=== PATIENT | male | born 1955 | race Caucasian/White ===

== ENCOUNTER 2021-08-05 01:08 | Outpatient (CLI) | payer MEDICARE, SELFPAY ==
--- NOTE | 2021-08-05 | DI.RAD_ITS ---
Exam(s) XR CHEST 2V PA LATERAL EXAM: XR CHEST 2V PA LATERAL CLINICAL HISTORY: COUGH, R05,CHILLS TECHNIQUE: 2D digital imaging was performed of the chest. Two images were obtained. PA and lateral views were obtained. COMPARISON: CR CHEST 2 VIEWS PA,LAT from 05/26/2015 CR CHEST 2 VIEWS PA,LAT from 05/26/2015 FINDINGS: MEDIASTINUM: Normal. HEART: Normal. PULMONARY VASCULATURE: Normal. LUNGS: There is a infiltrate seen in the left lower lobe. The lungs are hyperinflated suggesting und erlying COPD. PLEURAL SPACE: No pleural effusion or pneumothorax. BONE:Within normal limits for the patient's age. OTHER FINDINGS:Normal. IMPRESSION: Left lower lobe infiltrate suspicious for pneumonia. A follow-up chest x-ray should be considered to document resolution of the infiltrate. DATA REPOSITORY: RADIATION DOSE DELIVERED:
== END 2021-08-05 01:28 ==
PROVIDERS: PCP Family Medicine; Visit Provider Internal Medicine
DX: R05.9 Cough, unspecified (principal); R91.8 Other nonspecific abnormal finding of lung field
CPT/HCPCS: 71046

== ENCOUNTER 2021-08-08 13:03 | Inpatient (IN) | payer MEDICARE, SELFPAY ==
[2021-08-08] VITALS (7 sets, daily range): BP systolic 109–134; BP diastolic 65–107; PULSE 62–79; RESP 3–21; TEMP 36.3–37; O2SAT 90–93
--- NOTE | 2021-08-08 13:30 | DI.RAD_ITS ---
Exam(s) XR PORTABLE CHEST AP EXAM: XR PORTABLE CHEST AP CLINICAL HISTORY: cough, pneumonia TECHNIQUE: 2D digital imaging was performed of the chest. Two images was obtained. An AP view was o btained. COMPARISON: CR XR CHEST 2V PA LATERAL from 08/05/2021 CR XR CHEST 2V PA LATERAL from 08/05/2021 FINDINGS: MEDIASTINUM: Normal. HEART: Normal. PULMONARY VASCULATURE: Normal. LUNGS: There is a been a progression of the ground-glass opacities in the left lung and now involves the right lung. PLEURAL SPACE: No pleural effusion or pneumothorax. BONE:Within normal limits for the patient's age. OTHER FINDINGS:Normal. IMPRESSION: Progression radiographically of the pneumonia since 08/05/2021. DATA REPOSITORY: RADIATION DOSE DELIVERED:
--- NOTE | 2021-08-08 13:39 | W.ED.GENAD ---
Discharge Plan Disposition Patient Disposition: [facility] INPATIENT Condition: Stable Discharge Details Chief Complaint: RespSymp Clinical Impression: Pneumonia Primary Care Provider: Heath Anderson ED Provider: Yair Platt Home Meds and New Rx's Prescriptions: No Action naproxen sodium 550 MG tablet 2 tab PO DAILY RF: 0 omeprazole 20 MG capsule,delayed release(DR/EC) 20 mg PO DAILY RF: 0 albuterol sulfate 8.5 GM HFA aerosol inhaler 2 puff Inhalation PRN PRNRF: 0 Rituxan 500 MG/50 ML concentrate DIRECTED RF: 0 budesonide-formoterol [Symbicort] 60 PUFF HFA aerosol inhaler 2 puff Inhalation BID RF: 0 lisinopril 5 MG tablet 5 mg PO DAILY RF: 0 amoxicillin-pot clavulanate 1 TAB tablet 1 ea PO BID Qty: 20 RF: 0 Medical Decision Making 66-year-old male with a history of COPD presents with 10 days of upper respiratory illness. He states he had a negative Covid test. He was seen as an outpatient and given azithromycin for 5 days with a burst of prednisone, now has been taking Augmentin for 4 days. He has persistent cough, congestion, production of sputum, mild wheeze, and noted to have room air oxygenation in the mid to low 80 percentile at home today. He states he has had intermittent fevers and chills. Patient arrives to the ER afebrile, slightly hypertensive, oxygenating 90 to 91% on room air. He has audible rhonchi at the bases, left greater than right. He is failing outpatient antibiotic and has been hypoxic. Concern for pneumonia the patient was referred for laboratory testing and repeat chest x-ray. He has slight hyponatremia of 135. White blood cell count is 5. X-ray reveals persistent left base infiltrate. Given the patient underlying lung disease, poor response to a second outpatient oral antibiotic, I do feel he merits treatment in the hospital. HPI General Mode of arrival: ambulatory. Date/Time Provider Initiated Documentation: 08/08/21 13:12. Limitations to Documentation: no limitations. Information obtained by: patient. History of Present Illness 66 year old M presents to the emergency department with the chief complaint of Persistent cough for 10+ days, described as moderate, Quality is described as dull, and is localized to the chest. Patient reports no radiation. Patient started experiencing this day(s) and it has been intermittent. No relieving factors improve symptom(s), No exacerbating factors reported . Patient notes cough, diaphoresis, fever/chills and shortness of breath; denies chest pain and syncope. Patient did receive the following treatments prior to arrival, other (Augmentin) Related Data Home Medications Medication Instructions Recorded Confirmed albuterol sulfate 2 puff INHALATION PRN PRN 05/26/15 08/08/21 budesonide-formoterol [Symbicort 2 puff INHALATION BID 05/26/15 08/08/21 160/4.5 Mcg Inhaler] naproxen sodium 2 tab PO DAILY 05/26/15 08/08/21 omeprazole 20 mg PO DAILY 05/26/15 08/08/21 rituximab [Rituxan] DIRECTED 05/26/15 08/06/15 lisinopril 5 mg PO DAILY 08/05/15 08/08/21 amoxicillin-pot clavulanate 1 ea PO BID #20 tab 08/06/15 08/08/21 Previous Rx's Medication Instructions Recorded amoxicillin-pot clavulanate 1 ea PO BID #20 tab 08/06/15 Allergies Allergy/AdvReac Type Severity Reaction Status Date / Time celecoxib [From Celebrex] AdvReac Nausea Unverified 08/08/21 13:23 General Stated Complaint: RespSymp MADELEINE: 3 Review of Systems Narrative: Immunized against COVID-19. Fever and chills at home. Completed a Z-Milind and brief burst of prednisone during the first week of the month, now on day 4 of Augmentin. Positive sputum production. 8 systems reviewed and otherwise negative PFSH All Active Problems (Updated 08/08/21 @ 14:57 by Yair Platt MD) Pneumonia (Acute) COPD (chronic obstructive pulmonary disease) (Chronic) Medical History (Updated 08/08/21 @ 14:57 by Yair Platt MD) Rheumatoid arthritis Social History Smoking/Tobacco Use Status: Former Tobacco Use Smoking risk assessment performed?: Yes Alcohol Intake: current Drug use: Never Substance use type: does not use Do you feel safe at home: Yes Do you feel safe in your relationship?: Yes Exam Narrative Exam Narrative: GEN: awake, alert, oriented 3. Pleasant, well groomed, interactive. HEAD: Normocephalic, atraumatic ENT: Mucous membranes moist, oropharynx unremarkable, External ear exam unremarkable EYES: PERRL, EOMI NECK: Full ROM, no ROSANGELA, no menigismus CHEST/RESP: Few end expiratory wheezes, predominantly left base rhonchi CARDIOVASCULAR: RRR, no murmur, rub tonja. 2+ Rad pulse bilateral ABDOMEN: Soft, nontender, no mass. +Bowel sounds EXT: Full ROM, no edema, no rash Neuro: Grossly normal neurologic exam, conversant, interactive. Psych: Speech fluent, thoughts congruent, affect normal Course Vital Signs Vital signs: Vital Signs Temperature 37 C 08/08/21 13:18 Pulse 70 08/08/21 13:18 Respiratory Rate 18 08/08/21 13:18 Blood Pressure 134/107 H 08/08/21 13:18 Pulse Oximetry 91 L 08/08/21 13:18 Temperature 37 C 08/08/21 13:18 Temperature Source Temporal Artery Scan 08/08/21 13:18 Pulse 70 08/08/21 13:18 Respiratory Rate 18 08/08/21 13:18 Respiratory Effort Short of Breath 08/08/21 13:26 Blood Pressure 134/107 H 08/08/21 13:18 Blood Pressure Position Sitting 08/08/21 13:18 Pulse Oximetry 91 L 08/08/21 13:18 Oxygen Delivery Method Room Air 08/08/21 13:18 Oxygen Flow Rate 0 08/08/21 13:18 Pain Level 0 08/08/21 13:18 PAWSS Have you Been Recently Intoxicated or Drunk Within the Last 30 days?: No Have you Ever Experienced Previous Episodes of Alcohol Withdrawal?: No Have you ever Experienced Withdrawal Seizures?: No Have you ever Experienced Delirium Tremens(DT)s?: No Have you ever undergone Alcohol Rehabilitation Treatment (i.e, inpt ot outpatient treatment programs)?: No Have you ever Experienced Blackouts?: No Have you ever Combined Alcohol with other Downers within the last 90 days?: No Have you ever Combined Alcohol with any other Substance of Abuse during the last 90 days?: No Result: 0
[2021-08-08 13:50] LABS: Source Nasal/Nares
[2021-08-08] MEDS: Normal Saline 1,000 ML 150 ML IV (14:05)
[2021-08-08 14:10] LABS: Abs Immature Grans 0.04 10^3/uL (0.0-0.06); Absolute Lymphocyte Count 0.32 10^3/uL (1.2-3.4); Absolute Monocyte Count 0.33 10^3/uL (0.1-0.8); Absolute Neutrophil Count 4.64 10^3/uL (1.2-6.7); HCT 47.5 % (40.0-50.0); HGB 15.7 g/dL (13.5-17.5); Immature Grans % 0.8; MCH 29.3 pg (27.0-33.0); MCHC 33.1 % (32.0-36.0); MCV 88.6 fL (80-95); MPV 10.2 fL (8.0-11.0); Monocytes % 6.2; Nucleated RBC 0 %; Platelet Count 248 10^3/uL (130-400); RBC 5.36 10^6/uL (4.36-5.78); RDW 11.9 % (11.8-14.1); RDW-SD 38.4 fL; WBC 5.33 10^3/uL (4.4-10.8)
[2021-08-08] MEDS: methylPREDNISolone SUCC 125 MG VIAL IVP (14:11)
[2021-08-08] MEDS: Normal Saline Flush 10 ML SYR IVP ×2 (14:11→19:57)
[2021-08-08 14:23] LABS: ALT 31 U/L (16-63); AST 43 U/L (15-37); Albumin 2.7 g/dL (3.4-5.0); Alkaline Phosphatase 126 U/L (46-116); Anion Gap 8.2 mmol/L (3-11); BUN 16 mg/dL (7-18); Bilirubin, Total 0.6 mg/dL (0.2-1.0); CO2 28.8 mmol/L (21.0-32.0); CREATININE 1.1 mg/dL (0.70-1.30); Calcium 8.7 mg/dL (8.5-10.1); Chloride 98 mmol/L (98-107); Glucose 99 mg/dL (74-106); Sodium 135 mmol/L (136-145); Total Protein 6.9 g/dL (6.4-8.2)
[2021-08-08] MEDS: cefTRIAXone 1 GM/50 ML BAG IVPB (15:12)
[2021-08-08] MEDS: DOXYCYCLINE 100 MG in Normal Saline 100 ML IVPB (15:51)
[2021-08-08 15:58] LABS: COVID-19 PCR Negative (Negative)
--- NOTE | 2021-08-08 16:00 | DI.VRAD_ITS ---
PROCEDURE INFORMATION: Exam: XR Chest Exam date and time: 08/08/2021 1:40 PM Age: 66 years old Clinical indication: Cough TECHNIQUE: Imaging protocol: XR of the chest. Views: 1 view. COMPARISON: CR XR CHEST 2V PA LATERAL 08/05/2021 10:31 AM FINDINGS: Lungs: Hyperinflation. No focal consolidation. Mild patchy right mid and lower lung zone ground-glass opacities, similar to prior. Possible new mild patchy right mid and lower ground-glass lung zone opacities. Pleural spaces: Unremarkable. No pleural effusion. No pneumothorax. Heart/Mediastinum: Unremarkable. No cardiomegaly. Bones/joints: Unremarkable. IMPRESSION: Mild patchy bilateral ground-glass opacities, similar on left and new on right. In the appropriate setting, findings may represent multifocal pneumonia including Covid pneumonia. Dictated and Authenticated by: Keira Spencer MD. Ordering:TIANA Mazariegos MD
[2021-08-08] MEDS: Albuterol/Ipratropium 3 ML UPD VIAL UPD (19:57)
[2021-08-08] MEDS: Doxycycline Hyclate 100 MG CAP PO (20:06)
[2021-08-08] MEDS: guaiFENesin 600 MG TABCR PO (20:06)
[2021-08-08] MEDS: Benzonatate 100 MG CAP PO (20:06)
[2021-08-08] MEDS: Naproxen 500 MG TAB PO (22:39)
[2021-08-09] VITALS (7 sets, daily range): BP systolic 110–135; BP diastolic 75–85; PULSE 53–74; RESP 1–19; TEMP 36.2–36.7; O2SAT 93–95
[2021-08-09] MEDS: Normal Saline 1,000 ML 150 ML IV ×2 (00:11→06:05)
[2021-08-09] MEDS: Heparin 5,000 UNITS/ML VIAL 5000 UNITS SC ×3 (03:18→18:27)
[2021-08-09] MEDS: Acetaminophen 325 MG TAB 650 MG PO ×3 (03:29→23:25)
[2021-08-09 06:54] LABS: Abs Immature Grans 0.01 10^3/uL (0.0-0.06); Absolute Lymphocyte Count 0.27 10^3/uL (1.2-3.4); Absolute Monocyte Count 0.19 10^3/uL (0.1-0.8); Absolute Neutrophil Count 1.17 10^3/uL (1.2-6.7); HCT 39.9 % (40.0-50.0); HGB 13.3 g/dL (13.5-17.5); Immature Grans % 0.6; Lymphocytes % 16.5; MCH 29.2 pg (27.0-33.0); MCHC 33.3 % (32.0-36.0); MCV 87.5 fL (80-95); MPV 10.6 fL (8.0-11.0); Monocytes % 11.6; Neutrophils % 71.3; Nucleated RBC 0 %; RBC 4.56 10^6/uL (4.36-5.78); RDW 11.9 % (11.8-14.1); RDW-SD 38.5 fL
[2021-08-09 06:59] LABS: WBC 1.64 10^3/uL (4.4-10.8)
[2021-08-09 07:08] LABS: ALT 29 U/L (16-63); AST 35 U/L (15-37); Albumin 2.2 g/dL (3.4-5.0); Alkaline Phosphatase 93 U/L (46-116); Anion Gap 6.8 mmol/L (3-11); BUN 18 mg/dL (7-18); Bilirubin, Total 0.4 mg/dL (0.2-1.0); CO2 28.2 mmol/L (21.0-32.0); Calcium 8.5 mg/dL (8.5-10.1); Chloride 106 mmol/L (98-107); Glucose 170 mg/dL (74-106); Magnesium 2.2 mg/dL (1.8-2.4); Potassium 4.3 mmol/L (3.5-5.1); Sodium 141 mmol/L (136-145); Total Protein 5.8 g/dL (6.4-8.2)
--- NOTE | 2021-08-09 07:08 | HPE_ITS ---
Date of service: 08/08/21 Time of Service: 16:41 Assessment and Plan Assessment and plan (1) Pneumonia: Status: Acute Assessment and plan: LLL infiltrate that has increased since previous xray of 08/05/21. WBC count normal. Viral etiology? Rocephin and Doxycycline initiated in ED; continue. Qualifiers: Pneumonia type: due to unspecified organism Laterality: left (2) COPD (chronic obstructive pulmonary disease): Status: Chronic Assessment and plan: Former smoker Secondary to pneumonia. Cont Symbicort / home med. Scheduled Duonebs. PRN albuterol nebs. IV solumedrol given in ED. Cont oral prednisone 40mg daily. For cough, Mucinex and tessalon perls. Add codeine if needed. (3) Rheumatoid arthritis: Status: Acute History of Present Illness History of Present Illness Chief Complaint: Shortness of breath and cough Narrative: This is a 66 yo male that has a PMH of COPD and RA. He presented to the ED with c/o cough, shortness of breath, feeling hot/cold, for 10+ days. The cough is occasionally productive but he feels there is phlegm that he can't expectorate. He notes hearing wheezes. No CP/palpitations. He was evaluated as an outpt and initially txd with azithromycin for 5 days and prednisone. He was then given augmentin that he has taken TID for 2 1/2 days. He was COVID negative as an outpt. CXR showed a possibly developing LLL infiltrate. In the ED he was afebrile. RA oxygen saturation of 90-91%. WBC count normals. Rhonchi were noted. He was given a nebulized albuterol treat ment with some noted improvement. Covid and influenza testing were negative. CXR showed increased LLL infiltrate. Admitted for further treatment given failure of outpt tx. Review of Systems All systems reviewed & are unremarkable except as noted in HPI and below PFSH All Active Problems (Updated 08/09/21 @ 07:22 by Dimas Cox MD) Rheumatoid arthritis (Acute) Pneumonia (Acute) COPD (chronic obstructive pulmonary disease) (Chronic) Medical History Rheumatoid arthritis Social History Smoking/Tobacco Use Status: Former Tobacco Use Smoking risk assessment performed?: Yes Alcohol Intake: current Drug use: Never Substance use type: does not use Do you feel safe at home: Yes Do you feel safe in your relationship?: Yes Meds Allergies and Home Medications Allergies Allergy/AdvReac Type Severity Reaction Status Date / Time celecoxib [From Celebrex] AdvReac Nausea Unverified 08/08/21 13:23 Home Medications Medication Instructions Recorded Confirmed Type albuterol sulfate 2 puff INHALATION PRN PRN 05/26/15 08/08/21 History budesonide-formoterol [Symbicort 2 puff INHALATION BID 05/26/15 08/08/21 History 160/4.5 Mcg Inhaler] naproxen sodium 2 tab PO DAILY 05/26/15 08/08/21 History omeprazole 20 mg PO DAILY 05/26/15 08/08/21 History rituximab [Rituxan] DIRECTED 05/26/15 08/06/15 History lisinopril 5 mg PO DAILY 08/05/15 08/08/21 History amoxicillin-pot clavulanate 1 ea PO BID #20 tab 08/06/15 08/08/21 Rx Exam Const General: cooperative, no acute distress and well developed Nutritional Appearance: overweight Orientation: alert and oriented x3 Eyes General: appearance normal, both eyes and all related structures Sclera: sclerae normal Chest Chest: no tenderness Resp Effort & Inspection: normal respiratory effort Auscultation: clear to auscultation bilaterally and diminished lung sounds Cardio Rate: regular rate Rhythm: regular rhythm Heart Sounds: S1 normal and S2 normal GI Palpation: soft and nontender Auscultation: normal bowel sounds Skin General skin exam: no rashes or lesions noted Extrem General: no pedal edema and no calf tenderness Psych Appearance: grossly normal Mental Status: mental status grossly normal Speech and Movement: speech and movement normal Affect: normal affect Results Labs Result diagrams: 08/08/21 14:05 08/08/21 14:05 Labs: Laboratory Results - last 24 hr 08/08/21 08/08/21 08/08/21 13:45 14:05 14:05 WBC 5.33 RBC 5.36 Hgb 15.7 Hct 47.5 MCV 88.6 MCH 29.3 MCHC 33.1 RDW 11.9 Plt Count 248 MPV 10.2 Immature Gran % 0.8 Neutrophils % 87.0 Lymphocytes % 6.0 Monocytes % 6.2 Eosinophils % 0.0 Basophils % 0.0 Nucleated RBC % 0 Absolute Neutrophils 4.64 Absolute Lymphocytes 0.32 L Absolute Monocytes 0.33 Absolute Eosinophils 0.00 Absolute Basophils 0.00 Sodium 135 L Potassium 5.0 Chloride 98 Carbon Dioxide 28.8 Anion Gap 8.2 BUN 16 Creatinine 1.1 Estimated GFR/1.73 m2 >= 60.00 Glucose 99 Calcium 8.7 Total Bilirubin 0.6 AST 43 H ALT 31 Alkaline Phosphatase 126 H Total Protein 6.9 Albumin 2.7 L COVID-19 Source Nasal/Nares SARS-CoV-2 (PCR) Negative Last Vital Signs Temp 36.2 C L 08/09/21 00:12 Pulse 59 L 08/09/21 00:12 Resp 16 08/09/21 00:12 BP 110/75 08/09/21 00:12 Pulse Ox 95 08/09/21 05:25 PAWSS Have you Been Recently Intoxicated or Drunk Within the Last 30 days?: No Have you Ever Experienced Previous Episodes of Alcohol Withdrawal?: No Have you ever Experienced Withdrawal Seizures?: No Have you ever Experienced Delirium Tremens(DT)s?: No Have you ever undergone Alcohol Rehabilitation Treatment (i.e, inpt ot outpatient treatment programs)?: No Have you ever Experienced Blackouts?: No Have you ever Combined Alcohol with other Downers within the last 90 days?: No Have you ever Combined Alcohol with any other Substance of Abuse during the last 90 days?: No Result: 0
[2021-08-09 07:15] LABS: Diff Comment Agrees w/ Instrument; Platelet Count 188 10^3/uL (130-400); RBC Morphology Normal
[2021-08-09] MEDS: Benzonatate 100 MG CAP PO ×3 (08:14→21:07)
[2021-08-09] MEDS: guaiFENesin 600 MG TABCR PO ×2 (08:14→21:07)
[2021-08-09] MEDS: predniSONE 20 MG TAB 40 MG PO (08:14)
[2021-08-09] MEDS: Budesonide/Formoterol 80/4.5 6.9 GM 60 PUFF INH IH ×2 (08:14→21:04)
[2021-08-09] MEDS: Lisinopril 5 MG TAB PO (08:14)
[2021-08-09] MEDS: Doxycycline Hyclate 100 MG CAP PO (08:14)
[2021-08-09] MEDS: Naproxen 500 MG TAB PO ×2 (08:14→21:07)
[2021-08-09] MEDS: Albuterol/Ipratropium 3 ML UPD VIAL UPD ×3 (08:14→21:05)
[2021-08-09] MEDS: Omeprazole 20 MG CAPCR PO (08:14)
[2021-08-09] MEDS: Normal Saline Flush 10 ML SYR IVP (14:22)
[2021-08-09] MEDS: cefTRIAXone 1 GM/50 ML BAG IVPB (14:22)
--- NOTE | 2021-08-09 15:04 | W.PM.PROGNOT ---
Date of Service Date of service: 08/09/21 Time of Service: 15:05 Assessment and Plan Assessment and plan (1) Pneumonia: Status: Acute Assessment and plan: LLL infiltrate that has increased since previous xray of 08/05/21. WBC count normal on admission; now 1.64 with an ANC of 1170. He is immunocompromised d/t 3x/year administration of Rituxan for RA. Afebrile. Viral etiology? COVID negative on admission and multiple times recently prior to admission. found she was COVID position with mild URI sxs just after getting her COVID booster. Rocephin and Doxycycline initiated in ED. Continued Ropcephin. Monitor CBC/ANC. If develops fever or becomes neutropenic, broaden antibiotic coverage. Qualifiers: Pneumonia type: due to unspecified organism Laterality: left (2) COPD (chronic obstructive pulmonary disease): Status: Chronic Assessment and plan: Former smoker Secondary to pneumonia. Cont Symbicort / home med. Scheduled Duonebs. PRN albuterol nebs. IV solumedrol given in ED. Cont oral prednisone 40mg daily. For cough, Mucinex and tessalon perls. Add codeine if needed. (3) Rheumatoid arthritis: Status: Acute Assessment and plan: On Rituxan 3x / year. Subjective Subjective Patient reports: no new complaints, tolerating a regular diet and afebrile; denies nausea, vomiting and shortness of breath Interval history since last seen: Cough with small amounts of sputum on occasion. Exam Const General: cooperative, no acute distress and well developed Nutritional Appearance: overweight Orientation: alert and oriented x3 Eyes General: appearance normal, both eyes and all related structures Sclera: sclerae normal Chest Chest: no tenderness Resp Effort & Inspection: normal respiratory effort Auscultation: clear to auscultation bilaterally and diminished lung sounds Cardio Rate: regular rate Rhythm: regular rhythm Heart Sounds: S1 normal and S2 normal GI Palpation: soft and nontender Auscultation: normal bowel sounds Skin General skin exam: no rashes or lesions noted Extrem General: no pedal edema and no calf tenderness Psych Appearance: grossly normal Mental Status: mental status grossly normal Speech and Movement: speech and movement normal Affect: normal affect Objective Last Vital Signs Temp 36.2 C L 08/09/21 08:27 Pulse 53 L 08/09/21 08:27 Resp 16 08/09/21 08:27 BP 135/85 08/09/21 08:27 Pulse Ox 95 08/09/21 08:27 Laboratory Results - last 24 hr 08/08/21 08/09/21 08/09/21 13:45 06:20 06:20 WBC 1.64 L* D RBC 4.56 Hgb 13.3 L D Hct 39.9 L MCV 87.5 MCH 29.2 MCHC 33.3 RDW 11.9 Plt Count 188 MPV 10.6 Immature Gran % 0.6 Neutrophils % 71.3 Lymphocytes % 16.5 Monocytes % 11.6 Eosinophils % 0.0 Basophils % 0.0 Nucleated RBC % 0 Absolute Neutrophils 1.17 L Absolute Lymphocytes 0.27 L Absolute Monocytes 0.19 Absolute Eosinophils 0.00 Absolute Basophils 0.00 RBC Morphology Normal Sodium 141 Potassium 4.3 Chloride 106 Carbon Dioxide 28.2 Anion Gap 6.8 BUN 18 Creatinine 1.0 Estimated GFR/1.73 m2 >= 60.00 Glucose 170 H Calcium 8.5 Magnesium 2.2 Total Bilirubin 0.4 AST 35 ALT 29 Alkaline Phosphatase 93 Total Protein 5.8 L Albumin 2.2 L SARS-CoV-2 (PCR) Negative PAWSS Have you Been Recently Intoxicated or Drunk Within the Last 30 days?: No Have you Ever Experienced Previous Episodes of Alcohol Withdrawal?: No Have you ever Experienced Withdrawal Seizures?: No Have you ever Experienced Delirium Tremens(DT)s?: No Have you ever undergone Alcohol Rehabilitation Treatment (i.e, inpt ot outpatient treatment programs)?: No Have you ever Experienced Blackouts?: No Have you ever Combined Alcohol with other Downers within the last 90 days?: No Have you ever Combined Alcohol with any other Substance of Abuse during the last 90 days?: No Result: 0
--- NOTE | 2021-08-09 16:56 | PDOC.CMIN ---
- If Service Date Differs Date of service: 08/09/21 Time of Service: 16:56 Care Management Initial Assess REASON FOR HOSPITALIZATION:: Pneumonia, COPD Exacerbation PAST MEDICAL HISTORY/PAST SURGICAL HISTORY:: Rheumatoid arthritis;Rituxan 3x / year. Pneumonia. COPD (chronic obstructive pulmonary disease) (Chronic) PREVIOUS FUNCTIONAL STATUS/SOCIAL/FAMILY SUPPORTS:: Resides in [place] with , Li. Independent at baseline in the community. CURRENT FUNCTIONAL STATUS:: Yair continues to be treated for pneumonia with COPD exacerbation, he remains on IV ABX, duonebs, steroids and cough suppresants. He is maintaining sats on RA. He is up independently in his room with no needs or concerns noted at this time. CM continues to follow. ADVANCE DIRECTIVES:: None on file at [facility]. Has patient been provided with info about the portal/API?: No Did the patient sign up for the portal?: No CODE STATUS:: Full Code INSURANCE COVERAGE / FINANCIAL ISSUES:: Multiple insurances listed;. [employer]. Medicare. [employer]. 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 PATIENT/FAMILY EDUCATION NEEDS:: Review discharge instructions, discuss Ask Me Three. ANTICIPATED BARRIERS TO DISCHARGE:: None identified. TRANSPORTATION:: Via private vehicle with family or a friend. PLAN:: Anticipate Yair will return home with no additional services, when ready per MD. He will follow up with his PCP and plan of care as prescribed. He will transport via private vehicle with family or a friend.
--- NOTE | 2021-08-10 | DI.CT_ITS ---
Exam(s) CT CHEST PE CTA EXAM: CT CHEST PE CTA CLINICAL HISTORY: Increased SOA. Pneumonia. TECHNIQUE: Imaging Protocol: Axial CT angiography was performed with multi-slice acquisition and mu lti-planar and/or 3D reconstructions. CONTRAST MATERIAL: Intravenous: Omnipaque 350 Contrast volume:90 mL COMPARISON: CR,XR XR PORTABLE CHEST AP from 08/08/2021 CR,XR XR PORTABLE CHEST AP from 08/08/2021 FINDINGS: Tracheobronchial tree: Patent where visualized. Pulmonary parenchyma: Multifocal bilateral ground-glass opacities are present. Small areas of atelec tasis or consolidation are seen in the lung bases bilaterally, right greater than left. No user experience architect ural distortion. Pulmonary Arteries: No evidence of filling defect to suggest pulmonary emboli. Mediastinum and Kimmy: There are enlarged mediastinal and hilar lymph nodes. These are likely reactiv e. The esophagus is unremarkable except for small hiatal hernia. Visualized thyroid gland: Unremarkable. Pleura: No pneumothorax. Small bilateral pleural effusions, left greater than right. Heart: The heart is not dilated. No coronary artery calcifications are seen. No pericardial effusion. Aorta: Thoracic aorta non-dilated. No evidence of dissection. Mild atherosclerosis. Upper abdomen: Status post cholecystectomy. Soft tissues: Unremarkable. Bones: Within normal limits for the patient's age. IMPRESSION: 1. No evidence of pulmonary embolism, thoracic aortic dissection or aneurysm. 2. Multifocal bilateral pneumonia. Possibility of a COVID-19 pneumonia cannot be excluded. 3. Small bilateral pleural effusions. 4. Mediastinal and hilar lymph node enlargement. This may be reactive. RADIATION DOSE DELIVERED: Total DLP DATA REPOSITORY: All CT scans at this facility are submitted to the National Radiology Data Registry (NRDR) Dose Index Registry (DIR) with the [employer] [place] [employer] (ACR). RADIATION OPTIMIZATION: All CT scans at this facility use at least one of these dose optimization te chniques: automated exposure control; mA and/or kV adjustment per patient size (includes targeted exa ms where dose is matched to clinical indication); or iterative reconstruction.
[2021-08-10] MEDS: Heparin 5,000 UNITS/ML VIAL 5000 UNITS SC ×3 (02:18→18:48)
[2021-08-10 07:32] LABS: Abs Immature Grans 0.06 10^3/uL (0.0-0.06); Absolute Lymphocyte Count 0.29 10^3/uL (1.2-3.4); Absolute Monocyte Count 0.22 10^3/uL (0.1-0.8); Absolute Neutrophil Count 6.42 10^3/uL (1.2-6.7); HCT 38.3 % (40.0-50.0); Immature Grans % 0.9; Lymphocytes % 4.1; MCH 29.5 pg (27.0-33.0); MCHC 33.9 % (32.0-36.0); MCV 86.8 fL (80-95); MPV 10.7 fL (8.0-11.0); Monocytes % 3.1; Neutrophils % 91.9; Nucleated RBC 0 %; Platelet Count 231 10^3/uL (130-400); RBC 4.41 10^6/uL (4.36-5.78); WBC 6.99 10^3/uL (4.4-10.8)
[2021-08-10 07:44] VITALS: BP 126/70; PULSE 76; RESP 16; TEMP 36.8; O2SAT 94
[2021-08-10] MEDS: predniSONE 20 MG TAB 40 MG PO (08:55)
[2021-08-10] MEDS: Albuterol/Ipratropium 3 ML UPD VIAL UPD ×3 (08:55→19:38)
[2021-08-10] MEDS: Naproxen 500 MG TAB PO ×2 (08:55→19:39)
[2021-08-10] MEDS: Lisinopril 5 MG TAB PO (08:55)
[2021-08-10] MEDS: guaiFENesin 600 MG TABCR PO ×2 (08:55→19:39)
[2021-08-10] MEDS: Budesonide/Formoterol 80/4.5 6.9 GM 60 PUFF INH IH ×2 (08:55→19:57)
[2021-08-10] MEDS: Omeprazole 20 MG CAPCR PO (08:55)
[2021-08-10] MEDS: Benzonatate 100 MG CAP PO ×3 (08:55→19:39)
[2021-08-10 09:25] VITALS: RESP 1
--- NOTE | 2021-08-10 10:34 | CMPROGNOTE_ITS ---
- If Service Date Differs Date of service: 08/10/21 Time of Service: 10:34 Care Management Progress Note S/O: Yair was pleasant and easily engaged in conversation when CM met with him. He is being treated with IV antibiotics and steroids. He has been up independently in his room and would like a shower. There is not a shower in his room, and CM reported request to nursing. CM will continue to support patient and his discharge planning needs. A: 66 year old male admitted to [facility] on 08/08/21 for Pneumonia, COPD exacerbation P: Anticipate Yair will return home with no additional services when ready per MD. He will follow up with his PCP and plan of care as prescribed. He will transport via private vehicle with family or a friend.
[2021-08-10] MEDS: cefTRIAXone 1 GM/50 ML BAG IVPB (14:02)
[2021-08-10] MEDS: Normal Saline Flush 10 ML SYR IVP (14:02)
--- NOTE | 2021-08-10 14:39 | TELEFU_ITS ---
Date of service: 08/10/21 Time of Service: 14:39 Nutrition Note NOTE: 66yo male with PNA, COPD. Meds: Benzonatate, Budesonide, Ceftriaxon, Guaifenesin, Lisinopril, Naproxen, Omeprazole, Prednisone with Acetaminophen, Albuterol, Karen and Polyethylene glycol prn. Current BMI of 28.2kh/m2 is c/w overweight but not of clinical concern and stable. He is tolerating regular/normal diet order with 100% intake from meal trays since admission. Estimated nutrition needs: 2028kcals (REEx1.3AF), 98g protein (1.2g/kg) and 2028mL fluid (1mL/kcal). Diagnosis: no notable nutrition diagnoses Intervention: no aggressive nutrition intervention planned at this time Monitoring/evaluation: Will follow for any deterioration of nutrition status during admission. Roberto Carlos Rizo NDTR ? Chain Forming Machine Operator Time Spent in Nutritional Counseling and Treatment: 0
[2021-08-10 15:30] VITALS: BP 122/75; PULSE 83; RESP 17; TEMP 37; O2SAT 94
--- NOTE | 2021-08-10 16:44 | W.PM.PROGNOT ---
Date of Service Date of service: 08/10/21 Time of Service: 16:44 Assessment and Plan Assessment and plan (1) Pneumonia: Status: Acute Assessment and plan: LLL infiltrate that has increased since previous xray of 08/05/21. WBC count normal on admission; then 1.64 with an ANC of 1170 on 08/09. WBC and ANC normal today. He is immunocompromised d/t 3x/year administration of Rituxan for RA. Afebrile. Viral etiology? COVID negative on admission and multiple times recently prior to admission. found she was COVID position with mild URI sxs just after getting her COVID booster. Rocephin and Doxycycline initiated in ED. Continued Ropcephin. Monitor CBC/ANC. Given increased ESCOBAR today and rales, will obtain CT chest to further evaluate pneumonia and r/o pulmonary emboli. Qualifiers: Pneumonia type: due to unspecified organism Laterality: left (2) COPD (chronic obstructive pulmonary disease): Status: Chronic Assessment and plan: Former smoker Secondary to pneumonia. Cont Symbicort / home med. Scheduled Duonebs. PRN albuterol nebs. IV solumedrol given in ED. Cont oral prednisone 40mg daily. For cough, Mucinex and tessalon perls. Add codeine if needed. (3) Rheumatoid arthritis: Status: Acute Assessment and plan: On Rituxan 3x / year. Subjective Subjective Patient reports: no new complaints, tolerating a regular diet, shortness of breath (With ambulation to bathroom and back. Had not occured during this hospitalization until today. ) and afebrile; denies nausea and vomiting Interval history since last seen: Cough with small amounts of sputum on occasion. Exam Const General: cooperative, no acute distress and well developed Nutritional Appearance: overweight Orientation: alert and oriented x3 Eyes General: appearance normal, both eyes and all related structures Sclera: sclerae normal Chest Chest: no tenderness Resp Effort & Inspection: normal respiratory effort Auscultation: clear to auscultation bilaterally, diminished lung sounds and rales Cardio Rate: regular rate Rhythm: regular rhythm Heart Sounds: S1 normal and S2 normal GI Palpation: soft and nontender Auscultation: normal bowel sounds Skin General skin exam: no rashes or lesions noted Extrem General: no pedal edema and no calf tenderness Psych Appearance: grossly normal Mental Status: mental status grossly normal Speech and Movement: speech and movement normal Affect: normal affect Objective Last Vital Signs Temp 37 C 08/10/21 15:30 Pulse 83 08/10/21 15:30 Resp 17 08/10/21 15:30 BP 122/75 08/10/21 15:30 Pulse Ox 94 08/10/21 15:30 Laboratory Results - last 24 hr 08/10/21 06:41 WBC 6.99 D RBC 4.41 Hgb 13.0 L Hct 38.3 L MCV 86.8 MCH 29.5 MCHC 33.9 RDW 12.0 Plt Count 231 MPV 10.7 Immature Gran % 0.9 Neutrophils % 91.9 Lymphocytes % 4.1 Monocytes % 3.1 Eosinophils % 0.0 Basophils % 0.0 Nucleated RBC % 0 Absolute Neutrophils 6.42 Absolute Lymphocytes 0.29 L Absolute Monocytes 0.22 Absolute Eosinophils 0.00 Absolute Basophils 0.00 PAWSS Have you Been Recently Intoxicated or Drunk Within the Last 30 days?: No Have you Ever Experienced Previous Episodes of Alcohol Withdrawal?: No Have you ever Experienced Withdrawal Seizures?: No Have you ever Experienced Delirium Tremens(DT)s?: No Have you ever undergone Alcohol Rehabilitation Treatment (i.e, inpt ot outpatient treatment programs)?: No Have you ever Experienced Blackouts?: No Have you ever Combined Alcohol with other Downers within the last 90 days?: No Have you ever Combined Alcohol with any other Substance of Abuse during the last 90 days?: No Result: 0
[2021-08-10] MEDS: Omnipaque 350 MG/ML 100 ML BTL IJ (17:33)
--- NOTE | 2021-08-10 17:51 | DI.VRAD_ITS ---
Addendum created by Jordon Amaro MD on 08/10/2021 6:18:59 PM EST: Mild cardiac enlargement. No pericardial effusion. No specific chamber pathology evident. Initial report created on 08/10/2021 5:51:06 PM EST: PROCEDURE INFORMATION: Exam: CTA Chest With Contrast Exam date and time: 08/10/2021 4:44 PM Age: 66 years old Clinical indication: Condition or disease; Lung condition and disease; Patient HX: Increased SOA, pneumonia TECHNIQUE: Imaging protocol: Computed tomographic angiography of the chest with contrast. 3D rendering (Not supervised by radiologist): MIP and/or 3D reconstructed images were created by the technologist. COMPARISON: CR XR PORTABLE CHEST AP 08/08/2021 2:11 PM FINDINGS: Pulmonary arteries: Pulmonary arteries well opacified. No embolism. Aorta: Thoracic aorta is unremarkable in course and caliber. Lungs: Multifocal pneumonitis is evident. There is multi segmental airspace consolidation in the left upper lobe and the left lower lobe. There is near holo lobar involvement of the right lower lobe. The medial segment of the right middle lobe has infiltrative features. The right upper lobe has some subsegmental areas of mild infiltrate. The pattern of pneumonia has somewhat of a ground-glass appearance. A denser area of subsegmental consolidation is noted in the right posterior costophrenic sulcus. This may represent atelectasis. Possibility of a COVID-19 pneumonia cannot be excluded. Recommend clinical correlation. Pleural spaces: Small left pleural effusion. Minimal right pleural effusion. Heart: See Lymph nodes finding. Lymph nodes: Left AP window lymph node is enlarged measuring 2.4 x 1.8 cm. Subcarinal lymph node is 2.4 x 1.9 cm. Diaphragm: Minor hiatal hernia. No acute edema. Gallbladder and bile ducts: Previous cholecystectomy. Bones/joints: Unremarkable. No acute fracture. Soft tissues: Unremarkable. IMPRESSION: 1. Bilateral pneumonitis. 2. No pulmonary arterial embolism evident. 3. Minor bilateral pleural effusions. 4. Mild lymph node enlargement of mediastinum. Dictated and Authenticated by: Jordon Amaro MD. Ordering:MELISSA Cochran MD
--- NOTE | 2021-08-10 18:11 | NUR.NOTE ---
Nursing Note: Spoke with patient and tonight, states they talked with MD Cox today, told him he would switch to a q24 blood thinner, was not changed. Patient states he has not been getting any sleep and feels he would really like to rest more tonight. Advised I would see if night nurse can cluster care and limit interruptions. Also suggested to patient that he can ring when he wakes up at night to void and cluster care then.
[2021-08-10 19:30] VITALS: BP 128/78; PULSE 88; RESP 18; TEMP 37.9; O2SAT 94
[2021-08-10 19:38] VITALS: TEMP 37.9; O2SAT 94
[2021-08-10] MEDS: Acetaminophen 325 MG TAB 650 MG PO (19:38)
--- NOTE | 2021-08-10 19:45 | NUR.NOTE ---
Nursing Note: Spoke with patient, still not feeling well, felt better yesterday, and worse again today like when he came to the ED. Patient states it hurts his chest when he takes a deep breath, reports it as a tightness. States he feels like he is getting winded easily and just can't catch his breath. Patient report previously being able to get up to 4000 on his IS, now only able to get to around 200, occasionally 3500, but very difficult to get there. Skin color looks slightly red-purplish, temp 37.9. Lung sounds clear. ADAIR Rdz notified, and assessed pt at well. Pt very frustrated when mentioning potential COVID test again. Patient states he feels this is related to lack of sleep. MD [place] notified, pt to get [employer] covid swab tonight and encourage rest tonight. Will continue to monitor.
[2021-08-10 21:42] LABS: COVID-19 PCR POSITIVE (Negative)
--- NOTE | 2021-08-10 21:56 | W.PM.PROGNOT ---
Date of Service Date of service: 08/10/21 Time of Service: 21:57 Subjective Subjective Interval history since last seen: Calledfor fever. case reviewed. briefly, 66 male with RA and known COVID exposure here with pneumonia, on Rocephin. Has been COVID negative x 2. fever this evening at approx 48 hour point [address] treatment[address] chest shows bilateral and substantial pneumonits c/w COVID and, though comparison is difficult, to my eye appears progressive from earlier CXR. repeat COVID tonight is positive. O2 sat 94%. A/P: COVID pneumonitis. Based on immunocompromised status and worsening imaging I would, despite present freedom from oxygen requirement, certified alcohol and drug counselor patient at moderate to high risk of progression and I think aggressive treatment would be sky. Will begin Remdesivir, steroids and Baricitinib. Objective Last Vital Signs Temp 37.9 C H 08/10/21 19:38 Pulse 83 08/10/21 15:30 Resp 17 08/10/21 15:30 BP 122/75 08/10/21 15:30 Pulse Ox 94 08/10/21 19:38 Laboratory Results - last 24 hr 08/10/21 08/10/21 06:41 20:05 WBC 6.99 D RBC 4.41 Hgb 13.0 L Hct 38.3 L MCV 86.8 MCH 29.5 MCHC 33.9 RDW 12.0 Plt Count 231 MPV 10.7 Immature Gran % 0.9 Neutrophils % 91.9 Lymphocytes % 4.1 Monocytes % 3.1 Eosinophils % 0.0 Basophils % 0.0 Nucleated RBC % 0 Absolute Neutrophils 6.42 Absolute Lymphocytes 0.29 L Absolute Monocytes 0.22 Absolute Eosinophils 0.00 Absolute Basophils 0.00 COVID-19 Source NASOPHARYX SARS-CoV-2 (PCR) POSITIVE A* PAWSS Have you Been Recently Intoxicated or Drunk Within the Last 30 days?: No Have you Ever Experienced Previous Episodes of Alcohol Withdrawal?: No Have you ever Experienced Withdrawal Seizures?: No Have you ever Experienced Delirium Tremens(DT)s?: No Have you ever undergone Alcohol Rehabilitation Treatment (i.e, inpt ot outpatient treatment programs)?: No Have you ever Experienced Blackouts?: No Have you ever Combined Alcohol with other Downers within the last 90 days?: No Have you ever Combined Alcohol with any other Substance of Abuse during the last 90 days?: No Result: 0
[2021-08-11] VITALS (11 sets, daily range): BP systolic 113–130; BP diastolic 69–82; PULSE 67–78; RESP 1–24; TEMP 36.6–37.5; O2SAT 89–97
[2021-08-11] MEDS: REMDESIVIR 200 MG in Normal Saline 250 ML 250 MG IVPB (00:03)
[2021-08-11] MEDS: Dexamethasone 4 MG/ML VIAL 6 MG IVP (00:03)
[2021-08-11] MEDS: Melatonin 3 MG TAB PO (00:04)
[2021-08-11] MEDS: Naproxen 500 MG TAB PO ×2 (07:46→20:40)
[2021-08-11] MEDS: guaiFENesin 600 MG TABCR PO ×2 (07:46→20:40)
[2021-08-11] MEDS: Dexamethasone 4 MG TAB PO (07:46)
[2021-08-11] MEDS: Benzonatate 100 MG CAP PO ×3 (07:46→20:40)
[2021-08-11] MEDS: Omeprazole 20 MG CAPCR PO (07:46)
[2021-08-11] MEDS: Lisinopril 5 MG TAB PO (07:47)
[2021-08-11] MEDS: predniSONE 20 MG TAB 40 MG PO (07:47)
[2021-08-11 07:57] LABS: Abs Immature Grans 0.07 10^3/uL (0.0-0.06); Absolute Lymphocyte Count 0.11 10^3/uL (1.2-3.4); Absolute Monocyte Count 0.11 10^3/uL (0.1-0.8); Absolute Neutrophil Count 5.43 10^3/uL (1.2-6.7); HCT 42.3 % (40.0-50.0); HGB 14.3 g/dL (13.5-17.5); Immature Grans % 1.2; Lymphocytes % 1.9; MCH 29.4 pg (27.0-33.0); MCHC 33.8 % (32.0-36.0); MPV 10.2 fL (8.0-11.0); Monocytes % 1.9; Nucleated RBC 0 %; Platelet Count 291 10^3/uL (130-400); RBC 4.86 10^6/uL (4.36-5.78); RDW 12.4 % (11.8-14.1); RDW-SD 39.8 fL; WBC 5.72 10^3/uL (4.4-10.8)
[2021-08-11 08:11] LABS: ALT 50 U/L (16-63); AST 57 U/L (15-37); Albumin 2.3 g/dL (3.4-5.0); Alkaline Phosphatase 124 U/L (46-116); Anion Gap 9.6 mmol/L (3-11); BUN 14 mg/dL (7-18); Bilirubin, Total 0.5 mg/dL (0.2-1.0); CO2 26.4 mmol/L (21.0-32.0); Chloride 105 mmol/L (98-107); Glucose 119 mg/dL (74-106); Potassium 4.3 mmol/L (3.5-5.1); Sodium 141 mmol/L (136-145); Total Protein 6.1 g/dL (6.4-8.2)
[2021-08-11] MEDS: Heparin 5,000 UNITS/ML VIAL 5000 UNITS SC ×2 (08:19→20:40)
--- NOTE | 2021-08-11 09:47 | PDOC.CMPRO ---
- If Service Date Differs Date of service: 08/11/21 Time of Service: 09:47 Care Management Progress Note S/O: Yair tested positive for covid today, despite being covid neg X 2 on admission. He is now on precautions and receiving covid treatment. He has been up independently in his room. He c/o sob on exertion, no supplemental O2 needed at this time. CM will continue to support patient and his discharge planning needs. A: 66 year old male admitted to [facility] on 08/08/21 for Pneumonia, COPD exacerbation P: Anticipate Yair will return home when medically ready per MD via private vehicle with family. He will follow up with his PCP and plan of care as prescribed. CM will continue to monitor his need for New home health services and/or new supplemental O2 for home.
[2021-08-11] MEDS: Albuterol/Ipratropium 3 ML UPD VIAL UPD ×3 (10:33→21:47)
[2021-08-11] MEDS: Budesonide/Formoterol 80/4.5 6.9 GM 60 PUFF INH IH ×2 (10:34→20:42)
[2021-08-11 12:11] LABS: C-Reactive Protein 18.09 mg/dL (0.0-0.3)
[2021-08-11 12:24] LABS: D-Dimer 1281 ng/mlFEU (<500)
--- NOTE | 2021-08-11 12:49 | W.PM.PROGNOT ---
Date of Service Date of service: 08/11/21 Time of Service: 12:50 Assessment and Plan Assessment and plan (1) Pneumonia: Status: Acute Assessment and plan: LLL infiltrate that has increased since previous xray of 08/05/21. WBC count normal on admission; then 1.64 with an ANC of 1170 on 08/09. WBC and ANC normal today. He is immunocompromised d/t 3x/year administration of Rituxan for RA. Afebrile. Viral etiology? COVID negative on admission and multiple times recently prior to admission. found she was COVID position with mild URI sxs just after getting her COVID booster. Rocephin and Doxycycline initiated in ED. Continued Ropcephin. Monitor CBC/ANC. Given increased ESCOBAR today and rales, will obtain CT chest to further evaluate pneumonia and r/o pulmonary emboli. See Covid Pneumonia Qualifiers: Laterality: left Pneumonia type: due to unspecified organism (2) COPD (chronic obstructive pulmonary disease): Status: Chronic Assessment and plan: Former smoker Secondary to pneumonia. Cont Symbicort / home med. Scheduled Duonebs. PRN albuterol nebs. IV solumedrol given in ED. Now on dexamethasone; see Covid Pneumonia. For cough, Mucinex and tessalon perls. Add codeine if needed. (3) Rheumatoid arthritis: Status: Acute Assessment and plan: On Rituxan. Last dose was in December of 2020 (4) Pneumonia due to COVID-19 virus: Status: Acute Assessment and plan: Pt had change in breath sounds yesterday; new rales on the right. Also c/o more ESCOBAR than he had experienced during this stay. CT chest showed bilateral ground glass opacities. F/U COVID test was positive. (he had 3 negative PCR tests and 6 negative home antigen tests prior to admission.). His had Covid dxd appx 2 weeks ago so his time to being positive did not coincide with onset of symptoms. Now on dexamethasone and Remdesivir. Not requiring supplemental O2. Subjective Subjective Patient reports: no new complaints, tolerating a regular diet, shortness of breath (with exertion.) and afebrile; denies nausea and vomiting Exam Const General: cooperative, no acute distress and well developed Nutritional Appearance: overweight Orientation: alert and oriented x3 Eyes General: appearance normal, both eyes and all related structures Sclera: sclerae normal Chest Chest: no tenderness Resp Effort & Inspection: normal respiratory effort Auscultation: clear to auscultation bilaterally (Right sided rales heard yesterday not heard now. ) and diminished lung sounds Cardio Rate: regular rate Rhythm: regular rhythm Heart Sounds: S1 normal and S2 normal GI Palpation: soft and nontender Auscultation: normal bowel sounds Skin General skin exam: no rashes or lesions noted Extrem General: no pedal edema and no calf tenderness Psych Appearance: grossly normal Mental Status: mental status grossly normal Speech and Movement: speech and movement normal Affect: normal affect Objective Last Vital Signs Temp 36.6 C 08/11/21 07:54 Pulse 67 08/11/21 10:33 Resp 18 08/11/21 10:33 BP 113/69 08/11/21 07:54 Pulse Ox 93 08/11/21 10:33 Laboratory Results - last 24 hr 08/10/21 08/11/21 08/11/21 20:05 07:45 07:45 WBC 5.72 RBC 4.86 Hgb 14.3 Hct 42.3 MCV 87.0 MCH 29.4 MCHC 33.8 RDW 12.4 Plt Count 291 MPV 10.2 Immature Gran % 1.2 Neutrophils % 95.0 Lymphocytes % 1.9 Monocytes % 1.9 Eosinophils % 0.0 Basophils % 0.0 Nucleated RBC % 0 Absolute Neutrophils 5.43 Absolute Lymphocytes 0.11 L Absolute Monocytes 0.11 Absolute Eosinophils 0.00 Absolute Basophils 0.00 D-Dimer Sodium 141 Potassium 4.3 Chloride 105 Carbon Dioxide 26.4 Anion Gap 9.6 BUN 14 Creatinine 1.0 Estimated GFR/1.73 m2 >= 60.00 Glucose 119 H Calcium 9.0 Total Bilirubin 0.5 AST 57 H ALT 50 Alkaline Phosphatase 124 H C-Reactive Protein Total Protein 6.1 L Albumin 2.3 L COVID-19 Source NASOPHARYX SARS-CoV-2 (PCR) POSITIVE A* 08/11/21 08/11/21 11:40 11:40 WBC RBC Hgb Hct MCV MCH MCHC RDW Plt Count MPV Immature Gran % Neutrophils % Lymphocytes % Monocytes % Eosinophils % Basophils % Nucleated RBC % Absolute Neutrophils Absolute Lymphocytes Absolute Monocytes Absolute Eosinophils Absolute Basophils D-Dimer 1281 H Sodium Potassium Chloride Carbon Dioxide Anion Gap BUN Creatinine Estimated GFR/1.73 m2 Glucose Calcium Total Bilirubin AST ALT Alkaline Phosphatase C-Reactive Protein 18.09 H Total Protein Albumin COVID-19 Source SARS-CoV-2 (PCR) PAWSS Have you Been Recently Intoxicated or Drunk Within the Last 30 days?: No Have you Ever Experienced Previous Episodes of Alcohol Withdrawal?: No Have you ever Experienced Withdrawal Seizures?: No Have you ever Experienced Delirium Tremens(DT)s?: No Have you ever undergone Alcohol Rehabilitation Treatment (i.e, inpt ot outpatient treatment programs)?: No Have you ever Experienced Blackouts?: No Have you ever Combined Alcohol with other Downers within the last 90 days?: No Have you ever Combined Alcohol with any other Substance of Abuse during the last 90 days?: No Result: 0
[2021-08-11] MEDS: Normal Saline Flush 10 ML SYR IVP ×3 (13:53→23:28)
[2021-08-11] MEDS: cefTRIAXone 1 GM/50 ML BAG IVPB (13:53)
[2021-08-11] MEDS: Melatonin 3 MG TAB 9 MG PO (21:49)
--- NOTE | 2021-08-11 21:56 | NUR.NOTE ---
CC informed this engineering writer that provider asked for O2 documentation via ear probe for each interaction with patient. Initially patient and this engineering writer request for discontinue of O2 monitor
[2021-08-12] VITALS (7 sets, daily range): BP systolic 107–135; BP diastolic 70–84; PULSE 61–72; RESP 2–19; TEMP 36.2–37; O2SAT 93–97
[2021-08-12 08:07] LABS: C-Reactive Protein 14.57 mg/dL (0.0-0.3)
[2021-08-12] MEDS: Dexamethasone 4 MG TAB PO (08:23)
[2021-08-12] MEDS: predniSONE 20 MG TAB 40 MG PO (08:23)
[2021-08-12] MEDS: guaiFENesin 600 MG TABCR PO ×2 (08:23→21:07)
[2021-08-12] MEDS: Lisinopril 5 MG TAB PO (08:23)
[2021-08-12] MEDS: Naproxen 500 MG TAB PO ×2 (08:23→21:07)
[2021-08-12] MEDS: Benzonatate 100 MG CAP PO ×3 (08:23→21:06)
[2021-08-12] MEDS: Omeprazole 20 MG CAPCR PO (08:23)
[2021-08-12] MEDS: Albuterol/Ipratropium 3 ML UPD VIAL UPD (08:24)
[2021-08-12] MEDS: Budesonide/Formoterol 80/4.5 6.9 GM 60 PUFF INH IH ×2 (08:26→21:08)
[2021-08-12 08:35] LABS: D-Dimer 1660 ng/mlFEU (<500)
[2021-08-12] MEDS: Heparin 5,000 UNITS/ML VIAL 5000 UNITS SC ×2 (08:37→21:07)
--- NOTE | 2021-08-12 10:45 | CMPROGNOTE_ITS ---
- If Service Date Differs Date of service: 08/12/21 Time of Service: 10:45 Care Management Progress Note S/O: Yair is being closely monitored and treated for covid. He is experiencing sob with exertion and during coughing spells. His O2 sats range 93- 97% on room air. He has no needs at this time. CM will continue to follow. A: 66 year old male admitted to [facility] on 08/08/21 for Pneumonia, COPD exacerbation P: Anticipate Yair will return home when medically ready per MD via private v icle with family. He will follow up with his PCP and plan of care as prescribed. CM will continue to monitor his need for New home health services and/or new supplemental O2 for home.
--- NOTE | 2021-08-12 13:49 | W.PM.PROGNOT ---
Date of Service Date of service: 08/12/21 Time of Service: 13:49 Assessment and Plan Assessment and plan (1) Pneumonia: Status: Acute Assessment and plan: LLL infiltrate that has increased since previous xray of 08/05/21. WBC count normal on admission; then 1.64 with an ANC of 1170 on 08/09. WBC and ANC normal today. He is immunocompromised d/t 3x/year administration of Rituxan for RA. Afebrile. Viral etiology? COVID negative on admission and multiple times recently prior to admission. found she was COVID position with mild URI sxs just after getting her COVID booster. Rocephin and Doxycycline initiated in ED. Continued Ropcephin. Monitor CBC/ANC. See Covid Pneumonia Qualifiers: Pneumonia type: due to unspecified organism Laterality: left (2) COPD (chronic obstructive pulmonary disease): Status: Chronic Assessment and plan: Former smoker Secondary to pneumonia. Cont Symbicort / home med. Scheduled Duonebs. PRN albuterol nebs. IV solumedrol given in ED. Now on dexamethasone; see Covid Pneumonia. For cough, Mucinex and tessalon perls. Add codeine if needed. (3) Rheumatoid arthritis: Status: Acute Assessment and plan: On Rituxan. Last dose was in December of 2020 (4) Pneumonia due to COVID-19 virus: Status: Acute Assessment and plan: Pt had change in breath sounds yesterday; new rales on the right. Also c/o more ESCOBAR than he had experienced during this stay. CT chest showed bilateral ground glass opacities. F/U COVID test was positive. (he had 3 negative PCR tests and 6 negative home antigen tests prior to admission.). His had Covid dxd appx 2 weeks ago so his time to being positive did not coincide with onset of symptoms. Now on dexamethasone and Remdesivir. Not requiring supplemental O2. Subjective Subjective Patient reports: tolerating a regular diet and shortness of breath (With ambulating to bathroom and back. Takes appx 30 secs to resolved. Also SOB with coughing paroxysms. ); denies diarrhea, nausea and vomiting Interval history since last seen: ROB last PM that resolved. No bodyaches. No loss of sense of taste. Exam Const General: cooperative, no acute distress and well developed Nutritional Appearance: overweight Orientation: alert and oriented x3 Eyes General: appearance normal, both eyes and all related structures Sclera: sclerae normal Chest Chest: no tenderness Resp Effort & Inspection: normal respiratory effort Auscultation: clear to auscultation bilaterally (Right sided faint single expiratory wheeze.) and diminished lung sounds Cardio Rate: regular rate Rhythm: regular rhythm Heart Sounds: S1 normal and S2 normal GI Palpation: soft and nontender Auscultation: normal bowel sounds Skin General skin exam: no rashes or lesions noted Extrem General: no pedal edema and no calf tenderness Psych Appearance: grossly normal Mental Status: mental status grossly normal Speech and Movement: speech and movement normal Affect: normal affect Objective Last Vital Signs Temp 36.2 C L 08/12/21 12:00 Pulse 72 08/12/21 12:00 Resp 16 08/12/21 12:00 BP 126/78 08/12/21 12:00 Pulse Ox 97 08/12/21 12:00 Laboratory Results - last 24 hr 08/12/21 08/12/21 07:15 07:15 D-Dimer 1660 H C-Reactive Protein 14.57 H PAWSS Have you Been Recently Intoxicated or Drunk Within the Last 30 days?: No Have you Ever Experienced Previous Episodes of Alcohol Withdrawal?: No Have you ever Experienced Withdrawal Seizures?: No Have you ever Experienced Delirium Tremens(DT)s?: No Have you ever undergone Alcohol Rehabilitation Treatment (i.e, inpt ot outpatient treatment programs)?: No Have you ever Experienced Blackouts?: No Have you ever Combined Alcohol with other Downers within the last 90 days?: No Have you ever Combined Alcohol with any other Substance of Abuse during the last 90 days?: No Result: 0
[2021-08-12] MEDS: Normal Saline Flush 10 ML SYR IVP ×2 (14:01→21:10)
[2021-08-12] MEDS: cefTRIAXone 1 GM/50 ML BAG IVPB (14:02)
[2021-08-12] MEDS: Acetaminophen 325 MG TAB 650 MG PO (21:07)
[2021-08-12] MEDS: Melatonin 3 MG TAB 9 MG PO (22:28)
[2021-08-13] VITALS (8 sets, daily range): BP systolic 111–132; BP diastolic 68–85; PULSE 60–65; RESP 16–20; TEMP 36.1–37; O2SAT 90–94
[2021-08-13 06:55] LABS: HCT 40.4 % (40.0-50.0); HGB 13.7 g/dL (13.5-17.5); MCH 29.6 pg (27.0-33.0); MCHC 33.9 % (32.0-36.0); MCV 87.3 fL (80-95); MPV 10.6 fL (8.0-11.0); Platelet Count 290 10^3/uL (130-400); RBC 4.63 10^6/uL (4.36-5.78); RDW 12.9 % (11.8-14.1); RDW-SD 41.1 fL; WBC 5.07 10^3/uL (4.4-10.8)
[2021-08-13 07:02] LABS: C-Reactive Protein 9.04 mg/dL (0.0-0.3)
[2021-08-13 07:34] LABS: D-Dimer 1068 ng/mlFEU (<500)
[2021-08-13] MEDS: Omeprazole 20 MG CAPCR PO (08:05)
[2021-08-13] MEDS: Dexamethasone 4 MG TAB PO (08:05)
[2021-08-13] MEDS: Lisinopril 5 MG TAB PO (08:05)
[2021-08-13] MEDS: Benzonatate 100 MG CAP PO ×3 (08:05→20:38)
[2021-08-13] MEDS: guaiFENesin 600 MG TABCR PO ×2 (08:05→20:37)
[2021-08-13] MEDS: Naproxen 500 MG TAB PO ×2 (08:05→20:37)
[2021-08-13] MEDS: predniSONE 20 MG TAB 40 MG PO (08:05)
--- NOTE | 2021-08-13 08:24 | PDOC.CMPRO ---
- If Service Date Differs Date of service: 08/13/21 Time of Service: 08:24 Care Management Progress Note S/O: Yair is being treated for covid. He is experiencing sob with exertion and during coughing spells. His O2 sats are 92-94% on room air. He is up independently in his room and able to ambulate with rest periods. Per provider he will likely discharge tomorrow after his infusion. A: 66 year old male admitted to [facility] on 08/08/21 for Pneumonia, COPD exacerbation P: Anticipate Yair will return home with no new services, when medically ready per MD. He will transport via private vehicle with family and follow up with his PCP and discharge plan of care as prescribed. CM will continue to support discharge planning needs.
[2021-08-13] MEDS: Heparin 5,000 UNITS/ML VIAL 5000 UNITS SC (08:49)
[2021-08-13] MEDS: Budesonide/Formoterol 80/4.5 6.9 GM 60 PUFF INH IH (09:59)
[2021-08-13] MEDS: Ipratropium/Albuterol 4 GM 120 PUFF INH IH ×2 (09:59→20:38)
[2021-08-13] MEDS: cefTRIAXone 1 GM/50 ML BAG IVPB (14:06)
[2021-08-13] MEDS: Normal Saline Flush 10 ML SYR IVP (14:07)
--- NOTE | 2021-08-13 16:15 | W.PM.PROGNOT ---
Date of Service Date of service: 08/13/21 Time of Service: 16:15 Assessment and Plan Assessment and plan (1) COPD (chronic obstructive pulmonary disease): Status: Chronic Assessment and plan: Former smoker Secondary to pneumonia. Cont Symbicort / home med. Scheduled Duonebs. PRN albuterol nebs. IV solumedrol given in ED. Now on dexamethasone; see Covid Pneumonia. For cough, Mucinex and tessalon perls. Add codeine if needed. (2) Rheumatoid arthritis: Status: Acute Assessment and plan: On Rituxan. Last dose was in December of 2020 (3) Pneumonia due to COVID-19 virus: Status: Acute Assessment and plan: Pt had change in breath sounds yesterday; new rales on the right. Also c/o more ESCOBAR than he had experienced during this stay. CT chest showed bilateral ground glass opacities. F/U COVID test was positive. (he had 3 negative PCR tests and 6 negative home antigen tests prior to admission.). His had Covid dxd appx 2 weeks ago so his time to being positive did not coincide with onset of symptoms. Now on dexamethasone and Remdesivir. Not requiring supplemental O2. Improving. Planning on D/C in AM on prednisone taper. Subjective Subjective Patient reports: tolerating a regular diet, shortness of breath (Improved. Able to be more active for longer periods of time today. ) and afebrile; denies nausea and vomiting Interval history since last seen: Has been having a ROB / neck and both temples nightly during and prior to hospitalization. Always around 9PM. Tylenol resolves it readily. Exam Const General: cooperative, no acute distress and well developed Nutritional Appearance: overweight Orientation: alert and oriented x3 Eyes General: appearance normal, both eyes and all related structures Sclera: sclerae normal Chest Chest: no tenderness Resp Effort & Inspection: normal respiratory effort Auscultation: rhonchi (Soft, right sided. ) and other (Improved overall air movement. ) Cardio Rate: regular rate Rhythm: regular rhythm Heart Sounds: S1 normal and S2 normal GI Palpation: soft and nontender Auscultation: normal bowel sounds Skin General skin exam: no rashes or lesions noted Extrem General: no pedal edema and no calf tenderness Psych Appearance: grossly normal Mental Status: mental status grossly normal Speech and Movement: speech and movement normal Affect: normal affect Objective Last Vital Signs Temp 36.2 C L 08/13/21 11:55 Pulse 64 08/13/21 11:55 Resp 16 08/13/21 11:55 BP 132/81 08/13/21 11:55 Pulse Ox 94 08/13/21 11:55 Laboratory Results - last 24 hr 08/13/21 08/13/21 08/13/21 06:27 06:27 06:27 WBC 5.07 RBC 4.63 Hgb 13.7 Hct 40.4 MCV 87.3 MCH 29.6 MCHC 33.9 RDW 12.9 Plt Count 290 MPV 10.6 D-Dimer 1068 H C-Reactive Protein 9.04 H PAWSS Have you Been Recently Intoxicated or Drunk Within the Last 30 days?: No Have you Ever Experienced Previous Episodes of Alcohol Withdrawal?: No Have you ever Experienced Withdrawal Seizures?: No Have you ever Experienced Delirium Tremens(DT)s?: No Have you ever undergone Alcohol Rehabilitation Treatment (i.e, inpt ot outpatient treatment programs)?: No Have you ever Experienced Blackouts?: No Have you ever Combined Alcohol with other Downers within the last 90 days?: No Have you ever Combined Alcohol with any other Substance of Abuse during the last 90 days?: No Result: 0
[2021-08-13] MEDS: Acetaminophen 325 MG TAB 650 MG PO (20:37)
[2021-08-13] MEDS: Melatonin 3 MG TAB 9 MG PO (22:41)
[2021-08-14 03:30] VITALS: BP 128/70; PULSE 60; RESP 20; TEMP 36.6; O2SAT 91
[2021-08-14 06:59] LABS: HCT 39.5 % (40.0-50.0); HGB 13.3 g/dL (13.5-17.5); MCH 29.1 pg (27.0-33.0); MCHC 33.7 % (32.0-36.0); MCV 86.4 fL (80-95); MPV 10.5 fL (8.0-11.0); Platelet Count 337 10^3/uL (130-400); RBC 4.57 10^6/uL (4.36-5.78); RDW 12.7 % (11.8-14.1); RDW-SD 40.2 fL; WBC 6.36 10^3/uL (4.4-10.8)
[2021-08-14 07:17] LABS: C-Reactive Protein 5.09 mg/dL (0.0-0.3)
[2021-08-14 07:32] LABS: D-Dimer 833 ng/mlFEU (<500)
[2021-08-14] MEDS: Omeprazole 20 MG CAPCR PO (08:56)
[2021-08-14] MEDS: guaiFENesin 600 MG TABCR PO (08:56)
[2021-08-14] MEDS: Naproxen 500 MG TAB PO (08:56)
[2021-08-14] MEDS: predniSONE 20 MG TAB 40 MG PO (08:56)
[2021-08-14] MEDS: Acetaminophen 325 MG TAB 650 MG PO (08:57)
[2021-08-14] MEDS: Dexamethasone 4 MG TAB PO (08:57)
[2021-08-14] MEDS: Benzonatate 100 MG CAP PO (08:57)
[2021-08-14] MEDS: Ipratropium/Albuterol 4 GM 120 PUFF INH IH (08:57)
[2021-08-14] MEDS: Lisinopril 5 MG TAB PO (08:57)
[2021-08-14] MEDS: Budesonide/Formoterol 80/4.5 6.9 GM 60 PUFF INH IH (08:58)
[2021-08-14 09:03] VITALS: BP 122/86; PULSE 60; RESP 20; O2SAT 90
--- NOTE | 2021-08-14 09:30 | W.PM.DS.N ---
Date of service: 08/14/21 Time of Service: 09:30 DS: Diagnosis Discharge Diagnosis (1) COPD (chronic obstructive pulmonary disease): Status: Chronic (2) Rheumatoid arthritis: Status: Acute (3) Pneumonia due to COVID-19 virus: Status: Acute Discharge Plan Disposition Patient Disposition: HOME Condition: Improving Discharge Details Reason For Visit: Pneumonia, COPD Exacerbation Admit Date/Time: 08/08/21 15:03 Admit Provider: Dimas Cox Attending Provider: Dimas Cox Primary Care Provider: Heath Anderson Hospital Course Hospital Course: his is a 66 yo male that has a PMH of COPD and RA. He presented to the ED with c/o cough, shortness of breath, feeling hot/cold, for 10+ days. The cough is occasionally productive but he feels there is phlegm that he can't expectorate. He notes hearing wheezes. No CP/palpitations. He was evaluated as an outpt and initially txd with azithromycin for 5 days and prednisone. He was then given augmentin that he has taken TID for 2 1/2 days. He was COVID negative as an outpt. CXR showed a possibly developing LLL infiltrate. In the ED he was afebrile. RA oxygen saturation of 90-91%. WBC count normals. Rhonchi were noted. He was given a nebulized albuterol treatment with some noted improvement. Covid and influenza testing were negative. CXR showed increased LLL infiltrate. Admitted for further treatment given failure of outpt tx. Rocephin initiated. He continued to have what he described as a significant, mostly nonproductive, cough. On the 3rd day of admission his left lung summers were noted to have rales that were not previously present. He also stated he felt more short of air with activity in his room. A CT chest was obtained that showed bilateral scattered ground glass opacities. A repeat COVID test was positive. He had 3 previous negative PCR tests and 6 negative home antigen tests prior to admission. His had Covid dxd appx 2 weeks ago so his time to being positive did not coincide with onset of symptoms. He was placed on dexamethasone and Remdesivir. At no time did he require supplemental O2. He had no fevers. No loss of taste sensation. There was some improvement in his cough and intermittent improvement in the amount of shortness of breath he experienced with activity. He will d/c on a prednisone taper and continue Mucinex. He does not have a Rituxan infusion scheduled and will speak with his nurse chemical dependency regarding when to proceed with any further infusions. Follow up with PCP next week. Patient to schedule follow up with Rheumatology at [facility] [place]. Home Meds and New Rx's Prescriptions: New guaifenesin [Mucinex] 600 mg Tablet Extended Release 12hr 600 mg PO BID Qty: 0 RF: 0 prednisone 10 mg tablet See Rx Instructions .ROUTE .COMPLEX Qty: 20 RF: 0 Continued naproxen sodium 550 MG tablet 2 tab PO DAILY RF: 0 omeprazole 20 MG capsule,delayed release(DR/EC) 20 mg PO DAILY RF: 0 albuterol sulfate 8.5 GM HFA aerosol inhaler 2 puff Inhalation PRN PRNRF: 0 budesonide-formoterol [Symbicort] 60 PUFF HFA aerosol inhaler 2 puff Inhalation BID RF: 0 lisinopril 5 MG tablet 5 mg PO DAILY RF: 0 Discontinued Rituxan 500 MG/50 ML concentrate DIRECTED RF: 0 amoxicillin-pot clavulanate 1 TAB tablet 1 ea PO BID Qty: 20 RF: 0 Discharge Instructions Instructions: COVID-19 (Coronavirus Disease 2019) (DC) Stand Alone Forms: Nursing Discharge Form Referrals: Heath Anderson [Primary Care Provider] - (Please call to make a follow up appointment) Activity:: Activity as Tolerated Equipment/Supplies:: No Equipment Needed Diet:: As Tolerated Discharge Orders Discharge Orders: Discharge Order (Routine); Ordered 08/14/21 Ordered By: Dimas Cox Discharge Data Discharge Date/Time-TO BE ENTERED AT DEPARTURE: 08/14/21 11:51 DS: Summary Time Spent with Patient providing and/or coordinating discharge services: Greater than 30 minutes Status at Discharge Functional status at discharge: independent ambulation Overall status at discharge: patient is progressing back to baseline Mental Status: mental status grossly normal Speech and Movement: speech and movement normal Mood: congruent mood Affect: normal affect Exam Const General: cooperative, no acute distress and well developed Nutritional Appearance: overweight Orientation: alert and oriented x3 Eyes General: appearance normal, both eyes and all related structures Sclera: sclerae normal Chest Chest: no tenderness Resp Effort & Inspection: normal respiratory effort Auscultation: rhonchi (Soft, right sided. ) and other (Improved overall air movement. ) Cardio Rate: regular rate Rhythm: regular rhythm Heart Sounds: S1 normal and S2 normal GI Palpation: soft and nontender Auscultation: normal bowel sounds Skin General skin exam: no rashes or lesions noted Extrem General: no pedal edema and no calf tenderness Psych Appearance: grossly normal Mental Status: mental status grossly normal Speech and Movement: speech and movement normal Mood: congruent mood Affect: normal affect DS: Data Vitals/I&O Vitals and I&O: Vital Signs Temperature 36.6 C 08/14/21 03:30 Temperature Source Tympanic 08/14/21 03:30 Pulse 60 08/14/21 09:03 Pulse Rhythm Regular 08/14/21 05:54 Respiratory Rate 20 08/14/21 09:03 Respiratory Effort Non-Labored 08/14/21 05:54 Respiratory Depth Normal 08/14/21 05:54 Respiratory Pattern Normal 08/14/21 05:54 Blood Pressure 122/86 08/14/21 09:03 Blood Pressure Position Sitting 08/08/21 13:18 Pulse Oximetry 90 L 08/14/21 09:03 Oxygen Delivery Method Room Air 08/14/21 09:03 Oxygen Flow Rate 0 08/14/21 09:03 Pain Level 0 08/14/21 09:03 Comment 08/14/21 03:30 Intake & Output 08/13/21 08/13/21 08/14/21 11:59 23:59 11:59 Intake Total 550 / 1050 500 / 1050 Balance 550 / 1050 500 / 1050 Intake: Oral 550 / 1050 500 / 1050 Other: Urine Color Yellow Urine Appearance Clear Clear Clear Urine Odor None Comment pt is voiding independently in toilet. pt is up voiding independently in room. Stool Characteristics Formed Voiding Methods Toilet Data Completed and Pending Labs on day of discharge: Labs from last 24 hours 08/14/21 08/14/21 08/14/21 06:15 06:15 06:15 WBC 6.36 RBC 4.57 Hgb 13.3 L Hct 39.5 L MCV 86.4 MCH 29.1 MCHC 33.7 RDW 12.7 Plt Count 337 MPV 10.5 D-Dimer 833 H C-Reactive Protein 5.09 H PFSH All Active Problems Pneumonia due to COVID-19 virus (Acute) Rheumatoid arthritis (Acute) Pneumonia (Acute) COPD (chronic obstructive pulmonary disease) (Chronic) Social History Smoking/Tobacco Use Status: Former Tobacco Use Smoking risk assessment performed?: Yes Alcohol Intake: current Drug use: Never Substance use type: does not use Do you feel safe at home: Yes Do you feel safe in your relationship?: Yes
--- NOTE | 2021-08-14 17:10 | PDOC.CMDIS ---
- If Service Date Differs Date of service: 08/14/21 Time of Service: 17:10 LACE Index Scoring Tool - Questions: Length of Stay (in days): 4 - 6 Acuity (Admit via E.D.?): Yes Comorbidities: Chronic Pulmonary Disease E.D. Visits: 1 - Answers: Total Score: 10 Risk of Readmission: High Risk Care Management Discharge Reason for Hospitalization: Pneumonia, COPD Exacerbation Discharge Plan: Yair will return home with no new services, when medically ready per MD. He will transport via private vehicle with family and follow up with his PCP and discharge plan of care as prescribed. Patient/Family Education Needs: Review discharge instructions, discuss Ask Me Three.
== END 2021-08-14 11:51 | disposition home or self-care (01) | DRG 177 ==
LOC: ER 14:57 → MS 16:17
PROVIDERS: General Practice; Admitting Provider Family Medicine; Emergency Provider Emergency Medicine; PCP Family Medicine; Visit Provider Family Medicine
DX: U07.1 COVID-19 (principal); J12.82 Pneumonia due to coronavirus disease 2019; J44.0 Chronic obstructive pulmonary disease with (acute) lower respiratory infection; D84.821 Immunodeficiency due to drugs; Z87.891 Personal history of nicotine dependence; M06.9 Rheumatoid arthritis, unspecified; Z20.822 Contact with and (suspected) exposure to COVID-19; Z79.899 Other long term (current) drug therapy
CPT/HCPCS: 36415; 71275; 80053; 85027; 87635; 94640; 96365; 96367; 99285; 71045; 83735; 85025; 85379; 86140; 99223; 99232; 99233; 99239; 99284; J0696; J1100; J1644; J2930; J3490; J7512; J7620; J8540

== ENCOUNTER 2021-08-18 13:39 | Inpatient (IN) | payer MEDICARE, SELFPAY ==
[2021-08-18] VITALS (41 sets, daily range): BP systolic 103–124; BP diastolic 62–95; PULSE 70–86; RESP 18–40; TEMP 36.7–37.3; O2SAT 6–94
--- NOTE | 2021-08-18 | DI.CT_ITS ---
Exam(s) CT CHEST PE CTA EXAM: CT CHEST PE CTA CLINICAL HISTORY: hypoxia, covid,. TECHNIQUE: Imaging Protocol: Axial CT angiography was performed with multi-slice acquisition and mu lti-planar and/or 3D reconstructions. CONTRAST MATERIAL: Intravenous: Omnipaque 350 Contrast volume:100 mL COMPARISON: CT CT CHEST PE CTA from 08/10/[address] CHEST PE CTA from 08/10/2021 FINDINGS: Tracheobronchial tree: Patent where visualized. Pulmonary parenchyma: There is a worsening in the ground-glass bilateral opacities since the prior ex amination from 08/10/2021. No architectural distortion. There is a 1.4 cm opacity in the right lung b ase. Pulmonary Arteries: No evidence of filling defect to suggest pulmonary emboli. Mediastinum and Kimmy: Enlarged mediastinal lymph nodes are present. There has been some decrease in size of the mediastinal lymph nodes. The enlarged AP window lymph node now measures 1.8 x 1.4 cm. T his compares to a 2.6 x 2.0 cm. The esophagus is unremarkable. Visualized thyroid gland: Unremarkable. Pleura: The left pleural effusion shows mild increase in size but remains small. The right pleural e ffusion likewise is small but has increased in size compared to the prior examination. No pneumothor ax. Heart: The heart is not dilated. No coronary artery calcifications are seen. No pericardial effusion. Aorta: Thoracic aorta non-dilated. No evidence of dissection. Mild atherosclerosis. Upper abdomen: Status post cholecystectomy. Soft tissues: Unremarkable. Bones: Within normal limits for the patient's age. IMPRESSION: 1. No evidence of pulmonary embolism, thoracic aortic dissection or aneurysm. 2. Interval worsening of the bilateral ground-glass opacities consistent with worsening pneumonia. 3. Slight increase in size of the small bilateral pleural effusions. 4. 1.4 cm nodular opacity in the right lower lobe. This may be focal area of pneumonia or atelectasi s. Neoplastic process cannot be excluded. A follow-up CT scan in 2-3 months is recommended for re-e valuation. RADIATION DOSE DELIVERED: 403.6mGy.cm Total DLP DATA REPOSITORY: All CT scans at this facility are submitted to the National Radiology Data Registry (NRDR) Dose Index Registry (DIR) with the [employer] ([employer]). RADIATION OPTIMIZATION: All CT scans at this facility use at least one of these dose optimization te chniques: automated exposure control; mA and/or kV adjustment per patient size (includes targeted exa ms where dose is matched to clinical indication); or iterative reconstruction.
--- NOTE | 2021-08-18 14:00 | DI.RAD_ITS ---
Exam(s) XR PORTABLE CHEST AP EXAM: XR PORTABLE CHEST AP CLINICAL HISTORY: hypoxia TECHNIQUE: 2D digital imaging was performed of the chest. One image was obtained. An AP view was ob tained. COMPARISON: CR,XR XR PORTABLE CHEST AP from 08/08/2021 FINDINGS: MEDIASTINUM: Normal. HEART: Normal. PULMONARY VASCULATURE: Normal. LUNGS: Progression of the multifocal infiltrates since 08/08/2021. PLEURAL SPACE: No pleural effusion or pneumothorax. BONE:Within normal limits for the patient's age. OTHER FINDINGS:Normal. IMPRESSION: Worsening pneumonia since 08/08/2021. DATA REPOSITORY: RADIATION DOSE DELIVERED:
--- NOTE | 2021-08-18 14:00 | RT.EKG_ITS ---
APPROVED REPORT Exam: Resting ECG Reason for Exam: shortness of breath Patient Location: E HR:73 bpm ECG Measurements Heart Rate 73 AXIS WY 137 P 13 QRSd 87 QRS 21 QT 366 T 72 QTc 405 Conclusion Sinus rhythm...normal P axis, V-rate 60- 99
--- NOTE | 2021-08-18 14:10 | ED.GENADUL_ITS ---
Discharge Plan Disposition Patient Disposition: [facility] INPATIENT Condition: Stable Discharge Details Clinical Impression: Pneumonia due to COVID-19 virus, Hypoxia Primary Care Provider: Heath Anderson ED Provider: Chandan Wilks Home Meds and New Rx's Prescriptions: No Action naproxen sodium 550 MG tablet 2 tab PO DAILY RF: 0 omeprazole 20 MG capsule,delayed release(DR/EC) 20 mg PO DAILY RF: 0 albuterol sulfate 8.5 GM HFA aerosol inhaler 2 puff Inhalation PRN PRNRF: 0 budesonide-formoterol [Symbicort] 60 PUFF HFA aerosol inhaler 2 puff Inhalation BID RF: 0 lisinopril 5 MG tablet 5 mg PO DAILY RF: 0 guaifenesin [Mucinex] 600 mg Tablet Extended Release 12hr 600 mg PO BID Qty: 0 RF: 0 prednisone 10 mg tablet See Rx Instructions .ROUTE .COMPLEX Qty: 20 RF: 0 Medical Decision Making 66 yo male with hx of rheumatoid arthritis, copd, who has had two vaccines and a booster for covid, comes in with hypoxia. HE was admitted last week and discharged on the after being admitted for covid and had remdesivir and steroids. He states he went home and has continued to check his oxygen levels and has been in the 70's so came here again. He denies any chest pain, chest pressure, fevers, chills. He has no leg swelling or calf tenderness. He is hypoxic in the 70's but on just 3L [place] increases to 93%. I suspect he has c ontinued hypoxia from covid, had a negative cta less than a week ago that was negative for PE. Will obtain labs, ecg and portable chest and reassess, will likely need admission xray shows worsening infiltrates, mild increase in wbc to 12 but is on prednisone so could be from this. Given he is still requiring o2 discussed with hospitalist who accepts for admission Differential Diagnosis Differential Diagnosis: covid, copd, pneumonia Medical Records Medical records reviewed: Yes I reviewed the patient's medical records. Imaging Data Radiologic Study: Attestation: I personally reviewed and interpreted this imaging study as follows: Imaging: X-Ray Radiologist's impression: IMPRESSION: Worsening pneumonia since 08/08/2021. Lab Data Lab results reviewed: Yes I reviewed the patient's lab results. ECG Data Attestation: I personally reviewed and interpreted this ECG (s) as follows: Prior ECG tracings: available for review Interpretation: sinus rhythm, rate of 70, no acute st t wave ischemic findings HPI General Mode of arrival: ambulatory . Date/Time Provider Initiated Documentation: 08/18/21 13:48 . Limitations to Documentation: no limitations . Information obtained by: patient . History of Present Illness 66 year old M presents to the emergency department with the chief complaint of low oxygen saturations, described as moderate, Patient reports no radiation. Patient started experiencing this day(s) (2) and it has been constant. No relieving factors improve symptom(s), No exacerbating factors reported . Patient notes denies chest pain and fever/chills. Patient did receive the following treatments prior to arrival, none Related Data Home Medications Medication Instructions Recorded Confirmed albuterol sulfate 2 puff INHALATION PRN PRN 05/26/15 08/18/21 budesonide-formoterol [Symbicort] 2 puff INHALATION BID 05/26/15 08/18/21 naproxen sodium 2 tab PO DAILY 05/26/15 08/18/21 omeprazole 20 mg PO DAILY 05/26/15 08/18/21 lisinopril 5 mg PO DAILY 08/05/15 08/18/21 guaifenesin [Mucinex] 600 mg PO BID #0 tab 08/14/21 08/18/21 prednisone See Rx Instructions .ROUTE 08/14/21 08/18/21 .COMPLEX #20 tab Previous Rx's Medication Instructions Recorded guaifenesin [Mucinex] 600 mg PO BID #0 tab 08/14/21 prednisone See Rx Instructions .ROUTE 08/14/21 .COMPLEX #20 tab Allergies Allergy/AdvReac Type Severity Reaction Status Date / Time celecoxib [From Celebrex] AdvReac Nausea Unverified 08/18/21 13:54 General Stated Complaint: SOB MADELEINE: 2 Review of Systems All systems reviewed & are unremarkable except as noted in HPI and below Constitutional Constitutional: Denies chills, Denies fever(s) and Denies weakness Cardiovascular Cardiovascular: Denies chest pain Respiratory Respiratory: Denies cough Gastrointestinal Gastrointestinal: Denies abdominal pain, Denies nausea and Denies vomiting Musculoskeletal Musculoskeletal: Denies joint swelling Neurologic Neurologic: Denies weakness PFSH All Active Problems (Updated 08/18/21 @ 15:14 by Chandan Wilks MD) Hypoxia (Acute) Pneumonia due to COVID-19 virus (Acute) Rheumatoid arthritis (Acute) Pneumonia (Acute) COPD (chronic obstructive pulmonary disease) (Chronic) Social History Smoking/Tobacco Use Status: Former Tobacco Use Smoking risk assessment performed?: Yes Alcohol Intake: current Alcohol Intake frequency: holidays/special occasions only Drug use: Never Substance use type: does not use Do you feel safe at home: Yes Do you feel safe in your relationship?: Yes Exam Const General: no acute distress Orientation: alert HENMT Head: normal to inspection Ears: external ears normal General nose exam: external nose normal Mouth: moist mucous membranes Eyes General: appearance normal, both eyes and all related structures Neck Neck: normal visual inspection Resp Effort & Inspection: normal respiratory effort and able to speak in complete sentences Cardio Rate: regular rate Skin General skin exam: no rashes or lesions noted Neuro General: patient alert and patient oriented x3 Extrem General: normal to inspection Psych Mental Status: mental status grossly normal Course Vital Signs Vital signs: Vital Signs Temperature 37.3 C 08/18/21 13:49 Pulse 73 08/18/21 13:49 Respiratory Rate 30 H 08/18/21 13:49 Blood Pressure 123/95 H 08/18/21 13:49 Pulse Oximetry 75 L 08/18/21 13:49 Temperature 37.3 C 08/18/21 13:49 Temperature Source Temporal Artery Scan 08/18/21 13:49 Pulse 73 08/18/21 13:49 Respiratory Rate 30 H 08/18/21 13:55 Respiratory Effort 08/18/21 13:55 Respiratory Pattern Tachypnea 08/18/21 13:55 Blood Pressure 123/95 H 08/18/21 13:49 Blood Pressure Position Sitting 08/18/21 13:49 Pulse Oximetry 75 L 08/18/21 13:49 Oxygen Delivery Method Room Air 08/18/21 13:49 Oxygen Flow Rate 0 08/18/21 13:49 Pain Level 0 08/18/21 13:49 Lab/Test Results Lab/Test Results: 08/18/21 14:04 Blood Blood Culture - Pending 08/18/21 14:00 Blood Blood Culture - Pending
[2021-08-18 14:11] LABS: BE (Venous) 3 mmol/L (-2-3); HCO3 (Venous) 27 mmol/L (23-28); O2 Sat (Venous) 58 %; TCO2 (Venous) 24 mmol/L (24-29); pCO2 (Venous) 41 mmHg (41-51); pH (Venous) 7.43 (7.31-7.41); pO2 (Venous) 31 mmHg
[2021-08-18 14:21] LABS: Abs Immature Grans 0.41 10^3/uL (0.0-0.06); Absolute Basophil Count 0.03 10^3/uL (0.0-0.2); Absolute Eosinophil Count 0.09 10^3/uL (0.0-0.7); Absolute Monocyte Count 0.47 10^3/uL (0.1-0.8); Basophils % 0.2; Eosinophils % 0.7; HCT 48.7 % (40.0-50.0); HGB 16.2 g/dL (13.5-17.5); Immature Grans % 3.2; MCH 29.6 pg (27.0-33.0); MCHC 33.3 % (32.0-36.0); MCV 88.9 fL (80-95); MPV 10.2 fL (8.0-11.0); Monocytes % 3.7; Neutrophils % 88.2; Nucleated RBC 0 %; Platelet Count 410 10^3/uL (130-400); RBC 5.48 10^6/uL (4.36-5.78); RDW 12.8 % (11.8-14.1); RDW-SD 41.7 fL; WBC 12.62 10^3/uL (4.4-10.8)
[2021-08-18 14:23] LABS: Absolute Neutrophil Count 11.13 10^3/uL (1.2-6.7)
[2021-08-18 14:45] LABS: ALT 88 U/L (16-63); AST 51 U/L (15-37); Albumin 2.6 g/dL (3.4-5.0); Alkaline Phosphatase 161 U/L (46-116); Anion Gap 7.9 mmol/L (3-11); BUN 20 mg/dL (7-18); Bilirubin, Total 1.2 mg/dL (0.2-1.0); CO2 26.1 mmol/L (21.0-32.0); CREATININE 0.9 mg/dL (0.70-1.30); Calcium 8.9 mg/dL (8.5-10.1); Chloride 99 mmol/L (98-107); Glucose 93 mg/dL (74-106); Magnesium 2.3 mg/dL (1.8-2.4); NT-proBNP 112 pg/mL (<300); Potassium 4.4 mmol/L (3.5-5.1); Sodium 133 mmol/L (136-145); Total Protein 6.6 g/dL (6.4-8.2); Troponin I < 50 ng/L (<or=60)
[2021-08-18] MEDS: Dexamethasone 10 MG/ML VIAL IVP (15:09)
[2021-08-18 15:27] LABS: BE 1 mmol/L (-2-3); HCO3 24 mmol/L (22-26); pCO2 31 mmHg (35-45); pH 7.51 (7.35-7.45); pO2 44 mmHg (80-105); sO2 83 % (95-98); tCO2 21 mmol/L (23-27)
[2021-08-18 15:31] LABS: FIO2L 5 L; Site Left Radial
--- NOTE | 2021-08-18 15:39 | W.PM.HP.N ---
Date of service: 08/18/21 Time of Service: 15:39 Assessment and Plan Assessment and plan (1) Pneumonia due to COVID-19 virus: Status: Acute Assessment and plan: admit to med/surg with oxygen as needed, proning and routine covid labs and monitoring decadron, remdesivir and baricitinib awaiting CTA chest to r/o PE (2) Rheumatoid arthritis: Status: Acute (3) COPD (chronic obstructive pulmonary disease): Status: Chronic Assessment and plan: will be on decadron continue home inhalers (4) DVT prophylaxis: Status: Acute Assessment and plan: lovenox (5) Discharge planning issues: Status: Acute Assessment and plan: home when medically stable. discussed with Dr Stephens History of Present Illness History of Present Illness Chief Complaint: shortness of breath Narrative: returns to the ED for evaluation on worsening shortness of breath and hypoxia following a hospitalization for covid pneumonia. work up in the ED demonstrates oxygen requirements with room air sats in the 70-80's. Review of Systems All systems reviewed & are unremarkable except as noted in HPI and below Constitutional Constitutional: Denies fever(s) Cardiovascular Cardiovascular: Denies chest pain Respiratory Respiratory: Denies cough Gastrointestinal Gastrointestinal: Denies abdominal pain, Denies nausea and Denies vomiting PFSH All Active Problems (Updated 08/18/21 @ 15:42 by Mervat Romero NP) Discharge planning issues (Acute) DVT prophylaxis (Acute) Hypoxia (Acute) Pneumonia due to COVID-19 virus (Acute) Rheumatoid arthritis (Acute) Pneumonia (Acute) COPD (chronic obstructive pulmonary disease) (Chronic) Social History Smoking/Tobacco Use Status: Former Tobacco Use Smoking risk assessment performed?: Yes Alcohol Intake: current Alcohol Intake frequency: holidays/special occasions only Drug use: Never Substance use type: does not use Do you feel safe at home: Yes Do you feel safe in your relationship?: Yes Meds Allergies and Home Medications Allergies Allergy/AdvReac Type Severity Reaction Status Date / Time celecoxib [From Celebrex] AdvReac Nausea Unverified 08/18/21 13:54 Home Medications Medication Instructions Recorded Confirmed Type albuterol sulfate 2 puff INHALATION PRN PRN 05/26/15 08/18/21 History budesonide-formoterol [Symbicort] 2 puff INHALATION BID 05/26/15 08/18/21 History naproxen sodium 2 tab PO DAILY 05/26/15 08/18/21 History omeprazole 20 mg PO DAILY 05/26/15 08/18/21 History lisinopril 5 mg PO DAILY 08/05/15 08/18/21 History guaifenesin [Mucinex] 600 mg PO BID #0 tab 08/14/21 08/18/21 Rx prednisone See Rx Instructions .ROUTE 08/14/21 08/18/21 Rx .COMPLEX #20 tab Exam Const Orientation: alert HENMT Head: normal to inspection Mouth: moist mucous membranes Eyes General: appearance normal, both eyes and all related structures Neck Neck: normal visual inspection Resp Effort & Inspection: able to speak in complete sentences Cardio Rate: regular rate Skin General skin exam: no rashes or lesions noted Neuro General: patient alert and patient oriented x3 Extrem General: normal to inspection Psych Mental Status: mental status grossly normal Results Labs Result diagrams: 08/19/21 06:15 08/19/21 06:15 Labs: Laboratory Results - last 24 hr 08/18/21 08/18/21 08/18/21 14:04 14:04 14:04 WBC 12.62 H RBC 5.48 Hgb 16.2 Hct 48.7 MCV 88.9 MCH 29.6 MCHC 33.3 RDW 12.8 Plt Count 410 H MPV 10.2 Immature Gran % 3.2 Neutrophils % 88.2 Lymphocytes % 4.0 Monocytes % 3.7 Eosinophils % 0.7 Basophils % 0.2 Nucleated RBC % 0 Absolute Neutrophils 11.13 H Absolute Lymphocytes 0.50 L Absolute Monocytes 0.47 Absolute Eosinophils 0.09 Absolute Basophils 0.03 ABG Sample Site ABG pH ABG pCO2 ABG pO2 ABG HCO3 ABG Total CO2 ABG O2 Saturation ABG Base Excess VBG pH 7.43 H VBG pCO2 41 VBG pO2 31 VBG HCO3 27 VBG Total CO2 24 VBG O2 Saturation 58 VBG Base Excess 3 Oxygen Liter Flow Sodium 133 L Potassium 4.4 Chloride 99 Carbon Dioxide 26.1 Anion Gap 7.9 BUN 20 H Creatinine 0.9 Estimated GFR/1.73 m2 >= 60.00 Glucose 93 Calcium 8.9 Magnesium 2.3 Total Bilirubin 1.2 H AST 51 H ALT 88 H Alkaline Phosphatase 161 H Troponin I < 50 NT-Pro-B Natriuret Pep 112 Total Protein 6.6 Albumin 2.6 L 08/18/21 15:20 WBC RBC Hgb Hct MCV MCH MCHC RDW Plt Count MPV Immature Gran % Neutrophils % Lymphocytes % Monocytes % Eosinophils % Basophils % Nucleated RBC % Absolute Neutrophils Absolute Lymphocytes Absolute Monocytes Absolute Eosinophils Absolute Basophils ABG Sample Site Left Radial ABG pH 7.51 H ABG pCO2 31 L ABG pO2 44 L ABG HCO3 24 ABG Total CO2 21 L ABG O2 Saturation 83 L ABG Base Excess 1 VBG pH VBG pCO2 VBG pO2 VBG HCO3 VBG Total CO2 VBG O2 Saturation VBG Base Excess Oxygen Liter Flow 5 Sodium Potassium Chloride Carbon Dioxide Anion Gap BUN Creatinine Estimated GFR/1.73 m2 Glucose Calcium Magnesium Total Bilirubin AST ALT Alkaline Phosphatase Troponin I NT-Pro-B Natriuret Pep Total Protein Albumin Last Vital Signs Temp 37.3 C 08/18/21 13:49 Pulse 72 08/18/21 14:46 Resp 33 H 08/18/21 14:50 BP 112/75 08/18/21 14:46 Pulse Ox 88 L 08/18/21 14:50
[2021-08-18 16:07] LABS: C-Reactive Protein 11.19 mg/dL (0.0-0.3)
[2021-08-18 16:28] LABS: Source Nasal/Nares
[2021-08-18 16:28] LABS: Procalcitonin 0.1 ng/mL
[2021-08-18] MEDS: Omnipaque 350 MG/ML 100 ML BTL IV (17:13)
[2021-08-18 17:35] LABS: COVID-19 PCR POSITIVE (Negative)
--- NOTE | 2021-08-18 18:27 | DI.VRAD_ITS ---
PROCEDURE INFORMATION: Exam: CTA Chest With Contrast Exam date and time: 08/18/2021 3:28 PM Age: 66 years old Clinical indication: Other: Hypoxia, covid, TECHNIQUE: Imaging protocol: Computed tomographic angiography of the chest with contrast. 3D rendering (Not supervised by radiologist): MIP and/or 3D reconstructed images were created by the technologist. Radiation optimization: All CT scans at this facility use at least one of these dose optimization techniques: automated exposure control; mA and/or kV adjustment per patient size (includes targeted exams where dose is matched to clinical indication); or iterative reconstruction. Contrast material: OMNIPAQUE 350; Contrast volume: 100 ml; Contrast route: INTRAVENOUS (IV); COMPARISON: CT CHEST PE CTA 08/10/2021 5:20 PM FINDINGS: Pulmonary arteries: Normal. No pulmonary emboli. Aorta: Unremarkable. No aortic aneurysm. No aortic dissection. Lungs: Interval worsening multi lobar areas of well demarcated ground-glass opacities, now involving the right upper lobe as well as the remaining lobes. Mildly spiculated 1.4 cm nodular opacity within the posterior right lower lobe (previously obscured by patchy consolidation), may be secondary to the infectious process by a neoplastic process cannot be excluded. Pleural spaces: Stable small left pleural effusion. Heart: Unremarkable. No cardiomegaly. No pericardial effusion. Lymph nodes: Unremarkable. No enlarged lymph nodes. Gallbladder and bile ducts: There has been a cholecystectomy. Bones/joints: Unremarkable. No acute fracture. Soft tissues: Unremarkable. IMPRESSION: 1. No evidence of pulmonary embolism. 2. Worsening moderate to severe multi lobar atypical pneumonia. Differential diagnosis includes viral (including COVID-19), fungal or bacterial pathogens. 3. Stable small left pleural effusion. 4. Mildly spiculated 1.4 cm nodular opacity within the posterior right lower lobe (previously obscured by patchy consolidation), may be secondary to the infectious process by a neoplastic process cannot be excluded. Recommend follow-up CT in 6-12 weeks she is to evaluate for resolution. Dictated and Authenticated by: Tian Hunter MD. Ordering:LEAH Crowell MD
[2021-08-18] MEDS: REMDESIVIR 200 MG in Normal Saline 250 ML 250 MG IVPB (18:54)
[2021-08-18] MEDS: Famotidine 20 MG TAB PO (20:01)
[2021-08-18] MEDS: guaiFENesin 600 MG TABCR PO (20:01)
[2021-08-18] MEDS: Ascorbic Acid 500 MG TAB 1000 MG PO (20:01)
[2021-08-18] MEDS: Budesonide/Formoterol 80/4.5 6.9 GM 60 PUFF INH IH (20:01)
[2021-08-19 07:13] LABS: Abs Immature Grans 0.22 10^3/uL (0.0-0.06); Absolute Basophil Count 0.03 10^3/uL (0.0-0.2); Absolute Eosinophil Count 0.01 10^3/uL (0.0-0.7); Absolute Monocyte Count 0.65 10^3/uL (0.1-0.8); Absolute Neutrophil Count 10.14 10^3/uL (1.2-6.7); Basophils % 0.3; Eosinophils % 0.1; HGB 15.4 g/dL (13.5-17.5); Immature Grans % 1.9; Lymphocytes % 4.3; MCHC 32.1 % (32.0-36.0); MCV 90.4 fL (80-95); MPV 10.8 fL (8.0-11.0); Monocytes % 5.6; Neutrophils % 87.8; Nucleated RBC 0 %; Platelet Count 428 10^3/uL (130-400); RBC 5.31 10^6/uL (4.36-5.78); RDW 13.1 % (11.8-14.1); RDW-SD 43.3 fL; WBC 11.55 10^3/uL (4.4-10.8)
[2021-08-19 07:39] LABS: Anion Gap 7.7 mmol/L (3-11); BUN 24 mg/dL (7-18); CO2 27.3 mmol/L (21.0-32.0); Chloride 100 mmol/L (98-107); Glucose 110 mg/dL (74-106); Potassium 4.7 mmol/L (3.5-5.1); Sodium 135 mmol/L (136-145)
[2021-08-19] MEDS: Budesonide/Formoterol 80/4.5 6.9 GM 60 PUFF INH IH ×2 (08:48→20:02)
[2021-08-19 09:00] VITALS: TEMP 31
[2021-08-19 09:23] VITALS: BP 128/69; PULSE 72; RESP 20; TEMP 35.3; O2SAT 88
[2021-08-19] MEDS: Ascorbic Acid 500 MG TAB 1000 MG PO ×2 (09:27→20:02)
[2021-08-19] MEDS: Cholecalciferol (Vitamin D3) 1,000 UNIT TAB 2000 UNITS PO (09:27)
[2021-08-19] MEDS: guaiFENesin 600 MG TABCR PO ×2 (09:27→20:03)
[2021-08-19] MEDS: Famotidine 20 MG TAB PO ×2 (09:27→20:02)
[2021-08-19] MEDS: Lisinopril 5 MG TAB PO (09:27)
[2021-08-19] MEDS: Zinc Sulfate 220 MG TAB PO (09:27)
[2021-08-19] MEDS: Normal Saline Flush 10 ML SYR IVP ×2 (09:32→17:34)
[2021-08-19] MEDS: Dexamethasone 4 MG/ML VIAL 6 MG IVP (09:33)
--- NOTE | 2021-08-19 10:35 | W.PM.PROGNOT ---
Date of Service Date of service: 08/19/21 Time of Service: 10:35 Assessment and Plan Assessment and plan (1) Pneumonia due to COVID-19 virus: Status: Acute Assessment and plan: requiring heated high flow oxygen wean oxygen as able, proning and routine covid labs and monitoring decadron, remdesivir and baricitinib PE ruled out lorazepam for anxiety. (2) Rheumatoid arthritis: Status: Acute (3) COPD (chronic obstructive pulmonary disease): Status: Chronic Assessment and plan: will be on decadron continue home inhalers (4) DVT prophylaxis: Status: Acute Assessment and plan: lovenox (5) Discharge planning issues: Status: Acute Assessment and plan: home when medically stable. discussed with Dr Stephens Subjective Subjective Patient reports: shortness of breath and afebrile Interval history since last seen: feeling anxious Exam Const Orientation: alert HENMT Head: normal to inspection Mouth: moist mucous membranes Eyes General: appearance normal, both eyes and all related structures Neck Neck: normal visual inspection Resp Effort & Inspection: able to speak in complete sentences Cardio Rate: regular rate Skin General skin exam: no rashes or lesions noted Neuro General: patient alert and patient oriented x3 Extrem General: normal to inspection Psych Mental Status: mental status grossly normal Objective Last Vital Signs Temp 35.3 C L 08/19/21 09:23 Pulse 72 08/19/21 09:23 Resp 20 08/19/21 09:23 BP 128/69 08/19/21 09:23 Pulse Ox 88 L 08/19/21 09:23 Laboratory Results - last 24 hr 08/18/21 08/18/21 08/18/21 14:04 14:04 14:04 WBC 12.62 H RBC 5.48 Hgb 16.2 Hct 48.7 MCV 88.9 MCH 29.6 MCHC 33.3 RDW 12.8 Plt Count 410 H MPV 10.2 Immature Gran % 3.2 Neutrophils % 88.2 Lymphocytes % 4.0 Monocytes % 3.7 Eosinophils % 0.7 Basophils % 0.2 Nucleated RBC % 0 Absolute Neutrophils 11.13 H Absolute Lymphocytes 0.50 L Absolute Monocytes 0.47 Absolute Eosinophils 0.09 Absolute Basophils 0.03 ABG Sample Site ABG pH ABG pCO2 ABG pO2 ABG HCO3 ABG Total CO2 ABG O2 Saturation ABG Base Excess VBG pH 7.43 H VBG pCO2 41 VBG pO2 31 VBG HCO3 27 VBG Total CO2 24 VBG O2 Saturation 58 VBG Base Excess 3 Oxygen Liter Flow Sodium 133 L Potassium 4.4 Chloride 99 Carbon Dioxide 26.1 Anion Gap 7.9 BUN 20 H Creatinine 0.9 Estimated GFR/1.73 m2 >= 60.00 Glucose 93 Calcium 8.9 Magnesium 2.3 Total Bilirubin 1.2 H AST 51 H ALT 88 H Alkaline Phosphatase 161 H Troponin I < 50 C-Reactive Protein NT-Pro-B Natriuret Pep 112 Total Protein 6.6 Albumin 2.6 L Procalcitonin COVID-19 Source SARS-CoV-2 (PCR) 08/18/21 08/18/21 08/18/21 14:04 14:04 15:20 WBC RBC Hgb Hct MCV MCH MCHC RDW Plt Count MPV Immature Gran % Neutrophils % Lymphocytes % Monocytes % Eosinophils % Basophils % Nucleated RBC % Absolute Neutrophils Absolute Lymphocytes Absolute Monocytes Absolute Eosinophils Absolute Basophils ABG Sample Site Left Radial ABG pH 7.51 H ABG pCO2 31 L ABG pO2 44 L ABG HCO3 24 ABG Total CO2 21 L ABG O2 Saturation 83 L ABG Base Excess 1 VBG pH VBG pCO2 VBG pO2 VBG HCO3 VBG Total CO2 VBG O2 Saturation VBG Base Excess Oxygen Liter Flow 5 Sodium Potassium Chloride Carbon Dioxide Anion Gap BUN Creatinine Estimated GFR/1.73 m2 Glucose Calcium Magnesium Total Bilirubin AST ALT Alkaline Phosphatase Troponin I C-Reactive Protein 11.19 H NT-Pro-B Natriuret Pep Total Protein Albumin Procalcitonin 0.1 COVID-19 Source SARS-CoV-2 (PCR) 08/18/21 08/19/21 08/19/21 16:26 06:15 06:15 WBC 11.55 H RBC 5.31 Hgb 15.4 Hct 48.0 MCV 90.4 MCH 29.0 MCHC 32.1 RDW 13.1 Plt Count 428 H MPV 10.8 Immature Gran % 1.9 Neutrophils % 87.8 Lymphocytes % 4.3 Monocytes % 5.6 Eosinophils % 0.1 Basophils % 0.3 Nucleated RBC % 0 Absolute Neutrophils 10.14 H Absolute Lymphocytes 0.50 L Absolute Monocytes 0.65 Absolute Eosinophils 0.01 Absolute Basophils 0.03 ABG Sample Site ABG pH ABG pCO2 ABG pO2 ABG HCO3 ABG Total CO2 ABG O2 Saturation ABG Base Excess VBG pH VBG pCO2 VBG pO2 VBG HCO3 VBG Total CO2 VBG O2 Saturation VBG Base Excess Oxygen Liter Flow Sodium 135 L Potassium 4.7 Chloride 100 Carbon Dioxide 27.3 Anion Gap 7.7 BUN 24 H Creatinine 1.0 Estimated GFR/1.73 m2 >= 60.00 Glucose 110 H Calcium 9.0 Magnesium Total Bilirubin AST ALT Alkaline Phosphatase Troponin I C-Reactive Protein NT-Pro-B Natriuret Pep Total Protein Albumin Procalcitonin COVID-19 Source Nasal/Nares SARS-CoV-2 (PCR) POSITIVE A*
[2021-08-19] MEDS: LORazepam 0.5 MG TAB PO ×2 (12:31→20:02)
[2021-08-19 17:41] VITALS: BP 107/72; PULSE 65; RESP 20; TEMP 35.8; O2SAT 94
--- NOTE | 2021-08-19 18:13 | INITIAL_ITS ---
- If Service Date Differs Date of service: 08/19/21 Time of Service: 18:22 Care Management Initial Assess REASON FOR HOSPITALIZATION:: Hypoxia secondary to COVID PAST MEDICAL HISTORY/PAST SURGICAL HISTORY:: Rheumatoid arthritis;Rituxan 3x / year. Pneumonia. COPD (chronic obstructive pulmonary disease) (Chronic) COVID- 19. PREVIOUS FUNCTIONAL STATUS/SOCIAL/FAMILY SUPPORTS:: Resides in [place] with , Li. Independent at baseline in the community, recently discharged from [facility] after COVID admission, experienced worsening respiratory status post discharge and returns with new oxygen requirement at this time. CURRENT FUNCTIONAL STATUS:: Yair is on COVID Precautions, currently on 6L O2. He is struggling with anxiety when he feels SOB, CM will attempt to talk to Yair when he is more stable. 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 PATIENT/FAMILY EDUCATION NEEDS:: Review discharge instructions, discuss Ask Me Three. ANTICIPATED BARRIERS TO DISCHARGE:: COVID: trajectory of illness uncertain at this time. TRANSPORTATION:: Via private vehicle with family. PLAN:: Yair will continue to be closely monitored and treated for COVID, and remain on precautions. He is currently on 6L of O2, undetermined if he will require O2 on discharge; CM will follow. Readmission - Assessment for Readmission Summary of readmission circumstances, based upon interviews: Experienced worsening respiratory status post discharge and returns with new oxygen requirement at this time.
[2021-08-19 20:08] VITALS: BP 103/64; PULSE 63; RESP 20; TEMP 36.5
[2021-08-20] MEDS: Budesonide/Formoterol 80/4.5 6.9 GM 60 PUFF INH IH ×2 (08:18→21:21)
[2021-08-20 08:28] VITALS: TEMP 37
[2021-08-20] MEDS: guaiFENesin 600 MG TABCR PO ×2 (09:01→21:21)
[2021-08-20] MEDS: Famotidine 20 MG TAB PO ×2 (09:01→21:21)
[2021-08-20] MEDS: Cholecalciferol (Vitamin D3) 1,000 UNIT TAB 2000 UNITS PO (09:01)
[2021-08-20] MEDS: Lisinopril 5 MG TAB PO (09:02)
[2021-08-20] MEDS: Ascorbic Acid 500 MG TAB 1000 MG PO ×2 (09:02→21:21)
[2021-08-20] MEDS: Dexamethasone 4 MG/ML VIAL 6 MG IVP (09:02)
[2021-08-20] MEDS: Zinc Sulfate 220 MG TAB PO (09:02)
[2021-08-20 09:07] VITALS: BP 119/77; PULSE 66; RESP 20; TEMP 36.1; O2SAT 93
--- NOTE | 2021-08-20 10:21 | W.PM.PROGNOT ---
Date of Service Date of service: 08/20/21 Time of Service: : Assessment and Plan Assessment and plan (1) Pneumonia due to COVID-19 virus: Status: Acute Assessment and plan: requiring heated high flow oxygen, add cpap for ongoing/worsening hypoxia proning and routine covid labs and monitoring decadron, remdesivir and baricitinib PE ruled out lorazepam for anxiety. blood cultures have been negative (2) Rheumatoid arthritis: Status: Acute (3) COPD (chronic obstructive pulmonary disease): Status: Chronic Assessment and plan: will be on decadron continue home inhalers (4) DVT prophylaxis: Status: Acute Assessment and plan: lovenox (5) Discharge planning issues: Status: Acute Assessment and plan: home when medically stable. discussed with Dr Stephens Subjective Subjective Patient reports: tolerating liquids well, tolerating a regular diet, voiding w/o difficulty, shortness of breath and afebrile Interval history since last seen: increasing oxygen requirements Exam Const Orientation: alert HENMT Head: normal to inspection Mouth: moist mucous membranes Eyes General: appearance normal, both eyes and all related structures Neck Neck: normal visual inspection Resp Effort & Inspection: able to speak in complete sentences Cardio Rate: regular rate Skin General skin exam: no rashes or lesions noted Neuro General: patient alert and patient oriented x3 Extrem General: normal to inspection Psych Mental Status: mental status grossly normal Objective Last Vital Signs Temp 36.1 C L 08/20/21 09:07 Pulse 66 08/20/21 09:07 Resp 20 08/20/21 09:07 BP 119/77 08/20/21 09:07 Pulse Ox 93 08/20/21 09:07
--- NOTE | 2021-08-20 15:58 | CMPROGNOTE_ITS ---
Care Management Progress Note S/O: Yair remains in COVID isolation, now requiring heated high flow oxygen and CPAP for worsening hypoxia. CM continues to follow. A: 66 year old male admitted to [facility] 08/18/21 for Hypoxia secondary to COVID P: Yair will continue to be closely monitored and treated for COVID, and remain on precautions. CM will continue to follow.
[2021-08-20] MEDS: Melatonin 3 MG TAB PO (21:21)
[2021-08-20 21:26] VITALS: BP 107/68; PULSE 63; RESP 21; TEMP 35.9; O2SAT 92
[2021-08-21 07:11] LABS: Abs Immature Grans 0.22 10^3/uL (0.0-0.06); Absolute Lymphocyte Count 0.52 10^3/uL (1.2-3.4); Absolute Monocyte Count 0.68 10^3/uL (0.1-0.8); Basophils % 0.1; Eosinophils % 0.6; HCT 46.5 % (40.0-50.0); HGB 15.2 g/dL (13.5-17.5); Immature Grans % 1.6; Lymphocytes % 3.7; MCH 29.3 pg (27.0-33.0); MCHC 32.7 % (32.0-36.0); MCV 89.8 fL (80-95); MPV 10.4 fL (8.0-11.0); Monocytes % 4.9; Neutrophils % 89.1; Nucleated RBC 0 %; Platelet Count 360 10^3/uL (130-400); RBC 5.18 10^6/uL (4.36-5.78); RDW 12.7 % (11.8-14.1); WBC 13.96 10^3/uL (4.4-10.8)
[2021-08-21 07:12] LABS: Absolute Basophil Count 0.01 10^3/uL (0.0-0.2); Absolute Eosinophil Count 0.08 10^3/uL (0.0-0.7); Absolute Neutrophil Count 12.44 10^3/uL (1.2-6.7)
[2021-08-21 07:28] LABS: Anion Gap 9.5 mmol/L (3-11); BUN 26 mg/dL (7-18); C-Reactive Protein 5.21 mg/dL (0.0-0.3); CO2 23.5 mmol/L (21.0-32.0); CREATININE 0.9 mg/dL (0.70-1.30); Chloride 98 mmol/L (98-107); Glucose 101 mg/dL (74-106); Potassium 4.6 mmol/L (3.5-5.1); Sodium 131 mmol/L (136-145)
[2021-08-21 07:44] LABS: D-Dimer 1278 ng/mlFEU (<500)
[2021-08-21] MEDS: Budesonide/Formoterol 80/4.5 6.9 GM 60 PUFF INH IH ×2 (08:05→21:10)
[2021-08-21 08:10] VITALS: TEMP 31
[2021-08-21 08:32] VITALS: BP 99/67; PULSE 66; RESP 18; TEMP 36; O2SAT 90
[2021-08-21] MEDS: Normal Saline Flush 10 ML SYR IVP ×3 (08:35→21:04)
[2021-08-21] MEDS: Ascorbic Acid 500 MG TAB 1000 MG PO ×2 (08:35→21:04)
[2021-08-21] MEDS: Dexamethasone 4 MG/ML VIAL 6 MG IVP (08:35)
[2021-08-21] MEDS: guaiFENesin 600 MG TABCR PO ×2 (08:36→21:03)
[2021-08-21] MEDS: Zinc Sulfate 220 MG TAB PO (08:36)
[2021-08-21] MEDS: Cholecalciferol (Vitamin D3) 1,000 UNIT TAB 2000 UNITS PO (08:36)
[2021-08-21] MEDS: Lisinopril 5 MG TAB PO (08:36)
[2021-08-21] MEDS: Famotidine 20 MG TAB PO ×2 (08:36→21:03)
[2021-08-21] MEDS: Enoxaparin 40 MG/0.4 ML SYR SC (10:47)
--- NOTE | 2021-08-21 14:00 | W.PM.PROGNOT ---
Date of Service Date of service: 08/21/21 Time of Service: 14:00 Assessment and Plan Assessment and plan (1) Pneumonia due to COVID-19 virus: Status: Acute Assessment and plan: requiring heated high flow oxygen, which as been weaned from 65% FIO2 to 50%. continue proning and ambulation as tolerated in room routine covid labs scheduled for Tuesday, improvement in CRP from 11 to 5 decadron, remdesivir and baricitinib PE ruled out lorazepam for anxiety. blood cultures have been negative (2) Rheumatoid arthritis: Status: Chronic (3) COPD (chronic obstructive pulmonary disease): Status: Chronic Assessment and plan: will be on decadron continue home inhalers (4) DVT prophylaxis: Status: Acute Assessment and plan: lovenox (5) Discharge planning issues: Status: Acute Assessment and plan: home when medically stable. discussed with Dr Cespedes Subjective Subjective Patient reports: no new complaints, tolerating liquids well, tolerating a regular diet, shortness of breath (improving) and afebrile Interval history since last seen: weaning down on oxygen Exam Const General: cooperative, comfortable and no acute distress Nutritional Appearance: average body habitus Orientation: alert, awake and oriented x3 HENMT Head: normal to inspection, normocephalic and atraumatic Resp Effort & Inspection: normal respiratory effort and able to speak in complete sentences Cardio Rate: regular rate Rhythm: regular rhythm Neuro General: patient alert, patient awake and patient oriented x3 Objective Last Vital Signs Temp 36.0 C L 08/21/21 08:32 Pulse 66 08/21/21 08:32 Resp 18 08/21/21 08:32 BP 99/67 L 08/21/21 08:32 Pulse Ox 90 L 08/21/21 08:32 Laboratory Results - last 24 hr 08/21/21 08/21/21 08/21/21 06:35 06:35 06:35 WBC 13.96 H RBC 5.18 Hgb 15.2 Hct 46.5 MCV 89.8 MCH 29.3 MCHC 32.7 RDW 12.7 Plt Count 360 MPV 10.4 Immature Gran % 1.6 Neutrophils % 89.1 Lymphocytes % 3.7 Monocytes % 4.9 Eosinophils % 0.6 Basophils % 0.1 Nucleated RBC % 0 Absolute Neutrophils 12.44 H Absolute Lymphocytes 0.52 L Absolute Monocytes 0.68 Absolute Eosinophils 0.08 Absolute Basophils 0.01 D-Dimer 1278 H Sodium 131 L Potassium 4.6 Chloride 98 Carbon Dioxide 23.5 Anion Gap 9.5 BUN 26 H Creatinine 0.9 Estimated GFR/1.73 m2 >= 60.00 Glucose 101 Calcium 9.0 C-Reactive Protein 5.21 H
[2021-08-21 15:33] VITALS: BP 98/62; PULSE 55; RESP 18; TEMP 35.6; O2SAT 97
[2021-08-21 20:59] VITALS: BP 97/64; PULSE 59; RESP 20; TEMP 35.9; O2SAT 90
[2021-08-21] MEDS: Melatonin 3 MG TAB PO (21:04)
[2021-08-22] VITALS (7 sets, daily range): BP systolic 95–136; BP diastolic 64–76; PULSE 55–61; RESP 16–21; TEMP 35.8–37; O2SAT 90–95
[2021-08-22] MEDS: Dexamethasone 4 MG/ML VIAL 6 MG IVP (07:43)
[2021-08-22] MEDS: Enoxaparin 40 MG/0.4 ML SYR SC (07:43)
[2021-08-22] MEDS: Normal Saline Flush 10 ML SYR IVP ×3 (07:44→19:59)
[2021-08-22] MEDS: Cholecalciferol (Vitamin D3) 1,000 UNIT TAB 2000 UNITS PO (07:44)
[2021-08-22] MEDS: Zinc Sulfate 220 MG TAB PO (07:45)
[2021-08-22] MEDS: Ascorbic Acid 500 MG TAB 1000 MG PO ×2 (07:45→19:59)
[2021-08-22] MEDS: guaiFENesin 600 MG TABCR PO ×2 (07:45→19:59)
[2021-08-22] MEDS: Famotidine 20 MG TAB PO ×2 (07:45→19:59)
[2021-08-22] MEDS: Budesonide/Formoterol 80/4.5 6.9 GM 60 PUFF INH IH ×2 (07:46→20:00)
[2021-08-22 07:51] LABS: HCT 45.3 % (40.0-50.0); HGB 14.9 g/dL (13.5-17.5); MCH 29.2 pg (27.0-33.0); MCHC 32.9 % (32.0-36.0); MCV 88.8 fL (80-95); MPV 10.1 fL (8.0-11.0); Platelet Count 357 10^3/uL (130-400); RDW 12.6 % (11.8-14.1); RDW-SD 41.2 fL
--- NOTE | 2021-08-22 17:39 | W.PM.PROGNOT ---
Date of Service Date of service: 08/22/21 Time of Service: 16:20 Assessment and Plan Assessment and plan (1) Acute respiratory failure with hypoxia: Status: Acute Assessment and plan: Due to COVID-19. Slowly improving. Continue to Wean O2 as tolerated. As below (2) Pneumonia due to COVID-19 virus: Status: Acute Assessment and plan: Continue dexamethasone, remdesivir, baricitinib, vitamin supplementation. Patient is doing excellent with proning/IS/acapella. No role for abx at this time. (3) Rheumatoid arthritis: Status: Chronic Assessment and plan: On ritaxan as outpatient, which likely predisposed him to getting more severe COVID-19. Hold immunosuppression while in hospital. (4) COPD (chronic obstructive pulmonary disease): Status: Chronic Assessment and plan: Continue home inhalers. (5) DVT prophylaxis: Status: Acute Assessment and plan: SC lovenox (6) Discharge planning issues: Status: Acute Assessment and plan: home when medically stable. Continues to require hospitalization at this time. Subjective Subjective Interval history since last seen: Mr Casanova states that he is finally feeling better today. He had a moment of dizziness while working with an incentive spirometer. He called the nurse and his vitals were stable. We discussed how it probably happened from hyperventilation. Denies dizziness, chest pain. Feels less short of breath. Denies nausea. Feels better than yesterday. On humidified heated high flow O2 with FiO2 of 40% (per latest documentation in his room). Exam Narrative Exam Narrative: General: Pleasant middle-aged male who is proning on his abdomen when I arrive in his room, A&Ox3, no dyspnea/tachypnea/cyanosis while on humidified heated high flow NC HEENT: EOMI, MMM Heart: RRR, no m/r/g Lungs: Wheezing R lung resolves after several deep breaths Abdomen: soft, nontender, nondistended Extremities: no edema BLE's Objective Last Vital Signs Temp 36.0 C L 08/22/21 14:42 Pulse 58 L 08/22/21 14:42 Resp 20 08/22/21 14:42 BP 104/68 08/22/21 14:42 Pulse Ox 95 08/22/21 14:42 Laboratory Results - last 24 hr 08/22/21 06:55 WBC 11.60 H RBC 5.10 Hgb 14.9 Hct 45.3 MCV 88.8 MCH 29.2 MCHC 32.9 RDW 12.6 Plt Count 357 MPV 10.1
[2021-08-22] MEDS: Normal Saline 500 ML 30 ML IV (17:51)
[2021-08-22] MEDS: Melatonin 3 MG TAB PO (22:07)
[2021-08-23 04:00] VITALS: BP 100/65; PULSE 56; RESP 16; TEMP 36.4; O2SAT 95
[2021-08-23 07:53] LABS: Abs Immature Grans 0.15 10^3/uL (0.0-0.06); Absolute Basophil Count 0.01 10^3/uL (0.0-0.2); Absolute Eosinophil Count 0.14 10^3/uL (0.0-0.7); Absolute Lymphocyte Count 0.43 10^3/uL (1.2-3.4); Absolute Monocyte Count 0.52 10^3/uL (0.1-0.8); Absolute Neutrophil Count 9.38 10^3/uL (1.2-6.7); Basophils % 0.1; Eosinophils % 1.3; HCT 43.5 % (40.0-50.0); HGB 14.3 g/dL (13.5-17.5); Immature Grans % 1.4; MCHC 32.9 % (32.0-36.0); MCV 88.2 fL (80-95); MPV 10.1 fL (8.0-11.0); Monocytes % 4.9; Neutrophils % 88.3; Nucleated RBC 0 %; Platelet Count 277 10^3/uL (130-400); RBC 4.93 10^6/uL (4.36-5.78); RDW 12.5 % (11.8-14.1); RDW-SD 40.3 fL; WBC 10.63 10^3/uL (4.4-10.8)
[2021-08-23 08:11] LABS: Anion Gap 6.2 mmol/L (3-11); BUN 23 mg/dL (7-18); C-Reactive Protein 2.72 mg/dL (0.0-0.3); CO2 26.8 mmol/L (21.0-32.0); CREATININE 0.8 mg/dL (0.70-1.30); Calcium 8.6 mg/dL (8.5-10.1); Chloride 97 mmol/L (98-107); Glucose 76 mg/dL (74-106); Potassium 4.6 mmol/L (3.5-5.1); Sodium 130 mmol/L (136-145)
[2021-08-23 08:33] LABS: D-Dimer 780 ng/mlFEU (<500)
[2021-08-23] MEDS: Ascorbic Acid 500 MG TAB 1000 MG PO ×2 (08:36→20:11)
[2021-08-23] MEDS: Lisinopril 5 MG TAB PO (08:37)
[2021-08-23] MEDS: Cholecalciferol (Vitamin D3) 1,000 UNIT TAB 2000 UNITS PO (08:37)
[2021-08-23] MEDS: guaiFENesin 600 MG TABCR PO ×2 (08:38→20:10)
[2021-08-23] MEDS: Famotidine 20 MG TAB PO ×2 (08:38→20:11)
[2021-08-23] MEDS: Zinc Sulfate 220 MG TAB PO (08:38)
[2021-08-23] MEDS: Budesonide/Formoterol 80/4.5 6.9 GM 60 PUFF INH IH ×2 (08:39→20:11)
[2021-08-23] MEDS: Enoxaparin 40 MG/0.4 ML SYR SC (08:39)
[2021-08-23] MEDS: Dexamethasone 4 MG/ML VIAL 6 MG IVP (08:39)
[2021-08-23] MEDS: Normal Saline Flush 10 ML SYR IVP ×2 (08:41→20:13)
[2021-08-23 08:42] VITALS: BP 120/64; PULSE 56; RESP 16; TEMP 36.4; O2SAT 92; O2SAT 95
--- NOTE | 2021-08-23 15:37 | W.PM.PROGNOT ---
Date of Service Date of service: 08/23/21 Time of Service: 15:37 Assessment and Plan Assessment and plan (1) Pneumonia due to COVID-19 virus: Status: Acute Assessment and plan: requiring heated high flow oxygen, weaning, continue to wean as tolerated. continue proning and ambulation as tolerated in room routine covid labs improving continue decadron, remdesivir and baricitinib PE ruled out lorazepam for anxiety. blood cultures have been negative (2) Rheumatoid arthritis: Status: Chronic (3) COPD (chronic obstructive pulmonary disease): Status: Chronic Assessment and plan: will be on decadron continue home inhalers (4) DVT prophylaxis: Status: Acute Assessment and plan: lovenox (5) Discharge planning issues: Status: Acute Assessment and plan: home when medically stable. discussed with Dr Cespedes Subjective Subjective Patient reports: no new complaints, feels better, tolerating liquids well, tolerating a regular diet and afebrile Exam Const General: cooperative, comfortable and no acute distress Nutritional Appearance: average body habitus Orientation: alert, awake and oriented x3 HENMT Head: normal to inspection, normocephalic and atraumatic Mouth: moist mucous membranes Eyes General: appearance normal, both eyes and all related structures Neck Neck: normal visual inspection Resp Effort & Inspection: normal respiratory effort and able to speak in complete sentences Cardio Rate: regular rate Rhythm: regular rhythm Skin General skin exam: no rashes or lesions noted Neuro General: patient alert, patient awake and patient oriented x3 Extrem General: normal to inspection Psych Mental Status: mental status grossly normal Objective Last Vital Signs Temp 36.4 C L 08/23/21 08:42 Pulse 56 L 08/23/21 08:42 Resp 16 08/23/21 08:42 BP 120/64 08/23/21 08:42 Pulse Ox 92 08/23/21 08:42 Laboratory Results - last 24 hr 08/23/21 08/23/21 08/23/21 06:50 06:50 06:50 WBC 10.63 RBC 4.93 Hgb 14.3 Hct 43.5 MCV 88.2 MCH 29.0 MCHC 32.9 RDW 12.5 Plt Count 277 MPV 10.1 Immature Gran % 1.4 Neutrophils % 88.3 Lymphocytes % 4.0 Monocytes % 4.9 Eosinophils % 1.3 Basophils % 0.1 Nucleated RBC % 0 Absolute Neutrophils 9.38 H Absolute Lymphocytes 0.43 L Absolute Monocytes 0.52 Absolute Eosinophils 0.14 Absolute Basophils 0.01 D-Dimer 780 H Sodium 130 L Potassium 4.6 Chloride 97 L Carbon Dioxide 26.8 Anion Gap 6.2 BUN 23 H Creatinine 0.8 Estimated GFR/1.73 m2 >= 60.00 Glucose 76 Calcium 8.6 C-Reactive Protein 2.72 H
[2021-08-23 16:28] VITALS: BP 110/74; RESP 18; TEMP 37.1; O2SAT 94
[2021-08-23 20:09] VITALS: BP 100/66; PULSE 60; RESP 19; TEMP 36.5; O2SAT 90
[2021-08-23] MEDS: Albuterol HFA 8 GM 60 PUFF INH IH (20:12)
[2021-08-23] MEDS: Melatonin 3 MG TAB PO (20:13)
[2021-08-23] MEDS: Calcium Carbonate *TUMS* 500 MG CHEW 1000 MG PO (21:25)
[2021-08-23] MEDS: Pantoprazole 40 MG TABCR PO (21:25)
[2021-08-24] VITALS (10 sets, daily range): BP systolic 97–122; BP diastolic 64–88; PULSE 53–66; RESP 18–20; TEMP 35–37; O2SAT 91–98
[2021-08-24] MEDS: Calcium Carbonate *TUMS* 500 MG CHEW 1000 MG PO (08:29)
[2021-08-24] MEDS: Budesonide/Formoterol 80/4.5 6.9 GM 60 PUFF INH IH ×2 (08:29→20:22)
[2021-08-24] MEDS: Enoxaparin 40 MG/0.4 ML SYR SC (08:29)
[2021-08-24] MEDS: Dexamethasone 4 MG/ML VIAL 6 MG IVP (08:29)
[2021-08-24] MEDS: Ascorbic Acid 500 MG TAB 1000 MG PO ×2 (08:29→20:21)
[2021-08-24] MEDS: Cholecalciferol (Vitamin D3) 1,000 UNIT TAB 2000 UNITS PO (08:29)
[2021-08-24] MEDS: guaiFENesin 600 MG TABCR PO ×2 (08:30→20:22)
[2021-08-24] MEDS: Pantoprazole 40 MG TABCR PO (08:30)
[2021-08-24] MEDS: Zinc Sulfate 220 MG TAB PO (08:30)
[2021-08-24] MEDS: Lisinopril 5 MG TAB PO (08:30)
[2021-08-24] MEDS: Normal Saline Flush 10 ML SYR IVP ×2 (08:30→18:10)
--- NOTE | 2021-08-24 08:49 | CMPROGNOTE_ITS ---
- If Service Date Differs Date of service: 08/24/21 Time of Service: 08:49 Care Management Progress Note S/O: Yair continues to require close monitoring and treatment for covid and remains in isolation. He is proning as directed and up independently in his room. Per provider, overall he is improving. He continues to require Hi Flow oxygen. Respiratory is setting him up with a CPAP machine today, which will be used at HS and for sleep. CM continues to follow. A: 66 year old male admitted to [facility] 08/18/21 for Hypoxia secondary to COVID P: Yair will continue to be closely monitored and treated for COVID, and remain on precautions. CM will continue to follow.
[2021-08-24 10:10] LABS: Magnesium 2.2 mg/dL (1.8-2.4)
--- NOTE | 2021-08-24 11:29 | PHA.REVIEW ---
Pharmacy Admission Review - Admission Clinical Review (Last Reviewed 08/14/21 @ 09:30 by Dimas Cox MD) Acute respiratory failure with hypoxia (Acute) Discharge planning issues (Acute) DVT prophylaxis (Acute) Hypoxia (Acute) Pneumonia due to COVID-19 virus (Acute) celecoxib [From Celebrex] Adverse Reaction (Unverified 08/18/21 13:54) Nausea Resuscitation Status Full Code Height 5 ft 7 in Weight 76.204 kg - Renal Dosing Renal Dosing: BUN 23 mg/dL (7-18) H 08/23/21 06:50 Creatinine 0.8 mg/dL (0.70-1.30) 08/23/21 06:50 Medications needing adjustments: Reviewed (Crcl ~86 mL/min, current meds okay) - Anticoagulation Anticoagulation: Hgb 14.3 g/dL (13.5-17.5) 08/23/21 06:50 Hct 43.5 % (40.0-50.0) 08/23/21 06:50 Plt Count 277 10^3/uL (130-400) 08/23/21 06:50 Creatinine 0.8 mg/dL (0.70-1.30) 08/23/21 06:50 DVT Prophylaxis: Reviewed Medications: Enoxaparin Therapeutic Anticoagulation: N/A - Opiate Usage Evaluate Pain Scale/Pains Meds: N/A - Relevant Labs Sodium 130 mmol/L (136-145) L 08/23/21 06:50 Potassium 4.6 mmol/L (3.5-5.1) 08/23/21 06:50 Chloride 97 mmol/L (98-107) L 08/23/21 06:50 Magnesium 2.2 mg/dL (1.8-2.4) 08/24/21 09:50 C-Reactive Protein 2.72 mg/dL (0.0-0.3) H 08/23/21 06:50 Electrolytes, C-Reactive P, ESR: Reviewed - DM Control DM Control: Glucose 76 mg/dL (74-106) 08/23/21 06:50 Insulin Dosing: N/A - Heart Failure/VA Heart Failure/VA: Troponin I < 50 ng/L (<or=60) 08/18/21 14:04 NT-Pro-B Natriuret Pep 112 pg/mL (<300) 08/18/21 14:04 EF%, TWIN's, B-Blockers, Diuretics: Reviewed - BP Control BP Control: Blood Pressure 122/88 Blood Pressure 97/64 If elevated: Reviewed (BP a little low this morning, has been within normal limits most of admission so far.) - Qtc Review If Elevated: N/A (QTc 405 on admission) - IV to PO Switch IV Medications: Reviewed - Home Meds Home Med List reviewed: Reviewed Relevent Home Meds Not ordered & why?: naproxen, prednisone (has dexamethasone ordered) - Current meds Current Medication Order Review: Intervened (Discontinued DI meds (had already been given).) - Comments Comments/Follow Ups: Watch VS, labs, and for med changes.
--- NOTE | 2021-08-24 13:15 | W.PM.PROGNOT ---
Date of Service Date of service: 08/24/21 Time of Service: 12:20 Assessment and Plan Assessment and plan (1) Acute respiratory failure with hypoxia: Status: Acute Assessment and plan: Due to COVID-19. Slowly improving. Continue to Wean O2 as tolerated - on 4L of O2 today by OK. Encourse IS/acapella. CPAP at night if patient tolerates. Consult pulmonology. As below (2) Pneumonia due to COVID-19 virus: Status: Acute Assessment and plan: Consult pulmonology. CPAP ordered for night use. Recheck COVID-19 PCR per patient's family request as they are interested in visitation and discontinuation of precautions. Continue dexamethasone, remdesivir, baricitinib, vitamin supplementation. Patient is doing excellent with proning/IS/acapella. No role for abx at this time. (3) Rheumatoid arthritis: Status: Chronic Assessment and plan: On ritaxan as outpatient, which likely predisposed him to getting more severe COVID-19. Hold immunosuppression while in hospital. (4) COPD (chronic obstructive pulmonary disease): Status: Chronic Assessment and plan: Continue home inhalers. (5) DVT prophylaxis: Status: Acute Assessment and plan: SC lovenox (6) Discharge planning issues: Status: Acute Assessment and plan: home when medically stable. Continues to require hospitalization at this time. Subjective Subjective Interval history since last seen: Mr Casanova states that he is feeling a bit better. He is on 4L of O2 by OK today and no longer on humidified heated high flow. He endorsed having a sensation of heaviness earlier today only when taking deep breaths, not chest pain. He does not have this sensation now, and he was clear that it would only happen in association with inspiration. Denies hemoptysis, states his secretions have been clear but thick. Denies n/v/chest pain. He asked me to speak with his , who was on speaker phone. She expressed concerns re Yair not having had his hair washed or having a sponge bath since hospitalization, that she has not heard from the medical team for the last four days, that she would be interested in visiting him and when would it be possible (we discussed strategies for discontinuation of precautions and that, since he is feeling better but is immunocompramised, we would retest him today). She was interested in having a supervisor gas meter repair be included in the team. She was wondering if there can be a doctor's note written for Yair since he is not going to be able to attend several sports events so that his tickets can be reimbursed. Yair states he would like a shower. I addressed all of these concerns to Mr Jocelyne's and his 's satisfaction. Exam Narrative Exam Narrative: General: Pleasant middle-aged male who is anxious, sitting up in a chair, A&Ox3, overall looks better HEENT: EOMI, MMM Heart: RRR, no m/r/g Lungs: faint crackles right base, otherwise CTAB Abdomen: soft, nontender, nondistended Extremities: no edema BLE's Objective Last Vital Signs Temp 36.2 C L 08/24/21 08:27 Pulse 66 08/24/21 08:27 Resp 18 08/24/21 08:27 BP 122/88 08/24/21 08:27 Pulse Ox 93 08/24/21 11:53 Laboratory Results - last 24 hr 08/24/21 09:50 Magnesium 2.2
[2021-08-24] MEDS: Albuterol HFA 8 GM 60 PUFF INH IH (13:31)
[2021-08-24 13:49] LABS: Source Nasal/Nares
--- NOTE | 2021-08-24 14:13 | W.PULMCON ---
General Date Of Service Date of service: 08/24/21 Time of Service: 14:13 Reason for Consult: COVID-19 Assessment and Plan Assessment and plan (1) Acute respiratory failure with hypoxia: Status: Acute (2) Pneumonia due to COVID-19 virus: Status: Acute (3) Rheumatoid arthritis: Status: Chronic (4) COPD (chronic obstructive pulmonary disease): Status: Chronic Assessment and plan: This is a 66 yo man with RA on Rituxan and COPD who is here for his second hospitalization for COVID. His first test was positive on 08/10/21 and remains positive on this current admission. He is currently receiving Decadron, remdesivir and barcitinib. He required HFNC through the weekend but has improved now to 4L NC. Given his Rituxan use his COVID is likely to be active for a much longer time than with patients not on Rituxan. He is improving from a respiratory perspective, but nocturnal CPAP to aid in lung recruitement will likely prove to be beneficial. I do worry about the interval worsening on his chest imaging and it is possible that a higher dose of Decadron may be helpful. COVID-19 - would increase Decadron from 6mg to 10mg - will plan to switch to high dose prednisone, prolonged taper when closer to discharge - would add Bactrim for PJP ppx - agree with barcitinib and remdesivir Hypoxic respiratory failure - continue to titrate O2 as able to O2 sat 88-92% - agree with CPAP trial this evening - recommend ambulation and up to chair as much as able - continue IS and Acapella - proning as much as able COPD - continue Symbicort - recommend starting Spiriva - agree with albuterol prn - can consider adding Combivent QID Rheumatoid arthritis - would recommend against further Rituxan - recommend discussing with oil and gas principal once discharged History of Present Illness Narrative: This is a 66 yo man with a history of COPD and RA on Rituxan who is admitted to the hospital for worsening COVID-19 PNA. He was initially diagnosed on 08/10/21 and stayed in the hospital until 08/14/21 for treatment of COVID and a COPD exacerbation. He had an infiltrate on CXR and so was treated with ceftriaxone and so was also started on Decadron and remdesivir. 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 He worsened after discharge with persistent hypoxia prompting his return to the hospital. He was readmitted with worsening infiltrates consistent with COVID pneumonia on 08/18/21 with again a positive COVID test. His chest imaging from this admission showed interval worsening of his infiltrative process. He required HFNC throughout the weekend and has requested a pulmonary consultation given his rehospitalization. He now has been able to be weaned to 4L NC. Today, he feels as though he is improving since when he first came in. He is using the IS and Acapella and tries laying on his tummyas much as he can. He is open to trying the CPAP tonight to see if he can tolerate it. His last Rituxan dose was October 2020, and he only receives this once a year. Review of Systems All systems reviewed & are unremarkable except as noted in HPI and below PFSH All Active Problems (Updated 08/22/21 @ 17:44 by Aylin Cespedes MD) Acute respiratory failure with hypoxia (Acute) Discharge planning issues (Acute) DVT prophylaxis (Acute) Hypoxia (Acute) Pneumonia due to COVID-19 virus (Acute) Rheumatoid arthritis (Chronic) Pneumonia (Acute) COPD (chronic obstructive pulmonary disease) (Chronic) Social History Smoking/Tobacco Use Status: Former Tobacco Use Smoking risk assessment performed?: Yes Alcohol Intake: current Alcohol Intake frequency: holidays/special occasions only Drug use: Never Substance use type: does not use Do you feel safe at home: Yes Do you feel safe in your relationship?: Yes Visit Medication and Allergies Active Medications Generic Name Dose Route Start Last Admin Trade Name Freq PRN Reason Stop Dose Admin Albuterol Sulfate 2 puff 08/18/21 15:30 08/24/21 13:31 Albuterol Hfa 8 Gm 60 Puff Inh IH 2 puffs Q4H PRN PRN Administration Ascorbic Acid 1,000 mg 08/18/21 20:00 08/24/21 08:29 Ascorbic Acid 500 Mg Tab PO 1,000 mg BID MARGARET Administration Baricitinib 4 mg 08/19/21 08:30 08/24/21 08:29 Baricitinib 1 Mg Tab PO 09/01/21 08:31 4 mg DAILY MARGARET Administration Budesonide/Formoterol Fumarate 2 puff 12/21/21 20:00 08/24/21 08:29 Budesonide/Formoterol 80/4.5 6.9 Gm 60 Puff Inh IH 2 puffs BID MARGARET Administration Calcium Carbonate 1,000 mg 08/23/21 20:28 08/24/21 08:29 Calcium Carbonate *Tums* 500 Mg Chew PO 1,000 mg QID PRN PRN Administration Cholecalciferol 2,000 units 08/19/21 08:30 08/24/21 08:29 Cholecalciferol (Vitamin D3) 1,000 Unit Tab PO 2,000 units DAILY MARGARET Administration Device 1 each 08/18/21 16:00 Inhaler, Assist Device MC DIRECTED MARGARET Dexamethasone 6 mg 08/19/21 08:30 08/24/21 08:29 Dexamethasone 4 Mg/Ml Vial IVP 6 mg DAILY MARGARET Administration Dimethicone/Zinc Oxide 0 gm 08/18/21 15:12 Karen Protect Cream 142 Gm Tube TP PRN PRN Enoxaparin Sodium 40 mg 08/21/21 10:25 08/24/21 08:29 Enoxaparin 40 Mg/0.4 Ml Syr SC 40 mg DAILY MARGARET Administration Guaifenesin 600 mg 08/18/21 20:00 08/24/21 08:30 Guaifenesin 600 Mg Tabcr PO 600 mg BID MARGARET Administration Sodium Chloride 500 mls @ 0 mls/hr 08/18/21 14:57 08/23/21 16:27 Saline 500ml Bag IV Infused PRN PRN Infusion As Directed Remdesivir 100 mg/ Sodium 100 mls @ 100 mls/hr 08/19/21 18:00 08/23/21 18:32 Chloride IVPB 08/27/21 18:59 Infused Q24H MARGARET Infusion IV Miscellaneous Supplies 1 each 08/18/21 15:00 Iv Access IV DIRECTED MARGARET Lisinopril 5 mg 08/19/21 08:30 08/24/21 08:30 Lisinopril 5 Mg Tab PO 5 mg DAILY MAGRARET Administration Lorazepam 0.5 mg 08/19/21 12:04 08/19/21 20:02 Lorazepam 0.5 Mg Tab PO 0.5 mg TID PRN PRN Administration Melatonin 3 mg 08/20/21 22:00 08/23/21 20:13 Melatonin 3 Mg Tab PO 3 mg HS MARGARET Administration Pantoprazole Sodium 40 mg 08/24/21 07:30 08/24/21 08:30 Pantoprazole 40 Mg Tabcr PO 40 mg DAILY@0730 MARGARET Administration Sodium Chloride 0 ml 08/18/21 14:00 08/24/21 08:30 Normal Saline Flush 10 Ml Syr IVP 10 ml PRN PRN Administration Zinc Sulfate 220 mg 08/19/21 08:30 08/24/21 08:30 Zinc Sulfate 220 Mg Tab PO 220 mg DAILY MARGARET Administration Allergies celecoxib [From Celebrex] Adverse Reaction (Unverified 08/18/21 13:54) Nausea Exam Const General: no acute distress Nutritional Appearance: well nourished [facility] Head: normocephalic Ears: external ears normal and no periauricular adenopathy General nose exam: nasal mucous membranes and turbinates normal Face and sinus: sinuses nontender Mouth: oropharynx normal and moist mucous membranes Teeth and gingiva: dentition normal Eyes General: appearance normal, both eyes and all related structures Pupils: PERRL Neck Neck: normal visual inspection and no lymphadenopathy Chest Chest: normal inspection of the chest Resp Effort & Inspection: normal respiratory effort Auscultation: no rales, no rhonchi and wheezes scattered wheezes (Squeaks) Cardio Rate: regular rate Rhythm: regular rhythm Heart Sounds: S1 normal, S2 normal and no murmurs Pulses: radial pulses present bilaterally GI Inspection: normal to inspection Palpation: soft Skin General skin exam: no rashes or lesions noted Neuro General: patient alert, patient awake and patient oriented x3 Extrem General: no clubbing, cyanosis or edema Psych Mental Status: mental status grossly normal Affect: normal affect Attitude: cooperative Results Last Vital Signs Temp 36.2 C L 08/24/21 08:27 Pulse 66 08/24/21 08:27 Resp 18 08/24/21 08:27 BP 122/88 08/24/21 08:27 Pulse Ox 93 08/24/21 11:53 Labs Result diagrams: 08/23/21 06:50 08/23/21 06:50 Labs: Laboratory Results - last 24 hr 08/24/21 08/24/21 09:50 13:35 Magnesium 2.2 COVID-19 Source Nasal/Nares
[2021-08-24 14:32] LABS: COVID-19 PCR POSITIVE (Negative)
--- NOTE | 2021-08-24 14:53 | TELEFU_ITS ---
Date of service: 08/24/21 Time of Service: 14:53 Nutrition Note NOTE: PO intake is excellent on a regular diet. Weight is down 9% this past month which is clinically significant. He may not be able to eat quite as much as usual given his respiratory status. Will offer him some liquid nutritional supplements to help keep his calories and protein adequate. His BMI is 26.3 kg/m2 which is WNL for his age. Will continue monitor nutritional status. Will evaluate nutrition care plan ashleigh oing and adjust as needed. Time Spent in Nutritional Counseling and Treatment: 0
[2021-08-24] MEDS: Dexamethasone 4 MG/ML VIAL IVP (16:05)
[2021-08-24] MEDS: Melatonin 3 MG TAB PO (20:21)
[2021-08-25] VITALS (7 sets, daily range): BP systolic 107–125; BP diastolic 63–81; PULSE 54–80; RESP 18–20; TEMP 35.6–35.7; O2SAT 93–98
[2021-08-25] MEDS: Normal Saline Flush 10 ML SYR IVP ×2 (04:14→19:26)
[2021-08-25 07:01] LABS: Abs Immature Grans 0.13 10^3/uL (0.0-0.06); Absolute Basophil Count 0.01 10^3/uL (0.0-0.2); Absolute Eosinophil Count 0.04 10^3/uL (0.0-0.7); Absolute Lymphocyte Count 0.36 10^3/uL (1.2-3.4); Absolute Monocyte Count 0.61 10^3/uL (0.1-0.8); Basophils % 0.1; Eosinophils % 0.5; HCT 42.4 % (40.0-50.0); HGB 14.3 g/dL (13.5-17.5); Immature Grans % 1.6; Lymphocytes % 4.3; MCH 29.1 pg (27.0-33.0); MCHC 33.7 % (32.0-36.0); MCV 86.4 fL (80-95); MPV 9.9 fL (8.0-11.0); Monocytes % 7.3; Neutrophils % 86.2; Nucleated RBC 0 %; Platelet Count 313 10^3/uL (130-400); RBC 4.91 10^6/uL (4.36-5.78); RDW 12.3 % (11.8-14.1); RDW-SD 38.8 fL; WBC 8.35 10^3/uL (4.4-10.8)
[2021-08-25 07:13] LABS: INR 1.3 (0.9-1.1); Prothrombin Time 12.7 sec (9.3-11.0)
[2021-08-25 07:37] LABS: Procalcitonin < 0.1 ng/mL
[2021-08-25 07:50] LABS: ALT 37 U/L (16-63); AST 18 U/L (15-37); Albumin 2.3 g/dL (3.4-5.0); Alkaline Phosphatase 107 U/L (46-116); Anion Gap 5.3 mmol/L (3-11); BUN 22 mg/dL (7-18); Bilirubin, Total 0.5 mg/dL (0.2-1.0); CO2 29.7 mmol/L (21.0-32.0); CREATININE 0.8 mg/dL (0.70-1.30); Calcium 8.7 mg/dL (8.5-10.1); Chloride 96 mmol/L (98-107); Ferritin 1844 ng/mL (26-388); Glucose 113 mg/dL (74-106); Potassium 4.9 mmol/L (3.5-5.1); Sodium 131 mmol/L (136-145); Total Protein 5.7 g/dL (6.4-8.2)
[2021-08-25 07:55] LABS: D-Dimer 417 ng/mlFEU (<500)
[2021-08-25 07:59] LABS: Bilirubin, Direct 0.2 mg/dL (0.0-0.2); C-Reactive Protein 2.96 mg/dL (0.0-0.3)
[2021-08-25] MEDS: Budesonide/Formoterol 80/4.5 6.9 GM 60 PUFF INH IH ×2 (08:29→19:30)
--- NOTE | 2021-08-25 09:00 | W.PULMPROG ---
Assessment and Plan Assessment and plan (1) Acute respiratory failure with hypoxia: Status: Acute (2) Pneumonia due to COVID-19 virus: Status: Acute (3) Rheumatoid arthritis: Status: Chronic (4) COPD (chronic obstructive pulmonary disease): Status: Chronic Assessment and plan: This is a 66 yo man with RA on Rituxan and COPD who is here for his second hospitalization for COVID. His first test was positive on 08/10/21 and remains positive on this current admission. He is currently receiving Decadron, remdesivir and barcitinib. He required HFNC through the weekend but has improved now to 4L NC. I decreased his O2 this morning to 3L, as he had COPD an oxygen goal between 88-92% is adequate. Given his Rituxan use his COVID is likely to be active for a much longer time than with patients not on Rituxan. He is improving from a respiratory perspective, but nocturnal CPAP to aid in lung recruitement will likely prove to be beneficial. I do worry about the interval worsening on his chest imaging and so increased his Decadron to 10mg for now. COVID-19 - would increase Decadron from 6mg to 10mg - can switch to the following steroid taper for discharge: - prednisone 60mg for 1 week, 50mg for 1 week, 40mg for 1 week, 30mg for 1 week, 20mg for 1 week, 10mg for 1 week, 5mg for 1 week - will need to be on Bactrim for PJP ppx until on less than 20mg prednisone - agree with barcitinib and remdesivir - will need follow up with his asset management analyst approximately 1 month from now Hypoxic respiratory failure - continue to titrate O2 as able to O2 sat 88-92% - agree with CPAP trial this evening - RT to go by in afternoon to fit it and make sure things are working well - recommend ambulation and up to chair as much as able - continue IS and Acapella - proning as much as able COPD - continue Symbicort - starting Spiriva - agree with albuterol prn - can consider adding Combivent QID Rheumatoid arthritis - would recommend against further Rituxan - recommend discussing with earth science professor once discharged General Date Of Service Date of service: 08/25/21 Time of Service: 08:30 Reason for Consult: COVID-19 Subjective 24 Hour Events: Yair is feeling well today. He says his oxygen must have come off during the night and he woke up and saw it on the floor. He said that he felt more tired this morning and thinks it was due to probably not having the oxygen on for the entire night. He tried to put on the CPAP overnight with nursing however it was not fitting and the machine kept alarming and they were not able to figure it out. He asked if RT could come by after lunch to fit it and set it up for him to try it out during the day so at night things are more organized. Exam Const General: no acute distress Nutritional Appearance: well nourished [facility] Head: normocephalic Ears: external ears normal and no periauricular adenopathy General nose exam: nasal mucous membranes and turbinates normal Face and sinus: sinuses nontender Mouth: oropharynx normal and moist mucous membranes Teeth and gingiva: dentition normal Eyes General: appearance normal, both eyes and all related structures Pupils: PERRL Neck Neck: normal visual inspection and no lymphadenopathy Chest Chest: normal inspection of the chest Resp Effort & Inspection: normal respiratory effort Auscultation: clear to auscultation bilaterally, no rales, no rhonchi and wheezes expiratory wheezes Cardio Rate: regular rate Rhythm: regular rhythm Heart Sounds: S1 normal, S2 normal and no murmurs Pulses: radial pulses present bilaterally GI Inspection: normal to inspection Palpation: soft Skin General skin exam: no rashes or lesions noted Neuro General: patient alert, patient awake and patient oriented x3 Extrem General: no clubbing, cyanosis or edema Psych Mental Status: mental status grossly normal Affect: normal affect Attitude: cooperative Objective Last Vital Signs Temp 35.6 C L 08/25/21 04:10 Pulse 54 L 08/25/21 04:10 Resp 19 08/25/21 04:10 BP 110/68 08/25/21 04:10 Pulse Ox 96 08/25/21 04:10 Laboratory Results - last 24 hr 08/24/21 08/24/21 08/25/21 09:50 13:35 06:43 WBC 8.35 RBC 4.91 Hgb 14.3 Hct 42.4 MCV 86.4 MCH 29.1 MCHC 33.7 RDW 12.3 Plt Count 313 MPV 9.9 Immature Gran % 1.6 Neutrophils % 86.2 Lymphocytes % 4.3 Monocytes % 7.3 Eosinophils % 0.5 Basophils % 0.1 Nucleated RBC % 0 Absolute Neutrophils 7.20 H Absolute Lymphocytes 0.36 L Absolute Monocytes 0.61 Absolute Eosinophils 0.04 Absolute Basophils 0.01 PT INR D-Dimer Sodium Potassium Chloride Carbon Dioxide Anion Gap BUN Creatinine Estimated GFR/1.73 m2 Glucose Calcium Magnesium 2.2 Ferritin Total Bilirubin Conjugated Bilirubin AST ALT Alkaline Phosphatase C-Reactive Protein Total Protein Albumin Procalcitonin COVID-19 Source Nasal/Nares SARS-CoV-2 (PCR) POSITIVE A* 08/25/21 08/25/21 08/25/21 06:43 06:43 06:43 WBC RBC Hgb Hct MCV MCH MCHC RDW Plt Count MPV Immature Gran % Neutrophils % Lymphocytes % Monocytes % Eosinophils % Basophils % Nucleated RBC % Absolute Neutrophils Absolute Lymphocytes Absolute Monocytes Absolute Eosinophils Absolute Basophils PT 12.7 H INR 1.3 H D-Dimer 417 Sodium 131 L Potassium 4.9 Chloride 96 L Carbon Dioxide 29.7 Anion Gap 5.3 BUN 22 H Creatinine 0.8 Estimated GFR/1.73 m2 >= 60.00 Glucose 113 H Calcium 8.7 Magnesium Ferritin 1844 H Total Bilirubin 0.5 Conjugated Bilirubin 0.2 AST 18 ALT 37 Alkaline Phosphatase 107 C-Reactive Protein 2.96 H Total Protein 5.7 L Albumin 2.3 L Procalcitonin < 0.1 COVID-19 Source SARS-CoV-2 (PCR) Results Medications Medications: Active Medications Generic Name Dose Route Start Last Admin Trade Name Freq PRN Reason Stop Dose Admin Albuterol Sulfate 2 puff 08/18/21 15:30 08/24/21 13:31 Albuterol Hfa 8 Gm 60 Puff Inh IH 2 puffs Q4H PRN PRN Administration Ascorbic Acid 1,000 mg 08/18/21 20:00 08/24/21 20:21 Ascorbic Acid 500 Mg Tab PO 1,000 mg BID MARGARET Administration Baricitinib 4 mg 08/19/21 08:30 08/24/21 08:29 Baricitinib 1 Mg Tab PO 09/01/21 08:31 4 mg DAILY MARGARET Administration Budesonide/Formoterol Fumarate 2 puff 08/18/21 20:00 08/25/21 08:29 Budesonide/Formoterol 80/4.5 6.9 Gm 60 Puff Inh IH 2 puffs BID MARGARET Administration Calcium Carbonate 1,000 mg 08/23/21 20:28 08/24/21 08:29 Calcium Carbonate *Tums* 500 Mg Chew PO 1,000 mg QID PRN PRN Administration Cholecalciferol 2,000 units 08/19/21 08:30 08/24/21 08:29 Cholecalciferol (Vitamin D3) 1,000 Unit Tab PO 2,000 units DAILY MARGARET Administration Device 1 each 08/18/21 16:00 Inhaler, Assist Device DIRECTED MARGARET Dexamethasone 10 mg 08/25/21 08:30 Dexamethasone 10 Mg/Ml Vial IVP DAILY MARGARET Dimethicone/Zinc Oxide 0 gm 08/18/21 15:12 Karen Protect Cream 142 Gm Tube TP PRN PRN Enoxaparin Sodium 40 mg 08/21/21 10:25 08/24/21 08:29 Enoxaparin 40 Mg/0.4 Ml Syr SC 40 mg DAILY MARGARET Administration Guaifenesin 600 mg 08/18/21 20:00 08/24/21 20:22 Guaifenesin 600 Mg Tabcr PO 600 mg BID MARGARET Administration Sodium Chloride 500 mls @ 0 mls/hr 08/18/21 14:57 08/23/21 16:27 Saline 500ml Bag IV Infused PRN PRN Infusion As Directed Remdesivir 100 mg/ Sodium 100 mls @ 100 mls/hr 08/19/21 18:00 08/24/21 20:20 Chloride IVPB 08/27/21 18:59 Infused Q24H MARGARET Infusion IV Miscellaneous Supplies 1 each 08/18/21 15:00 Iv Access IV DIRECTED MARGARET Lisinopril 5 mg 08/19/21 08:30 08/24/21 08:30 Lisinopril 5 Mg Tab PO 5 mg DAILY MARGARET Administration Lorazepam 0.5 mg 08/19/21 12:04 08/19/21 20:02 Lorazepam 0.5 Mg Tab PO 0.5 mg TID PRN PRN Administration Melatonin 3 mg 08/20/21 22:00 08/24/21 20:21 Melatonin 3 Mg Tab PO 3 mg HS MARGARET Administration Pantoprazole Sodium 40 mg 08/24/21 07:30 08/24/21 08:30 Pantoprazole 40 Mg Tabcr PO 40 mg DAILY@0730 MARGARET Administration Sodium Chloride 0 ml 08/18/21 14:00 08/25/21 04:14 Normal Saline Flush 10 Ml Syr IVP 10 ml PRN PRN Administration Tiotropium [place] 2 puff 08/25/21 08:30 Tiotropium [place]-Respimat 10 Puff Inh IH DAILY MARGARET Trimethoprim/Sulfamethoxazole 1 tab 08/25/21 08:30 Sulfameth/Trimeth Ds Tab PO DAILY MARGARET Zinc Sulfate 220 mg 08/19/21 08:30 08/24/21 08:30 Zinc Sulfate 220 Mg Tab PO 220 mg DAILY MARGARET Administration Allergies celecoxib [From Celebrex] Adverse Reaction (Unverified 08/18/21 13:54) Nausea Labs Result Diagrams: 08/25/21 06:43 08/25/21 06:43 Labs: 08/18/21 14:19 Blood Blood Culture - Final NO GROWTH 120 HOURS 08/18/21 14:04 Blood Blood Culture - Final NO GROWTH 120 HOURS Laboratory Tests Range/Units 08/18/21 08/18/21 08/18/21 14:04 14:04 14:04 WBC (4.4-10.8) 10^3/uL 12.62 H RBC (4.36-5.78) 10^6/uL 5.48 Hgb (13.5-17.5) g/dL 16.2 Hct (40.0-50.0) % 48.7 MCV (80-95) fL 88.9 MCH (27.0-33.0) pg 29.6 MCHC (32.0-36.0) % 33.3 RDW (11.8-14.1) % 12.8 Plt Count (130-400) 10^3/uL 410 H MPV (8.0-11.0) fL 10.2 Immature Gran % 3.2 Neutrophils % 88.2 Lymphocytes % 4.0 Monocytes % 3.7 Eosinophils % 0.7 Basophils % 0.2 Nucleated RBC % % 0 Absolute Neutrophils (1.2-6.7) 10^3/uL 11.13 H Absolute Lymphocytes (1.2-3.4) 10^3/uL 0.50 L Absolute Monocytes (0.1-0.8) 10^3/uL 0.47 Absolute Eosinophils (0.0-0.7) 10^3/uL 0.09 Absolute Basophils (0.0-0.2) 10^3/uL 0.03 PT (9.3-11.0) sec INR (0.9-1.1) D-Dimer (<500) ng/mlFEU ABG Sample Site ABG pH (7.35-7.45) ABG pCO2 (35-45) mmHg ABG pO2 (80-105) mmHg ABG HCO3 (22-26) mmol/L ABG Total CO2 (23-27) mmol/L ABG O2 Saturation (95-98) % ABG Base Excess (-2-3) mmol/L VBG pH (7.31-7.41) 7.43 H VBG pCO2 (41-51) mmHg 41 VBG pO2 mmHg 31 VBG HCO3 (23-28) mmol/L 27 VBG Total CO2 (24-29) mmol/L 24 VBG O2 Saturation % 58 VBG Base Excess (-2-3) mmol/L 3 Oxygen Liter Flow L Sodium (136-145) mmol/L 133 L Potassium (3.5-5.1) mmol/L 4.4 Chloride (98-107) mmol/L 99 Carbon Dioxide (21.0-32.0) mmol/L 26.1 Anion Gap (3-11) mmol/L 7.9 BUN (7-18) mg/dL 20 H Creatinine (0.70-1.30) mg/dL 0.9 Estimated GFR/1.73 m2 (mL/min/1.73m2) >= 60.00 Glucose (74-106) mg/dL 93 Calcium (8.5-10.1) mg/dL 8.9 Magnesium (1.8-2.4) mg/dL 2.3 Ferritin (26-388) ng/mL Total Bilirubin (0.2-1.0) mg/dL 1.2 H Conjugated Bilirubin (0.0-0.2) mg/dL AST (15-37) U/L 51 H ALT (16-63) U/L 88 H Alkaline Phosphatase (46-116) U/L 161 H Troponin I (<or=60) ng/L < 50 C-Reactive Protein (0.0-0.3) mg/dL NT-Pro-B Natriuret Pep (<300) pg/mL 112 Total Protein (6.4-8.2) g/dL 6.6 Albumin (3.4-5.0) g/dL 2.6 L Procalcitonin ng/mL COVID-19 Source SARS-CoV-2 (PCR) (Negative) Range/Units 08/18/21 08/18/21 08/18/21 14:04 14:04 15:20 WBC (4.4-10.8) 10^3/uL RBC (4.36-5.78) 10^6/uL Hgb (13.5-17.5) g/dL Hct (40.0-50.0) % MCV (80-95) fL MCH (27.0-33.0) pg MCHC (32.0-36.0) % RDW (11.8-14.1) % Plt Count (130-400) 10^3/uL MPV (8.0-11.0) fL Immature Gran % Neutrophils % Lymphocytes % Monocytes % Eosinophils % Basophils % Nucleated RBC % % Absolute Neutrophils (1.2-6.7) 10^3/uL Absolute Lymphocytes (1.2-3.4) 10^3/uL Absolute Monocytes (0.1-0.8) 10^3/uL Absolute Eosinophils (0.0-0.7) 10^3/uL Absolute Basophils (0.0-0.2) 10^3/uL PT (9.3-11.0) sec INR (0.9-1.1) D-Dimer (<500) ng/mlFEU ABG Sample Site Left Radial ABG pH (7.35-7.45) 7.51 H ABG pCO2 (35-45) mmHg 31 L ABG pO2 (80-105) mmHg 44 L ABG HCO3 (22-26) mmol/L 24 ABG Total CO2 (23-27) mmol/L 21 L ABG O2 Saturation (95-98) % 83 L ABG Base Excess (-2-3) mmol/L 1 VBG pH (7.31-7.41) VBG pCO2 (41-51) mmHg VBG pO2 mmHg VBG HCO3 (23-28) mmol/L VBG Total CO2 (24-29) mmol/L VBG O2 Saturation % VBG Base Excess (-2-3) mmol/L Oxygen Liter Flow L 5 Sodium (136-145) mmol/L Potassium (3.5-5.1) mmol/L Chloride (98-107) mmol/L Carbon Dioxide (21.0-32.0) mmol/L Anion Gap (3-11) mmol/L BUN (7-18) mg/dL Creatinine (0.70-1.30) mg/dL Estimated GFR/1.73 m2 (mL/min/1.73m2) Glucose (74-106) mg/dL Calcium (8.5-10.1) mg/dL Magnesium (1.8-2.4) mg/dL Ferritin (26-388) ng/mL Total Bilirubin (0.2-1.0) mg/dL Conjugated Bilirubin (0.0-0.2) mg/dL AST (15-37) U/L ALT (16-63) U/L Alkaline Phosphatase (46-116) U/L Troponin I (<or=60) ng/L C-Reactive Protein (0.0-0.3) mg/dL 11.19 H NT-Pro-B Natriuret Pep (<300) pg/mL Total Protein (6.4-8.2) g/dL Albumin (3.4-5.0) g/dL Procalcitonin ng/mL 0.1 COVID-19 Source SARS-CoV-2 (PCR) (Negative) Range/Units 08/18/21 08/19/21 08/19/21 16:26 06:15 06:15 WBC (4.4-10.8) 10^3/uL 11.55 H RBC (4.36-5.78) 10^6/uL 5.31 Hgb (13.5-17.5) g/dL 15.4 Hct (40.0-50.0) % 48.0 MCV (80-95) fL 90.4 MCH (27.0-33.0) pg 29.0 MCHC (32.0-36.0) % 32.1 RDW (11.8-14.1) % 13.1 Plt Count (130-400) 10^3/uL 428 H MPV (8.0-11.0) fL 10.8 Immature Gran % 1.9 Neutrophils % 87.8 Lymphocytes % 4.3 Monocytes % 5.6 Eosinophils % 0.1 Basophils % 0.3 Nucleated RBC % % 0 Absolute Neutrophils (1.2-6.7) 10^3/uL 10.14 H Absolute Lymphocytes (1.2-3.4) 10^3/uL 0.50 L Absolute Monocytes (0.1-0.8) 10^3/uL 0.65 Absolute Eosinophils (0.0-0.7) 10^3/uL 0.01 Absolute Basophils (0.0-0.2) 10^3/uL 0.03 PT (9.3-11.0) sec INR (0.9-1.1) D-Dimer (<500) ng/mlFEU ABG Sample Site ABG pH (7.35-7.45) ABG pCO2 (35-45) mmHg ABG pO2 (80-105) mmHg ABG HCO3 (22-26) mmol/L ABG Total CO2 (23-27) mmol/L ABG O2 Saturation (95-98) % ABG Base Excess (-2-3) mmol/L VBG pH (7.31-7.41) VBG pCO2 (41-51) mmHg VBG pO2 mmHg VBG HCO3 (23-28) mmol/L VBG Total CO2 (24-29) mmol/L VBG O2 Saturation % VBG Base Excess (-2-3) mmol/L Oxygen Liter Flow L Sodium (136-145) mmol/L 135 L Potassium (3.5-5.1) mmol/L 4.7 Chloride (98-107) mmol/L 100 Carbon Dioxide (21.0-32.0) mmol/L 27.3 Anion Gap (3-11) mmol/L 7.7 BUN (7-18) mg/dL 24 H Creatinine (0.70-1.30) mg/dL 1.0 Estimated GFR/1.73 m2 (mL/min/1.73m2) >= 60.00 Glucose (74-106) mg/dL 110 H Calcium (8.5-10.1) mg/dL 9.0 Magnesium (1.8-2.4) mg/dL Ferritin (26-388) ng/mL Total Bilirubin (0.2-1.0) mg/dL Conjugated Bilirubin (0.0-0.2) mg/dL AST (15-37) U/L ALT (16-63) U/L Alkaline Phosphatase (46-116) U/L Troponin I (<or=60) ng/L C-Reactive Protein (0.0-0.3) mg/dL NT-Pro-B Natriuret Pep (<300) pg/mL Total Protein (6.4-8.2) g/dL Albumin (3.4-5.0) g/dL Procalcitonin ng/mL COVID-19 Source Nasal/Nares SARS-CoV-2 (PCR) (Negative) POSITIVE A* Range/Units 08/21/21 08/21/21 08/21/21 06:35 06:35 06:35 WBC (4.4-10.8) 10^3/uL 13.96 H RBC (4.36-5.78) 10^6/uL 5.18 Hgb (13.5-17.5) g/dL 15.2 Hct (40.0-50.0) % 46.5 MCV (80-95) fL 89.8 MCH (27.0-33.0) pg 29.3 MCHC (32.0-36.0) % 32.7 RDW (11.8-14.1) % 12.7 Plt Count (130-400) 10^3/uL 360 MPV (8.0-11.0) fL 10.4 Immature Gran % 1.6 Neutrophils % 89.1 Lymphocytes % 3.7 Monocytes % 4.9 Eosinophils % 0.6 Basophils % 0.1 Nucleated RBC % % 0 Absolute Neutrophils (1.2-6.7) 10^3/uL 12.44 H Absolute Lymphocytes (1.2-3.4) 10^3/uL 0.52 L Absolute Monocytes (0.1-0.8) 10^3/uL 0.68 Absolute Eosinophils (0.0-0.7) 10^3/uL 0.08 Absolute Basophils (0.0-0.2) 10^3/uL 0.01 PT (9.3-11.0) sec INR (0.9-1.1) D-Dimer (<500) ng/mlFEU 1278 H ABG Sample Site ABG pH (7.35-7.45) ABG pCO2 (35-45) mmHg ABG pO2 (80-105) mmHg ABG HCO3 (22-26) mmol/L ABG Total CO2 (23-27) mmol/L ABG O2 Saturation (95-98) % ABG Base Excess (-2-3) mmol/L VBG pH (7.31-7.41) VBG pCO2 (41-51) mmHg VBG pO2 mmHg VBG HCO3 (23-28) mmol/L VBG Total CO2 (24-29) mmol/L VBG O2 Saturation % VBG Base Excess (-2-3) mmol/L Oxygen Liter Flow L Sodium (136-145) mmol/L 131 L Potassium (3.5-5.1) mmol/L 4.6 Chloride (98-107) mmol/L 98 Carbon Dioxide (21.0-32.0) mmol/L 23.5 Anion Gap (3-11) mmol/L 9.5 BUN (7-18) mg/dL 26 H Creatinine (0.70-1.30) mg/dL 0.9 Estimated GFR/1.73 m2 (mL/min/1.73m2) >= 60.00 Glucose (74-106) mg/dL 101 Calcium (8.5-10.1) mg/dL 9.0 Magnesium (1.8-2.4) mg/dL Ferritin (26-388) ng/mL Total Bilirubin (0.2-1.0) mg/dL Conjugated Bilirubin (0.0-0.2) mg/dL AST (15-37) U/L ALT (16-63) U/L Alkaline Phosphatase (46-116) U/L Troponin I (<or=60) ng/L C-Reactive Protein (0.0-0.3) mg/dL 5.21 H NT-Pro-B Natriuret Pep (<300) pg/mL Total Protein (6.4-8.2) g/dL Albumin (3.4-5.0) g/dL Procalcitonin ng/mL COVID-19 Source SARS-CoV-2 (PCR) (Negative) Range/Units 08/22/21 08/23/21 08/23/21 06:55 06:50 06:50 WBC (4.4-10.8) 10^3/uL 11.60 H 10.63 RBC (4.36-5.78) 10^6/uL 5.10 4.93 Hgb (13.5-17.5) g/dL 14.9 14.3 Hct (40.0-50.0) % 45.3 43.5 MCV (80-95) fL 88.8 88.2 MCH (27.0-33.0) pg 29.2 29.0 MCHC (32.0-36.0) % 32.9 32.9 RDW (11.8-14.1) % 12.6 12.5 Plt Count (130-400) 10^3/uL 357 277 MPV (8.0-11.0) fL 10.1 10.1 Immature Gran % 1.4 Neutrophils % 88.3 Lymphocytes % 4.0 Monocytes % 4.9 Eosinophils % 1.3 Basophils % 0.1 Nucleated RBC % % 0 Absolute Neutrophils (1.2-6.7) 10^3/uL 9.38 H Absolute Lymphocytes (1.2-3.4) 10^3/uL 0.43 L Absolute Monocytes (0.1-0.8) 10^3/uL 0.52 Absolute Eosinophils (0.0-0.7) 10^3/uL 0.14 Absolute Basophils (0.0-0.2) 10^3/uL 0.01 PT (9.3-11.0) sec INR (0.9-1.1) D-Dimer (<500) ng/mlFEU ABG Sample Site ABG pH (7.35-7.45) ABG pCO2 (35-45) mmHg ABG pO2 (80-105) mmHg ABG HCO3 (22-26) mmol/L ABG Total CO2 (23-27) mmol/L ABG O2 Saturation (95-98) % ABG Base Excess (-2-3) mmol/L VBG pH (7.31-7.41) VBG pCO2 (41-51) mmHg VBG pO2 mmHg VBG HCO3 (23-28) mmol/L VBG Total CO2 (24-29) mmol/L VBG O2 Saturation % VBG Base Excess (-2-3) mmol/L Oxygen Liter Flow L Sodium (136-145) mmol/L 130 L Potassium (3.5-5.1) mmol/L 4.6 Chloride (98-107) mmol/L 97 L Carbon Dioxide (21.0-32.0) mmol/L 26.8 Anion Gap (3-11) mmol/L 6.2 BUN (7-18) mg/dL 23 H Creatinine (0.70-1.30) mg/dL 0.8 Estimated GFR/1.73 m2 (mL/min/1.73m2) >= 60.00 Glucose (74-106) mg/dL 76 Calcium (8.5-10.1) mg/dL 8.6 Magnesium (1.8-2.4) mg/dL Ferritin (26-388) ng/mL Total Bilirubin (0.2-1.0) mg/dL Conjugated Bilirubin (0.0-0.2) mg/dL AST (15-37) U/L ALT (16-63) U/L Alkaline Phosphatase (46-116) U/L Troponin I (<or=60) ng/L C-Reactive Protein (0.0-0.3) mg/dL 2.72 H NT-Pro-B Natriuret Pep (<300) pg/mL Total Protein (6.4-8.2) g/dL Albumin (3.4-5.0) g/dL Procalcitonin ng/mL COVID-19 Source SARS-CoV-2 (PCR) (Negative) Range/Units 08/23/21 08/24/21 08/24/21 06:50 09:50 13:35 WBC (4.4-10.8) 10^3/uL RBC (4.36-5.78) 10^6/uL Hgb (13.5-17.5) g/dL Hct (40.0-50.0) % MCV (80-95) fL MCH (27.0-33.0) pg MCHC (32.0-36.0) % RDW (11.8-14.1) % Plt Count (130-400) 10^3/uL MPV (8.0-11.0) fL Immature Gran % Neutrophils % Lymphocytes % Monocytes % Eosinophils % Basophils % Nucleated RBC % % Absolute Neutrophils (1.2-6.7) 10^3/uL Absolute Lymphocytes (1.2-3.4) 10^3/uL Absolute Monocytes (0.1-0.8) 10^3/uL Absolute Eosinophils (0.0-0.7) 10^3/uL Absolute Basophils (0.0-0.2) 10^3/uL PT (9.3-11.0) sec INR (0.9-1.1) D-Dimer (<500) ng/mlFEU 780 H ABG Sample Site ABG pH (7.35-7.45) ABG pCO2 (35-45) mmHg ABG pO2 (80-105) mmHg ABG HCO3 (22-26) mmol/L ABG Total CO2 (23-27) mmol/L ABG O2 Saturation (95-98) % ABG Base Excess (-2-3) mmol/L VBG pH (7.31-7.41) VBG pCO2 (41-51) mmHg VBG pO2 mmHg VBG HCO3 (23-28) mmol/L VBG Total CO2 (24-29) mmol/L VBG O2 Saturation % VBG Base Excess (-2-3) mmol/L Oxygen Liter Flow L Sodium (136-145) mmol/L Potassium (3.5-5.1) mmol/L Chloride (98-107) mmol/L Carbon Dioxide (21.0-32.0) mmol/L Anion Gap (3-11) mmol/L BUN (7-18) mg/dL Creatinine (0.70-1.30) mg/dL Estimated GFR/1.73 m2 (mL/min/1.73m2) Glucose (74-106) mg/dL Calcium (8.5-10.1) mg/dL Magnesium (1.8-2.4) mg/dL 2.2 Ferritin (26-388) ng/mL Total Bilirubin (0.2-1.0) mg/dL Conjugated Bilirubin (0.0-0.2) mg/dL AST (15-37) U/L ALT (16-63) U/L Alkaline Phosphatase (46-116) U/L Troponin I (<or=60) ng/L C-Reactive Protein (0.0-0.3) mg/dL NT-Pro-B Natriuret Pep (<300) pg/mL Total Protein (6.4-8.2) g/dL Albumin (3.4-5.0) g/dL Procalcitonin ng/mL COVID-19 Source Nasal/Nares SARS-CoV-2 (PCR) (Negative) POSITIVE A* Range/Units 08/25/21 08/25/21 08/25/21 06:43 06:43 06:43 WBC (4.4-10.8) 10^3/uL 8.35 RBC (4.36-5.78) 10^6/uL 4.91 Hgb (13.5-17.5) g/dL 14.3 Hct (40.0-50.0) % 42.4 MCV (80-95) fL 86.4 MCH (27.0-33.0) pg 29.1 MCHC (32.0-36.0) % 33.7 RDW (11.8-14.1) % 12.3 Plt Count (130-400) 10^3/uL 313 MPV (8.0-11.0) fL 9.9 Immature Gran % 1.6 Neutrophils % 86.2 Lymphocytes % 4.3 Monocytes % 7.3 Eosinophils % 0.5 Basophils % 0.1 Nucleated RBC % % 0 Absolute Neutrophils (1.2-6.7) 10^3/uL 7.20 H Absolute Lymphocytes (1.2-3.4) 10^3/uL 0.36 L Absolute Monocytes (0.1-0.8) 10^3/uL 0.61 Absolute Eosinophils (0.0-0.7) 10^3/uL 0.04 Absolute Basophils (0.0-0.2) 10^3/uL 0.01 PT (9.3-11.0) sec INR (0.9-1.1) D-Dimer (<500) ng/mlFEU ABG Sample Site ABG pH (7.35-7.45) ABG pCO2 (35-45) mmHg ABG pO2 (80-105) mmHg ABG HCO3 (22-26) mmol/L ABG Total CO2 (23-27) mmol/L ABG O2 Saturation (95-98) % ABG Base Excess (-2-3) mmol/L VBG pH (7.31-7.41) VBG pCO2 (41-51) mmHg VBG pO2 mmHg VBG HCO3 (23-28) mmol/L VBG Total CO2 (24-29) mmol/L VBG O2 Saturation % VBG Base Excess (-2-3) mmol/L Oxygen Liter Flow L Sodium (136-145) mmol/L 131 L Potassium (3.5-5.1) mmol/L 4.9 Chloride (98-107) mmol/L 96 L Carbon Dioxide (21.0-32.0) mmol/L 29.7 Anion Gap (3-11) mmol/L 5.3 BUN (7-18) mg/dL 22 H Creatinine (0.70-1.30) mg/dL 0.8 Estimated GFR/1.73 m2 (mL/min/1.73m2) >= 60.00 Glucose (74-106) mg/dL 113 H Calcium (8.5-10.1) mg/dL 8.7 Magnesium (1.8-2.4) mg/dL Ferritin (26-388) ng/mL 1844 H Total Bilirubin (0.2-1.0) mg/dL 0.5 Conjugated Bilirubin (0.0-0.2) mg/dL 0.2 AST (15-37) U/L 18 ALT (16-63) U/L 37 Alkaline Phosphatase (46-116) U/L 107 Troponin I (<or=60) ng/L C-Reactive Protein (0.0-0.3) mg/dL 2.96 H NT-Pro-B Natriuret Pep (<300) pg/mL Total Protein (6.4-8.2) g/dL 5.7 L Albumin (3.4-5.0) g/dL 2.3 L Procalcitonin ng/mL < 0.1 COVID-19 Source SARS-CoV-2 (PCR) (Negative) Range/Units 08/25/21 06:43 WBC (4.4-10.8) 10^3/uL RBC (4.36-5.78) 10^6/uL Hgb (13.5-17.5) g/dL Hct (40.0-50.0) % MCV (80-95) fL MCH (27.0-33.0) pg MCHC (32.0-36.0) % RDW (11.8-14.1) % Plt Count (130-400) 10^3/uL MPV (8.0-11.0) fL Immature Gran % Neutrophils % Lymphocytes % Monocytes % Eosinophils % Basophils % Nucleated RBC % % Absolute Neutrophils (1.2-6.7) 10^3/uL Absolute Lymphocytes (1.2-3.4) 10^3/uL Absolute Monocytes (0.1-0.8) 10^3/uL Absolute Eosinophils (0.0-0.7) 10^3/uL Absolute Basophils (0.0-0.2) 10^3/uL PT (9.3-11.0) sec 12.7 H INR (0.9-1.1) 1.3 H D-Dimer (<500) ng/mlFEU 417 ABG Sample Site ABG pH (7.35-7.45) ABG pCO2 (35-45) mmHg ABG pO2 (80-105) mmHg ABG HCO3 (22-26) mmol/L ABG Total CO2 (23-27) mmol/L ABG O2 Saturation (95-98) % ABG Base Excess (-2-3) mmol/L VBG pH (7.31-7.41) VBG pCO2 (41-51) mmHg VBG pO2 mmHg VBG HCO3 (23-28) mmol/L VBG Total CO2 (24-29) mmol/L VBG O2 Saturation % VBG Base Excess (-2-3) mmol/L Oxygen Liter Flow L Sodium (136-145) mmol/L Potassium (3.5-5.1) mmol/L Chloride (98-107) mmol/L Carbon Dioxide (21.0-32.0) mmol/L Anion Gap (3-11) mmol/L BUN (7-18) mg/dL Creatinine (0.70-1.30) mg/dL Estimated GFR/1.73 m2 (mL/min/1.73m2) Glucose (74-106) mg/dL Calcium (8.5-10.1) mg/dL Magnesium (1.8-2.4) mg/dL Ferritin (26-388) ng/mL Total Bilirubin (0.2-1.0) mg/dL Conjugated Bilirubin (0.0-0.2) mg/dL AST (15-37) U/L ALT (16-63) U/L Alkaline Phosphatase (46-116) U/L Troponin I (<or=60) ng/L C-Reactive Protein (0.0-0.3) mg/dL NT-Pro-B Natriuret Pep (<300) pg/mL Total Protein (6.4-8.2) g/dL Albumin (3.4-5.0) g/dL Procalcitonin ng/mL COVID-19 Source SARS-CoV-2 (PCR) (Negative)
--- NOTE | 2021-08-25 09:54 | PDOC.CMPRO ---
- If Service Date Differs Date of service: 08/25/21 Time of Service: 09:54 Care Management Progress Note S/O: Yair continues to require close monitoring and treatment for covid and remains in isolation. He is proning as directed and up independently in his room. Per provider, overall he is improving. He continues to require Hi Flow oxygen. Yair had difficulty wearing his CPAP machine last night. RT will offer additional support and a trial today. CM continues to follow. A: 66 year old male admitted to [facility] 08/18/21 for Hypoxia secondary to COVID P: Yair will continue to be closely monitored and treated for COVID, and remain on precautions. CM will continue to follow.
[2021-08-25] MEDS: Dexamethasone 10 MG/ML VIAL IVP (10:11)
[2021-08-25] MEDS: Enoxaparin 40 MG/0.4 ML SYR SC (10:11)
[2021-08-25] MEDS: Pantoprazole 40 MG TABCR PO (10:12)
[2021-08-25] MEDS: LORazepam 0.5 MG TAB PO ×2 (10:12→21:41)
[2021-08-25] MEDS: Sulfameth/Trimeth DS TAB 1 TAB PO (10:13)
[2021-08-25] MEDS: Lisinopril 5 MG TAB PO (10:13)
[2021-08-25] MEDS: guaiFENesin 600 MG TABCR PO ×2 (10:14→19:26)
[2021-08-25] MEDS: Cholecalciferol (Vitamin D3) 1,000 UNIT TAB 2000 UNITS PO (10:14)
[2021-08-25] MEDS: Zinc Sulfate 220 MG TAB PO (10:14)
[2021-08-25] MEDS: Ascorbic Acid 500 MG TAB 1000 MG PO ×2 (10:15→19:26)
[2021-08-25] MEDS: Tiotropium Bromide-Respimat 10 PUFF INH 2 PUFF IH (13:53)
--- NOTE | 2021-08-25 15:08 | PGE_ITS ---
Date of Service Date of service: 08/25/21 Time of Service: 15:08 Assessment and Plan Assessment and plan (1) Pneumonia due to COVID-19 virus: Status: Acute Assessment and plan: continues to wean oxygen titrate O2 as able to O2 sat 88-92%. continue proning and ambulation as tolerated in room routine covid labs improving continue increased decadron, baricitinib, and remdesivir will need prednisone taper as directed at discharge. - prednisone 60mg for 1 week, 50mg for 1 week, 40mg for 1 week, 30mg for 1 week, 20mg for 1 week, 10mg for 1 week, 5mg for 1 week - will need to be on Bactrim for PJP ppx until on less than 20mg prednisone blood cultures have been negative continue CPAP as tolerated at night. (2) Rheumatoid arthritis: Status: Chronic Assessment and plan: Per pulmonology: - would recommend against further Rituxan - recommend discussing with warhead maintenance specialist once discharged (3) COPD (chronic obstructive pulmonary disease): Status: Chronic Assessment and plan: will be on decadron continue home inhalers (4) DVT prophylaxis: Status: Acute Assessment and plan: lovenox (5) Discharge planning issues: Status: Acute Assessment and plan: home when medically stable. discussed with Dr Cespedes Subjective Subjective Patient reports: no new complaints, feels better, tolerating liquids well, tolerating a regular diet and afebrile Exam Const General: cooperative, comfortable and no acute distress Nutritional Appearance: average body habitus Orientation: alert, awake and oriented x3 HENMT Head: normal to inspection, normocephalic and atraumatic Mouth: moist mucous membranes Neck Neck: normal visual inspection Resp Effort & Inspection: normal respiratory effort and able to speak in complete sentences Cardio Rate: regular rate Rhythm: regular rhythm Skin General skin exam: no rashes or lesions noted Neuro General: patient alert, patient awake and patient oriented x3 Extrem General: normal to inspection Psych Mental Status: mental status grossly normal Objective Last Vital Signs Temp 35.6 C L 08/25/21 10:21 Pulse 66 08/25/21 10:21 Resp 20 08/25/21 10:21 BP 107/74 08/25/21 10:21 Pulse Ox 98 08/25/21 10:21 Laboratory Results - last 24 hr 08/25/21 08/25/21 08/25/21 06:43 06:43 06:43 WBC 8.35 RBC 4.91 Hgb 14.3 Hct 42.4 MCV 86.4 MCH 29.1 MCHC 33.7 RDW 12.3 Plt Count 313 MPV 9.9 Immature Gran % 1.6 Neutrophils % 86.2 Lymphocytes % 4.3 Monocytes % 7.3 Eosinophils % 0.5 Basophils % 0.1 Nucleated RBC % 0 Absolute Neutrophils 7.20 H Absolute Lymphocytes 0.36 L Absolute Monocytes 0.61 Absolute Eosinophils 0.04 Absolute Basophils 0.01 PT INR D-Dimer Sodium 131 L Potassium 4.9 Chloride 96 L Carbon Dioxide 29.7 Anion Gap 5.3 BUN 22 H Creatinine 0.8 Estimated GFR/1.73 m2 >= 60.00 Glucose 113 H Calcium 8.7 Ferritin 1844 H Total Bilirubin 0.5 Conjugated Bilirubin 0.2 AST 18 ALT 37 Alkaline Phosphatase 107 C-Reactive Protein 2.96 H Total Protein 5.7 L Albumin 2.3 L Procalcitonin < 0.1 08/25/21 06:43 WBC RBC Hgb Hct MCV MCH MCHC RDW Plt Count MPV Immature Gran % Neutrophils % Lymphocytes % Monocytes % Eosinophils % Basophils % Nucleated RBC % Absolute Neutrophils Absolute Lymphocytes Absolute Monocytes Absolute Eosinophils Absolute Basophils PT 12.7 H INR 1.3 H D-Dimer 417 Sodium Potassium Chloride Carbon Dioxide Anion Gap BUN Creatinine Estimated GFR/1.73 m2 Glucose Calcium Ferritin Total Bilirubin Conjugated Bilirubin AST ALT Alkaline Phosphatase C-Reactive Protein Total Protein Albumin Procalcitonin
[2021-08-25] MEDS: Normal Saline 500 ML 30 ML IV (17:13)
[2021-08-25] MEDS: Melatonin 3 MG TAB PO (21:41)
[2021-08-25] MEDS: Albuterol HFA 8 GM 60 PUFF INH IH (21:42)
[2021-08-26] VITALS (9 sets, daily range): BP systolic 98–118; BP diastolic 60–67; PULSE 54–69; RESP 18–23; TEMP 35.7–36.3; O2SAT 91–98
[2021-08-26] MEDS: Normal Saline Flush 10 ML SYR IVP ×2 (09:33→21:30)
[2021-08-26] MEDS: Enoxaparin 40 MG/0.4 ML SYR SC (09:33)
[2021-08-26] MEDS: Budesonide/Formoterol 80/4.5 6.9 GM 60 PUFF INH IH ×2 (09:34→21:30)
[2021-08-26] MEDS: Tiotropium Bromide-Respimat 10 PUFF INH 2 PUFF IH (09:34)
[2021-08-26] MEDS: Dexamethasone 10 MG/ML VIAL IVP (09:36)
[2021-08-26] MEDS: Pantoprazole 40 MG TABCR PO (09:36)
[2021-08-26] MEDS: Ascorbic Acid 500 MG TAB 1000 MG PO ×2 (09:36→21:28)
[2021-08-26] MEDS: Cholecalciferol (Vitamin D3) 1,000 UNIT TAB 2000 UNITS PO (09:36)
[2021-08-26] MEDS: Zinc Sulfate 220 MG TAB PO (09:36)
[2021-08-26] MEDS: Sulfameth/Trimeth DS TAB 1 TAB PO (09:37)
[2021-08-26] MEDS: Lisinopril 5 MG TAB PO (09:37)
[2021-08-26] MEDS: guaiFENesin 600 MG TABCR PO ×2 (09:37→21:28)
--- NOTE | 2021-08-26 10:30 | PT.INIE ---
Date of service: 08/26/21 Time of Service: 10:30 PT Notes Visit Reasons: Hypoxia secondary to Covid Physical Therapy Inpatient Initial Evaluation Date: 08/26/2021 Referring Doctor: Mervat Romero NP PT Orders: PT CONSULT: Provide exercises he can perform Precautions: Fall. Standard. Activity as tolerated. COVID-19 PPE required. Patient Profile/Admitting Diagnosis: Yair is a 66-year-old male on rheumatoid arthritis medication who presented to the ED on 08/18/2021 due to worsening shortness of breath. Patient is diagnosed with acute respiratory failure with hypoxia pneumonia due to COVID-19 infection, COPD exacerbation PMHX: All Active Problems (Updated 08/18/21 @ 15:42 by Mervat Romero NP) Discharge planning issues (Acute) DVT prophylaxis (Acute) Hypoxia (Acute) Pneumonia due to COVID-19 virus (Acute) Rheumatoid arthritis (Acute) Pneumonia (Acute) COPD (chronic obstructive pulmonary disease) (Chronic) Social History/Home Situation: Lives with in a private home with 4 steps to enter with rails on both sides. Independent with all aspects of ADLs prior to admission. No falls in the past year Equipment Owned/DME: None Subjective: Agreeable to PT consult.. Continues to report shortness of breath with activity, subsides with rest. Objective: General Observation: On 3.5 L/min of oxygen supplementation via NC. Mental Status: Alert and oriented as to person, place, time, and purpose. Able to pay attention, focus, and respond appropriately. Pain: Denies Vital Signs: Desaturated to 86% on 5 L with ambulation activity ROM: Right Upper Extremity: Shoulder Flexion WFL. Shoulder abduction WFL. Elbow flexion WFL. Wrist flexion WFL. Functional opening and closing of hand WFL. Left Upper Extremity: Shoulder Flexion WFL. Shoulder abduction WFL. Elbow flexion WFL. Wrist flexion WFL. Functional opening and closing of hand WFL. Right Lower Extremity: Hip flexion WFL. Hip abduction WFL. Knee flexion WFL. Ankle dorsiflexion WFL. Ankle plantarflexion WFL. Left Lower Extremity: Hip flexion WFL. Hip abduction WFL. Knee flexion WFL. Ankle dorsiflexion WFL. Ankle plantarflexion WFL. Strength: Right Upper Extremity: Shoulder flexors 4/5. Shoulder abductors 5/5. Elbow flexors 5/5. Elbow extensors 5/5. Mine Wirer strong. Left Upper Extremity: Shoulder flexors 4/5. Shoulder abductors 5/5. Elbow flexors 5/5. Elbow extensors 5/5. Mine Wirer strong. Right Lower Extremity: Hip flexors 5/5. Hip abductors 5/5. Knee flexors 5/5. Knee extensors 5/5. Ankle dorsiflexors 5/5. Ankle plantarflexors 5/5. Left Lower Extremity: Hip flexors 5/5. Hip abductors 5/5. Knee flexors 5/5. Knee extensors 5/5. Ankle dorsiflexors 5/5. Ankle plantarflexors 5/5. Bed Mobility/Transfers: Rolling independent Supine to sit independent Sit to supine independent Sit to stand independent Stand to sit independent Bed to reclining chair with independent Reclining chair to bed with independent Gait: Instructed patient with level surface ambulation of 88 feet with independence. No assistive device needed. Ana decreased. SOB worsening with desaturation to 86% on 5 L/min. Balance: Static Sitting: Normal Dynamic Sitting: Normal Static Standing: Normal Dynamic Standing: Good Special Tests: Mobility Limitations Standardized Measure [facility] AM-PAC 6 clicks Basic Mobility Inpatient Short Form: Raw Score: 24 CMS Score: 0% deficit Informed Consent/Education: Patient was instructed in purpose of PT consult and plan of care. Agreeable to proceed with established PT POC to achieve personal goals. Assessment: Yair is independent with all in-room ambulation and transfers with no assistive device required. He has been provided with standing level lower extremity exercises interspersed with upper extremity exercises combined with chest expansion/deep breathing exercises with special instructions given to ensure that he requests nursing or RT staff to increase oxygen saturation to 5 L when he is about to do his exercises in the morning and in the afternoon. Patient demonstrates 100% mastery of room exercises and is agreeable to exercise progression in 5 days as he is able to tolerate. Patient will be seen for 3-4 visits in the next 2 weeks to assess for appropriateness of exercise progression to facilitate gradual increase in efficiency of breathing with activity. Patient presents with clinical signs and symptoms consistent with current/admitting diagnoses that have resulted to mobility limitations, gait instability, generalized weakness, and overall ADL decline as demonstrated by the following impairment level findings: 1. Impaired activity tolerance 2. Shortness of breath Impairments are contributing to the following functional limitations: 1. Increased completion time for mobility ADL performance Patient is [place] a 25144 moderate complexity based on the following: History: 66 [id number] with past medical history as indicated above Examination: Demonstrable impairment in strength, balance, and mobility level with underlying impairments and functional limitations as exhibited above as well as deficit score of 24% utilizing the [facility] Mobility Inpatient Short Form Presentation: Evolving Decision Makin moderate complexity Goals: Goals X 2 weeks 1. Patient will demonstrate independent in room ambulation and progressive strengthening exercise performance with oxygen saturation staying above 88% on 3 L/min of oxygen supplementation. Plan of Care/Treatment Plan: 3-4 visits for the next 2 weeks for an individualized exercise program designed to increase efficiency of breathing during mobility performance DISCHARGE RECOMMENDATIONS: [X] Home with no services. Home when medically cleared by hospitalist. Patient will be provided with home exercise program as needed. [] Home with services [specify] [] Home with outpatient PT [] [] SNF for continued rehabilitation [] [] [facility] [] [] SNF versus LTC based on ability to participate and progress [] TREATMENT CODE/TIME: 9716 2 x 20 minutes, 90357 x 15 minutes, 08832 x 16 minutes beginning at 10:30 AM. Thank you for the opportunity to participate in the care of this patient. Opal King PT, DPT, CLT [facility] [place], [place]
--- NOTE | 2021-08-26 10:51 | PDOC.CMPRO ---
- If Service Date Differs Date of service: 08/26/21 Time of Service: 10:51 Care Management Progress Note S/O: Yair continues to require close monitoring and treatment for covid and remains in isolation. He is proning as directed and up independently in his room. Per provider, overall he is improving, O2 Sat is 95% on 3L NC. CM continues to follow. A: 66 year old male admitted to [facility] 08/18/21 for Hypoxia secondary to COVID P: Anticipate Yair will discharge home when medically cleared by provider. He will transport via private vehicle with family. No [facility] services are anticipated at this time. RT will continue to access Yair's need for home O2. Yair will follow up with community providers and discharge plan of care as prescribed.
[2021-08-26] MEDS: LORazepam 0.5 MG TAB PO ×2 (12:05→21:28)
--- NOTE | 2021-08-26 14:24 | PGE_ITS ---
Date of Service Date of service: 08/26/21 Time of Service: 14:24 Assessment and Plan Assessment and plan (1) Pneumonia due to COVID-19 virus: Status: Acute Assessment and plan: continues to wean oxygen titrate O2 as able to O2 sat 88-92%. continue proning and ambulation as tolerated in room routine covid labs improving continue increased decadron, baricitinib, and remdesivir will need prednisone taper as directed at discharge. - prednisone 60mg for 1 week, 50mg for 1 week, 40mg for 1 week, 30mg for 1 week, 20mg for 1 week, 10mg for 1 week, 5mg for 1 week - will need to be on Bactrim for PJP ppx until on less than 20mg prednisone blood cultures have been negative continue CPAP as tolerated at night. (2) Rheumatoid arthritis: Status: Chronic Assessment and plan: Per pulmonology: - would recommend against further Rituxan - recommend discussing with sewing machine tester once discharged (3) COPD (chronic obstructive pulmonary disease): Status: Chronic Assessment and plan: will be on decadron continue home inhalers (4) DVT prophylaxis: Status: Acute Assessment and plan: lovenox (5) Discharge planning issues: Status: Acute Assessment and plan: home when medically stable. discussed with Dr Cespedes Subjective Subjective Patient reports: no new complaints, feels better, tolerating liquids well, tolerating a regular diet and afebrile Exam Const General: cooperative, comfortable and no acute distress Nutritional Appearance: average body habitus Orientation: alert, awake and oriented x3 HENMT Head: normal to inspection, normocephalic and atraumatic Mouth: moist mucous membranes Eyes General: appearance normal, both eyes and all related structures Neck Neck: normal visual inspection Resp Effort & Inspection: normal respiratory effort and able to speak in complete sentences Cardio Rate: regular rate Rhythm: regular rhythm Skin General skin exam: no rashes or lesions noted Neuro General: patient alert, patient awake and patient oriented x3 Extrem General: normal to inspection Psych Mental Status: mental status grossly normal Objective Last Vital Signs Temp 36.3 C L 08/26/21 07:57 Pulse 69 08/26/21 11:22 Resp 20 08/26/21 11:22 BP 110/67 08/26/21 07:57 Pulse Ox 93 08/26/21 11:22
[2021-08-26] MEDS: Normal Saline 500 ML 30 ML IV (17:15)
[2021-08-26] MEDS: Melatonin 3 MG TAB PO (21:28)
[2021-08-27 05:26] VITALS: BP 110/66; PULSE 57; RESP 16; TEMP 36; O2SAT 96
[2021-08-27 08:44] VITALS: BP 105/68; PULSE 62; RESP 19; TEMP 36; O2SAT 97
[2021-08-27] MEDS: Budesonide/Formoterol 80/4.5 6.9 GM 60 PUFF INH IH ×2 (09:23→20:26)
[2021-08-27] MEDS: Tiotropium Bromide-Respimat 10 PUFF INH 2 PUFF IH (09:24)
[2021-08-27] MEDS: Ascorbic Acid 500 MG TAB 1000 MG PO ×2 (10:05→20:24)
[2021-08-27] MEDS: Cholecalciferol (Vitamin D3) 1,000 UNIT TAB 2000 UNITS PO (10:06)
[2021-08-27] MEDS: Lisinopril 5 MG TAB PO (10:07)
[2021-08-27] MEDS: Enoxaparin 40 MG/0.4 ML SYR SC (10:07)
[2021-08-27] MEDS: guaiFENesin 600 MG TABCR PO ×2 (10:07→20:24)
[2021-08-27] MEDS: Pantoprazole 40 MG TABCR PO (10:08)
[2021-08-27] MEDS: Sulfameth/Trimeth DS TAB 1 TAB PO (10:09)
[2021-08-27] MEDS: Zinc Sulfate 220 MG TAB PO (10:09)
[2021-08-27 10:30] VITALS: PULSE 79; PULSE 80; PULSE 81; PULSE 85; RESP 16; RESP 17; RESP 18; O2SAT 83; O2SAT 91; O2SAT 95
--- NOTE | 2021-08-27 10:49 | CMPROGNOTE_ITS ---
- If Service Date Differs Date of service: 08/27/21 Time of Service: 10:49 Care Management Progress Note S/O: Yair continues to require close monitoring and treatment for covid and remains in isolation. CM was unable to meet with him in person but did speak to him on the phone. Yair stated that he is feeling much better. He had an ambulatory oximetry study this morning which indicated that he will require oxygen at home when discharged. Other services may be needed as well. Yair sh ared that he does not feel ready to leave today, stating that he feels that he would be too rushed. Since he continues to receive treatment for his Covid infection, there is no plan to discharge him today, but he may be ready tomorrow. A: 66 year old male admitted to [facility] 08/18/21 for Hypoxia secondary to COVID P: Anticipate Yair will discharge home when medically cleared by provider. He will transport via private vehicle with family. No [facility] services are anticipated at this time. Based on his ambulatory oximetry test today, he will require home oxygen. Yair will follow up with community providers and discharge plan of care as prescribed.
[2021-08-27] MEDS: DEXAMETHASONE 8 MG, DEXAMETHASONE 2 MG 10 MG PO (13:05)
[2021-08-27 14:37] VITALS: O2SAT 97
[2021-08-27 15:48] VITALS: BP 121/72; PULSE 60; RESP 18; TEMP 36.1; O2SAT 96
--- NOTE | 2021-08-27 16:39 | W.PM.PROGNOT ---
Date of Service Date of service: 08/27/21 Time of Service: 16:39 Assessment and Plan Assessment and plan (1) Pneumonia due to COVID-19 virus: Status: Acute Assessment and plan: continues to wean oxygen titrate O2 as able to O2 sat 88-92%. continue proning and ambulation as tolerated in room routine covid labs improving continue increased decadron, baricitinib, and remdesivir will need prednisone taper as directed at discharge. - prednisone 60mg for 1 week, 50mg for 1 week, 40mg for 1 week, 30mg for 1 week, 20mg for 1 week, 10mg for 1 week, 5mg for 1 week - will need to be on Bactrim for PJP ppx until on less than 20mg prednisone blood cultures have been negative continue CPAP as tolerated at night. (2) Rheumatoid arthritis: Status: Chronic Assessment and plan: Per pulmonology: - would recommend against further Rituxan - recommend discussing with reaming machine operator once discharged (3) COPD (chronic obstructive pulmonary disease): Status: Chronic Assessment and plan: will be on decadron, will be discharged home on a steroid taper continue home inhalers (4) DVT prophylaxis: Status: Acute Assessment and plan: lovenox (5) Discharge planning issues: Status: Acute Assessment and plan: home tomorrow, home oxygen ordered. discussed with Dr Cespedes Subjective Subjective Patient reports: no new complaints, feels better, tolerating liquids well, tolerating a regular diet, voiding w/o difficulty, shortness of breath (still sob oe) and afebrile Exam Const General: no acute distress Orientation: alert, awake and oriented x3 Other: ambulatory in the room unassisted Resp Effort & Inspection: normal respiratory effort and able to speak in complete sentences Extrem General: normal to inspection and full ROM Objective Last Vital Signs Temp 36.1 C L 08/27/21 15:48 Pulse 60 08/27/21 15:48 Resp 18 08/27/21 15:48 BP 121/72 08/27/21 15:48 Pulse Ox 96 08/27/21 15:48
[2021-08-27] MEDS: Normal Saline Flush 10 ML SYR IVP (18:36)
[2021-08-27] MEDS: LORazepam 0.5 MG TAB PO (20:24)
[2021-08-27 20:27] VITALS: BP 110/72; PULSE 57; RESP 22; TEMP 36.2; O2SAT 99
[2021-08-27] MEDS: Melatonin 3 MG TAB PO (22:13)
[2021-08-28] MEDS: Budesonide/Formoterol 80/4.5 6.9 GM 60 PUFF INH IH (08:20)
[2021-08-28] MEDS: Tiotropium Bromide-Respimat 10 PUFF INH 2 PUFF IH (08:20)
[2021-08-28] MEDS: Enoxaparin 40 MG/0.4 ML SYR SC (09:26)
[2021-08-28] MEDS: Lisinopril 5 MG TAB PO (09:27)
[2021-08-28] MEDS: Zinc Sulfate 220 MG TAB PO (09:27)
[2021-08-28] MEDS: DEXAMETHASONE 8 MG, DEXAMETHASONE 2 MG 10 MG PO (09:27)
[2021-08-28] MEDS: Ascorbic Acid 500 MG TAB 1000 MG PO (09:28)
[2021-08-28] MEDS: Pantoprazole 40 MG TABCR PO (09:28)
[2021-08-28] MEDS: guaiFENesin 600 MG TABCR PO (09:28)
[2021-08-28] MEDS: Sulfameth/Trimeth DS TAB 1 TAB PO (09:28)
[2021-08-28] MEDS: Cholecalciferol (Vitamin D3) 1,000 UNIT TAB 2000 UNITS PO (09:28)
[2021-08-28 09:39] VITALS: BP 114/67; PULSE 70; RESP 18; TEMP 35.9; O2SAT 94
--- NOTE | 2021-08-28 12:13 | DSE_ITS ---
Date of service: 08/28/21 Time of Service: 12:13 DS: Diagnosis Discharge Diagnosis (1) Pneumonia due to COVID-19 virus: (2) Rheumatoid arthritis: (3) COPD (chronic obstructive pulmonary disease): Discharge Plan Disposition Patient Disposition: HOME Condition: Stable Discharge Details Reason For Visit: Hypoxia secondary to Covid Admit Date/Time: 08/18/21 14:57 Admit Provider: Pollo Stephens Attending Provider: Pollo Stephens Primary Care Provider: Heath Anderson Hospital Course Hospital Course: This is a 66 year old male who is covid positive, was fully vaccinated. He had a brief hospitalization and was discharged as he had no oxygen requirements. Soon after discharge he noted he was hypoxic, unable to maintain sats above 90% on room air. He was admitted and started back up on decadron, rituxinab, and baricitinab. He was slow to recover requiring high oxygen rates and FIO2. He was followed by Dr Moody from pulmonology. She recommended slow steroid t aper, PJP prophylaxis while on prednisone and added spiriva. He was weaned to 2 liters NC and home oxygen was set up. he is eating and drinking and stable for discharge to home. discharge discussed with Dr Stephens. Home Meds and New Rx's Prescriptions: New Spiriva Respimat 2.5 mcg/actuation Mist 2 puff inhalation DAILY Qty: 4 RF: 0 melatonin 3 mg Tablet 3 mg PO HS Qty: 0 RF: 0 sulfamethoxazole-trimethoprim 800-160 mg Tablet 1 tab PO DAILY Qty: 30 RF: 0 Continued albuterol sulfate 8.5 GM HFA aerosol inhaler 2 puff Inhalation PRN PRNRF: 0 budesonide-formoterol [Symbicort] 60 PUFF HFA aerosol inhaler 2 puff Inhalation BID RF: 0 lisinopril 5 MG tablet 5 mg PO DAILY RF: 0 guaifenesin [Mucinex] 600 mg Tablet Extended Release 12hr 600 mg PO BID Qty: 0 RF: 0 Changed prednisone 10 mg tablet See Rx Instructions .ROUTE .COMPLEX Qty: 90 RF: 0 omeprazole 20 MG capsule,delayed release(DR/EC) 40 mg PO DAILY Qty: 0 RF: 0 Discontinued naproxen sodium 550 MG tablet 2 tab PO DAILY RF: 0 Discharge Instructions Instructions: COVID-19 (Coronavirus Disease 2019) (DC) Additional Instructions: - continue to titrate O2 as able to O2 sat 88-92% - recommend ambulation and up to chair as much as able - continue IS and Acapella - proning as much as able steroid taper for discharge: - prednisone 60mg for 1 week, 50mg for 1 week, 40mg for 1 week, 30mg for 1 week, 20mg for 1 week, 10mg for 1 week, 5mg for 1 week - will need to be on Bactrim for PJP (Pneumocystis pneumonia) prophylaxis until on less than 20mg prednisone Rheumatoid arthritis - would recommend against further Rituxan - recommend discussing with editor news once discharged Stand Alone Forms: Nursing Discharge Form Referrals: Heath Anderson [Primary Care Provider] - (Please call Tuesday to make a follow up appointment) Niru Moody MD [ [facility] STAFF PHYSICIAN] - (Please call Tuesday to make an appointment. ) Activity:: Activity as Tolerated Equipment/Supplies:: 2-4 L NC Diet:: As Tolerated Discharge Orders Discharge Orders: Discharge Order (Routine); Ordered 08/28/21 Ordered By: Mervat Romero Discharge Data Discharge Date/Time-TO BE ENTERED AT DEPARTURE: 08/28/21 13:30 DS: Summary Time Spent with Patient providing and/or coordinating discharge services: Less than 30 minutes Status at Discharge Functional status at discharge: independent ambulation Overall status at discharge: patient is back to baseline Mental Status: mental status grossly normal Speech and Movement: speech and movement normal Mood: congruent mood Affect: normal affect Exam Const General: cooperative, comfortable and no acute distress Nutritional Appearance: average body habitus Orientation: alert, awake and oriented x3 HENMT Head: normal to inspection, normocephalic and atraumatic Mouth: moist mucous membranes Eyes General: appearance normal, both eyes and all related structures Neck Neck: normal visual inspection Resp Effort & Inspection: normal respiratory effort and able to speak in complete sentences Cardio Rate: regular rate Rhythm: regular rhythm Skin General skin exam: no rashes or lesions noted Neuro General: patient alert, patient awake and patient oriented x3 Extrem General: normal to inspection and full ROM Psych Mental Status: mental status grossly normal Speech and Movement: speech and movement normal Mood: congruent mood Affect: normal affect DS: Data Vitals/I&O Vitals and I&O: Vital Signs Temperature 35.9 C L 08/28/21 09:39 Temperature Source Tympanic 08/28/21 09:39 Pulse 70 08/28/21 09:39 Pulse Rhythm Regular 08/28/21 10:01 Pulse 63 08/24/21 16:00 Respiratory Rate 18 08/28/21 09:39 Respiratory Effort 08/28/21 10:01 Respiratory Depth Normal 08/28/21 10:01 Respiratory Pattern Normal 08/28/21 10:01 Blood Pressure 114/67 08/28/21 09:39 Blood Pressure Mean 79 08/18/21 17:01 Blood Pressure Position Sitting 08/18/21 13:49 Pulse Oximetry 94 08/28/21 09:39 Oxygen Delivery Method Nasal Cannula 08/28/21 09:39 Oxygen Flow Rate 2 08/28/21 09:39 Fraction of Inspired Oxygen (FIO2) 30 08/27/21 09:21 Pain Level 0 08/28/21 09:39 Comment 08/24/21 16:20 Intake & Output 08/27/21 08/28/21 08/28/21 23:59 11:59 23:59 Other: Urine Appearance Clear Clear Comment Pt reports voiding w/o difficulty. Voiding Methods Toilet PFSH All Active Problems (Updated 08/29/21 @ 00:02 by SHAYY DEAN) Acute respiratory failure with hypoxia (Acute) Pneumonia (Acute) Medical History (Updated 08/29/21 @ 00:02 by SHAYY DEAN) COPD (chronic obstructive pulmonary disease) Pneumonia due to COVID-19 virus Rheumatoid arthritis Social History Smoking/Tobacco Use Status: Former Tobacco Use Smoking risk assessment performed?: Yes Alcohol Intake: current Alcohol Intake frequency: holidays/special occasions only Drug use: Never Substance use type: does not use Do you feel safe at home: Yes Do you feel safe in your relationship?: Yes
--- NOTE | 2021-08-28 12:59 | PDOC.CMDIS ---
- If Service Date Differs Date of service: 08/28/21 Time of Service: 12:59 LACE Index Scoring Tool - Questions: Length of Stay (in days): 7 - 13 Acuity (Admit via E.D.?): Yes Comorbidities: Chronic Pulmonary Disease E.D. Visits: 2 - Answers: Total Score: 12 Risk of Readmission: High Risk Care Management Discharge Reason for Hospitalization: Hypoxia secondary to COVID Discharge Plan: Yair will be discharged home with new home oxygen which was arranged yesterday by RT. He will transport with his and follow up with his community providers. Patient/Family Education Needs: Review discharge instructions, discuss Ask Me Three. Services Needed at Discharge: Oxygen Therapy
--- NOTE | 2021-08-31 18:30 | PT.INDS ---
Date of service: 08/31/21 PT Notes Visit Reasons: Hypoxia secondary to Covid Physical Therapy Inpatient Discharge Summary Date: 09/01/2021 Dates of service 08/25/2021 only This is a clinical summary of care provided for the duration of dates listed above. No charge was made in the completion of this documentation. Referring Doctor: Mervat Romero NP PT Orders: PT CONSULT: Provide exercises he can perform Precautions: Fall. Standard. Activity as tolerated. COVID-19 PPE required. Patient Profile/Admitting Diagnosis: Yair is a 66-year-old male on rheumatoid arthritis medication who presented to the ED on 08/18/2021 due to worsening shortness of breath. Patient is diagnosed with acute respiratory failure with hypoxia pneumonia due to COVID-19 infection, COPD exacerbation PMHX: All Active Problems (Updated 08/18/21 @ 15:42 by Mervat Romero NP) Discharge planning issues (Acute) DVT prophylaxis (Acute) Hypoxia (Acute) Pneumonia due to COVID-19 virus (Acute) Rheumatoid arthritis (Acute) Pneumonia (Acute) COPD (chronic obstructive pulmonary disease) (Chronic) Social History/Home Situation: Lives with in a private home with 4 steps to enter with rails on both sides. Independent with all aspects of ADLs prior to admission. No falls in the past year Equipment Owned/DME: None Subjective: NT. See most recent ENTRY LEVEL TRUCK DRIVER notes. Objective: General Observation: NT. See most recent ENTRY LEVEL TR[employer] DRIVER notes. Mental Status: NT. See most recent ENTRY LEVEL TRUCK DRIVER notes. Pain: NT. See most recent ENTRY LEVEL TRUCK DRIVER notes. Vital Signs: NT. See most recent ENTRY LEVEL TRUCK DRIVER notes. ROM: Right Upper Extremity: Shoulder Flexion WFL. Shoulder abduction WFL. Elbow flexion WFL. Wrist flexion WFL. Functional opening and closing of hand WFL. Left Upper Extremity: Shoulder Flexion WFL. Shoulder abduction WFL. Elbow flexion WFL. Wrist flexion WFL. Functional opening and closing of hand WFL. Right Lower Extremity: Hip flexion WFL. Hip abduction WFL. Knee flexion WFL. Ankle dorsiflexion WFL. Ankle plantarflexion WFL. Left Lower Extremity: Hip flexion WFL. Hip abduction WFL. Knee flexion WFL. Ankle dorsiflexion WFL. Ankle plantarflexion WFL. Strength: Right Upper Extremity: Shoulder flexors 4/5. Shoulder abductors 5/5. Elbow flexors 5/5. Elbow extensors 5/5. Slot Editor strong. Left Upper Extremity: Shoulder flexors 4/5. Shoulder abductors 5/5. Elbow flexors 5/5. Elbow extensors 5/5. Slot Editor strong. Right Lower Extremity: Hip flexors 5/5. Hip abductors 5/5. Knee flexors 5/5. Knee extensors 5/5. Ankle dorsiflexors 5/5. Ankle plantarflexors 5/5. Left Lower Extremity: Hip flexors 5/5. Hip abductors 5/5. Knee flexors 5/5. Knee extensors 5/5. Ankle dorsiflexors 5/5. Ankle plantarflexors 5/5. Bed Mobility/Transfers: Rolling independent Supine to sit independent Sit to supine independent Sit to stand independent Stand to sit independent Bed to reclining chair with independent Reclining chair to bed with independent Gait: Instructed patient with level surface ambulation of 88 feet with independence. No assistive device needed. Ana decreased. SOB worsening with desaturation to 86% on 5 L/min. Balance: Static Sitting: Normal Dynamic Sitting: Normal Static Standing: Normal Dynamic Standing: Good Assessment: Yair is independent with all in-room ambulation and transfers with no assistive device required. He has been provided with standing level lower extremity exercises interspersed with upper extremity exercises combined with chest expansion/deep breathing exercises with special instructions given to ensure that he requests nursing or RT staff to increase oxygen saturation to 5 L when he is about to do his exercises in the morning and in the afternoon. Patient demonstrates 100% mastery of room exercises and is agreeable to exercise progression in 5 days as he is able to tolerate. Patient presents with clinical signs and symptoms consistent with current/admitting diagnoses that have resulted to mobility limitations, gait instability, generalized weakness, and overall ADL decline as demonstrated by the following impairment level findings: 1. Impaired activity tolerance 2. Shortness of breath Impairments are contributing to the following functional limitations: 1. Increased completion time for mobility ADL performance Goals: Goals X 2 weeks 1. Patient will demonstrate independent in room ambulation and progressive strengthening exercise performance with oxygen saturation staying above 88% on 3 L/min of oxygen supplementation. NOT MET DISCHARGE RECOMMENDATIONS: [X] Home with no services. Home when medically cleared by hospitalist. Patient will be provided with home exercise program as needed. [] Home with services [specify] [] Home with outpatient PT [] [] SNF for continued rehabilitation [] [] Residential Care [] [] SNF versus LTC based on ability to participate and progress [] TREATMENT CODE/TIME: NC Thank you for the opportunity to participate in the care of this patient. Opal King PT, DPT, CLT [facility] [place], [place]
== END 2021-08-28 13:30 | disposition home or self-care (01) | DRG 177 ==
LOC: ER 17:25 → MS 17:27
PROVIDERS: Internal Medicine; Nurse Practitioner Acute Care; Admitting Provider Internal Medicine; Emergency Provider Emergency Medicine; PCP Family Medicine; Visit Provider Internal Medicine
DX: U07.1 COVID-19 (principal); J12.82 Pneumonia due to coronavirus disease 2019; J96.01 Acute respiratory failure with hypoxia; J44.0 Chronic obstructive pulmonary disease with (acute) lower respiratory infection; M06.9 Rheumatoid arthritis, unspecified
CPT/HCPCS: 36415; 71275; 80048; 80053; 80076; 82805; 84145; 85027; 87040; 87635; 93005; 94618; 94640; 96374; 97110; 97162; 97530; 99285; J1650; 36600; 71045; 82728; 83735; 83880; 84484; 85025; 85379; 85610; 86140; 93010; 94660; 94664; 94667; 94668; 94760; 99232; 99233; 99239; 99284; J1100; J3490; J8540

== ENCOUNTER 2021-10-26 01:04 | Outpatient (CLI) | payer MEDICARE, SELFPAY ==
--- NOTE | 2021-10-26 07:15 | DI.CT_ITS ---
Exam(s) CT CHEST WO EXAM: CT CHEST WO CLINICAL HISTORY: f/u organizing pneumonia from COVID after steroids,j84.89 TECHNIQUE: Imaging Protocol: Axial computed tomography images with coronal and sagittal reformatted images were created and reviewed CONTRAST MATERIAL: Intravenous: Omnipaque 350 Contrast volume:structured data in ml. COMPARISON: CT CT CHEST PE CTA from 08/18/2021 FINDINGS: There has been significant interval improvement previously noted bilateral infiltrates. There are mi nimal residual ground-glass infiltrates bilaterally. There are mild reticular densities in the upper lobes, right greater than left. Small mediastinal and hilar hilar lymph nodes. No pleural or peric ardial effusion. Minimal calcification at the aortic arch. No heart size normal. Degenerative abbott ges in the spine. Upper abdomen unremarkable. The patient is status post cholecystectomy.. IMPRESSION: Significant interval improvement of bilateral pneumonia with minimal residual ground-glass opacities and reticular changes. RADIATION DOSE DELIVERED: 586.56mGy.cm Total DLP DATA REPOSITORY: All CT scans at this facility are submitted to the National Radiology Data Registry (NRDR) Dose Index Registry (DIR) with the [employer] (ACR). RADIATION OPTIMIZATION: All CT scans at this facility use at least one of these dose optimization te chniques: automated exposure control; mA and/or kV adjustment per patient size (includes targeted exa ms where dose is matched to clinical indication); or iterative reconstruction.
== END 2021-10-26 01:24 ==
PROVIDERS: PCP Internal Medicine; Visit Provider Student in an Organized Health Care Education/Training Program
DX: J12.82 Pneumonia due to coronavirus disease 2019 (principal); U09.9 Post COVID-19 condition, unspecified; J84.89 Other specified interstitial pulmonary diseases; Z79.52 Long term (current) use of systemic steroids; J98.4 Other disorders of lung
CPT/HCPCS: 71250

== ENCOUNTER 2021-10-26 01:37 | Outpatient (CLI) | payer MEDICARE, SELFPAY ==
[2021-10-26] MEDS: Inhaler, Assist Device 1 EACH MC (14:40)
[2021-10-26] MEDS: Albuterol HFA 18 GM 200 PUFF INH IH (14:40)
== END 2021-10-26 01:38 | disposition home or self-care (01) ==
LOC: RT 01:37
PROVIDERS: PCP Internal Medicine; Visit Provider Student in an Organized Health Care Education/Training Program
DX: J44.9 Chronic obstructive pulmonary disease, unspecified (principal); R06.09 Other forms of dyspnea; U09.9 Post COVID-19 condition, unspecified; Z87.891 Personal history of nicotine dependence
CPT/HCPCS: 94060; 94726; 94729

== ENCOUNTER 2021-12-04 01:03 | Outpatient (CLI) | payer MEDICARE, SELFPAY ==
--- NOTE | 2021-12-04 09:29 | DI.US_ITS ---
APPROVED REPORT EXAM: Comprehensive 2D, Doppler, and color-flow Echocardiogram Patient Location: Out-Patient Hand Assembler: Alisha Dent RDCS (AE) Indications: Dyspne on exertion, Hypoxia Other Information Study Quality: Adequate Conclusion Normal left ventricular wall thickness and chamber size. Estimated ejection fraction is 60%. Wall m otion is normal Normal right ventricular size and systolic function Both atria are normal in size Mildly sclerotic trileaflet aortic valve without stenosis or regurgitation Normal mitral valve with trace regurgitation Normal tricuspid valve with mild regurgitation. Estimated right ventricular systolic pressure is 34 mmHg Mildly dilated ascending aorta measuring 3.67 cm Wall motion Left Ventricle The left ventricle is normal size. The left ventricular systolic function is normal. The left ventric ular ejection fraction is within the normal range. There is normal left ventricular wall thickness. T here is normal LV segmental wall motion. There is no ventricular septal defect visualized. LVEF is 59 %. Right Ventricle The right ventricle is normal size. The right ventricular systolic function is normal. The RVSP is 34 .3 mmHg.. Atria The left atrium size is normal. The right atrium size is normal. The interatrial septum is intact wit h no evidence for an atrial septal defect. Aortic Valve The aortic valve is mildly sclerotic Aortic valve is trileaflet. There is no aortic valvular stenosis . No aortic regurgitation is present. Mitral Valve The mitral valve is normal in structure. No evidence of mitral valve stenosis. Trace mitral regurgita tion. Tricuspid Valve The tricuspid valve is normal in structure. There is no tricuspid valve stenosis. Mild tricuspid regu rgitation. Pulmonic Valve The pulmonary valve is normal in structure. There is no pulmonic valvular stenosis. Trace pulmonic re gurgitation. Great Vessels The aortic root is normal in size. The ascending aorta is mildly dilated.3.67 cm Aortic arch is larry l in caliber. IVC is normal in size and collapses >50% with inspiration. Pericardium There is no pericardial effusion. 2D Dimensions IVSD d PLAX 0.93 cm M: 0.6-1.2 LV Vol A2C d MOD 109.2 mL LVPW d PLAX 0.92 cm M: 0.6 - 1.2 LV Vol A4C d MOD 107.0 mL LVID d PLAX 4.63 cm M: 4.2 - 5.8 LA vol/ BSA A2C s A-L 24.5 mL/m2 LVDs 3.10 cm M: 2.5 - 4.0 LA vol/ BSA A4C s A-L 20.4 mL/m2 Ao Root d 3.63 cm M: 3.1 - 3.7 LA Vol/ BSA Biplane s A-L 22.6 mL/m2 RA Area A4C 17.54 cm2 LA Area A4C s MOD 15.78 cm2 RA Vol/ BSA A4C s A-L 24.0 mL/m2 LA Area A2C s MOD 17.48 cm2 Ao Asc Diam d 3.67 cm M: 2.6 - 3.4 LV EF A4C MOD 58.2 % LV EF Teichholz 61.5 % LV EF A2C MOD 58.9 % LVEF (Leyva's) 58.65 % M: 52 - 72 LV EF Biplane MOD 58.7 % LV Volume 82.36 mL M: 62 - 150 SV 63.68 mL LV Volume Index 42.67 mL/m2 M: 34 - 74 SV Index 32.93 mL/m2 LV Vol Biplane MOD 108.6 mL FS 32.95 % M-Mode TAPSE 2.25 cm (M/F) >1.7 LV Diastology MV E' medial 0.073 (>0.07 m/s) E/A Ratio 1.1 LV E/e MED 10.90 (<14) MV E Vmax 0.80 (0.4-1.3 m/s) MV E' lateral 0.130 (>0.1 m/s) MV A Vmax 0.75 (0.4-1.3 m/s) LV E/e LAT 6.15 (<14) MV E/A Ratio 1.02 MV E/E' medial 10.94 MV E/E' lateral 6.19 Aortic Valve LVOT Area 2.97 cm2 AoV Area Vmax 2.54 cm2 LVOT Vmax 1.26 m/s AoV Area/ BSA (Vmax) 1.32 cm2/m2 LVOT Mean Louie. 0.74 m/s SARAHI Mean Louie. 2.20 cm2 LVOT Peak Grad 6.4 mmHg SARAHI Mean Louie. Index 1.14 cm2/m2 LVOT Mean Grad 2.7 mmHg LVOT VTI 0.264 m LVOT Diam s 1.90 cm AoV Vmax 1.47 m/s Velocity Ratio 0.85 AoV Mean Louie. 0.99 m/s AoV Peak Grad 8.6 mmHg LVOT SV 78.17 mL AoV Mean Grad 4.5 mmHg AoV VTI 0.297 m AoV Area VTI 2.63 cm2 AoV Area/ BSA (VTI) 1.36 cm/m2 Mitral Valve MV DT 209 (160-240 msec) MV PHT 60 msec MV Area PHT 3.64 cm2 MV VTI 0.288 m MV Area VTI 2.71 (4.0-6.0 cm2) Pulmonary Valve PV Vmax 1.08 (0.5-1.5 m/s) RVOT Peak Gr. 3.34 mmHg PV Peak Grad 4.7 mmHg RVOT Mean Gr. 1.70 mmHg PV Mean Grad 2.5 mmHg RVOT VTI 0.192 m PV VTI 0.222 m RVOT Vmax 0.91 m/s Tricuspid Valve TR Peak Grad 31.3 mmHg TR Vmax 2.80 m/s RA Pressure 3.00 mmHg RVSP (TR) 34.3 mmHg
== END 2021-12-04 01:23 ==
PROVIDERS: PCP Internal Medicine; Visit Provider Student in an Organized Health Care Education/Training Program
DX: J96.01 Acute respiratory failure with hypoxia (principal); R06.09 Other forms of dyspnea
CPT/HCPCS: 93306

== ENCOUNTER 2022-07-23 15:26 | Outpatient (REF) | payer MEDICARE, SELFPAY ==
[2022-07-23 16:17] LABS: C Diff PCR Negative (Negative)
[2022-07-26 15:15] LABS: Campylobacter PCR Negative (Negative); Salmonella PCR Negative (Negative); Shiga Toxin PCR Negative (Negative); Shigella/Enteroinvasive Ecoli Negative (Negative)
== END 2022-07-23 15:27 | disposition home or self-care (01) ==
LOC: LBN 15:26
PROVIDERS: PCP Internal Medicine; Visit Provider Internal Medicine
DX: R19.7 Diarrhea, unspecified (principal)
CPT/HCPCS: 87329; 87493; 87505

== ENCOUNTER 2022-07-28 11:40 | Outpatient (CLI) | payer MEDICARE, SELFPAY ==
[2022-08-03 11:23] LABS: Misc Referral (MAYO) See Comments
== END 2022-07-28 11:41 | disposition home or self-care (01) ==
LOC: LBO 11:42
PROVIDERS: PCP Internal Medicine; Visit Provider Internal Medicine
DX: K52.9 Noninfective gastroenteritis and colitis, unspecified (principal)
CPT/HCPCS: 36415; 83516

== ENCOUNTER 2022-07-29 10:03 | Outpatient (REF) | payer MEDICARE, SELFPAY ==
[2022-08-02 15:09] LABS: Calprotectin 127 mcg/g
== END 2022-07-29 10:04 | disposition home or self-care (01) ==
LOC: LBN 10:03
PROVIDERS: PCP Internal Medicine; Visit Provider Internal Medicine
DX: K52.9 Noninfective gastroenteritis and colitis, unspecified (principal)
CPT/HCPCS: 82710; 83630; 83993

== ENCOUNTER 2023-01-21 10:34 | Outpatient (REF) | payer MEDICARE, SELFPAY | END 2023-01-21 10:35 | disposition home or self-care (01) | LOC: LBN 10:34 | PROVIDERS: PCP Internal Medicine; Visit Provider Internal Medicine Pulmonary Disease | DX: J41.1 Mucopurulent chronic bronchitis (principal) | CPT/HCPCS: 87116; 87206 ==

== ENCOUNTER 2023-01-27 15:24 | Outpatient (REF) | payer MEDICARE, SELFPAY | END 2023-01-27 15:25 | disposition home or self-care (01) | LOC: LBN 15:24 | PROVIDERS: PCP Internal Medicine; Visit Provider Internal Medicine Pulmonary Disease | DX: J41.1 Mucopurulent chronic bronchitis (principal) | CPT/HCPCS: 87116; 87206 ==

== ENCOUNTER 2023-01-28 14:37 | Outpatient (REF) | payer MEDICARE, SELFPAY | END 2023-01-28 14:38 | disposition home or self-care (01) | LOC: LBN 14:37 | PROVIDERS: PCP Internal Medicine; Visit Provider Internal Medicine Pulmonary Disease | DX: J41.1 Mucopurulent chronic bronchitis (principal) | CPT/HCPCS: 87116; 87206 ==

== ENCOUNTER → 2023-10-17 03:31 | Outpatient (CLI) | payer MEDICARE, SELFPAY ==
--- NOTE | 2023-10-17 10:54 | DI.RAD_ITS ---
Exam(s) XR HIP RT COMPLETE AP PELVIS EXAM: XR HIP RT COMPLETE AP PELVIS CLINICAL HISTORY: CHRONIC RT HIP PAIN,M25.551,G89.29. TECHNIQUE: 2D digital imaging was performed of the right hip. Four images were obtained. AP pelvis and lateral right hip views were obtained. COMPARISON: No exams were available for comparison FINDINGS: BONES: No acute fracture is present. No bony destructive lesion is seen. JOINTS: No dislocation present. There are mild degenerative changes seen in the hips bilaterally. Th e sacroiliac joints are intact. Mild degenerative changes are seen in the lower lumbar spine. The s duran this is pubis is unremarkable. SOFT TISSUE: Normal. IMPRESSION: Mild degenerative changes in the hips. DATA REPOSITORY: RADIATION DOSE DELIVERED:
== END ==
PROVIDERS: PCP Internal Medicine; Visit Provider Internal Medicine
DX: M16.0 Bilateral primary osteoarthritis of hip (principal)
CPT/HCPCS: 73502

== ENCOUNTER → 2023-12-12 08:32 | Outpatient (BNVA) | payer MEDICARE, SELFPAY | PROVIDERS: PCP Internal Medicine; Referring Provider Internal Medicine; Visit Provider Student in an Organized Health Care Education/Training Program | DX: M70.61 Trochanteric bursitis, right hip (principal) | CPT/HCPCS: 20610; 99213; J1010; J1040 ==

== ENCOUNTER 2025-06-25 10:48 | Outpatient (CLI) | payer MEDICARE, SELFPAY ==
--- NOTE | 2025-06-25 11:09 | DI.RAD_ITS ---
Exam(s) XR FOOT RT COMPLETE EXAM: XR FOOT RT COMPLETE CLINICAL HISTORY: PAIN RT TOES, M79.674,PAIN RT 5TH TOE,S/P ARTHRODESIS,H/O RA. TECHNIQUE: 2D digital imaging was performed. COMPARISON: No exams were available for comparison FINDINGS: No evidence of acute fracture nor diastasis of the Lisfranc joint. There has been resection of the heads of the 2nd, 3rd, 4th, and 5th metatarsals and there is dorsal fusion hardware across the great toe metatarsophalangeal joint. 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 There is fusion across the PIP joint of the 3rd toe. There are degenerative changes at the 2nd tarsometatarsal joint. There is a large inferior calcaneal spur. There is no calcification in the plantar fascia. No evidence of osteomyelitis. IMPRESSION: Postsurgical changes as above. No evidence of osteomyelitis. Dorsal fusion hardware noted across the great toe metatarsophalangeal joint and there appears to be fusion at this level. No hardware loosening. DATA REPOSITORY: RADIATION DOSE DELIVERED:
== END 2025-06-25 11:08 ==
PROVIDERS: PCP Internal Medicine; Visit Provider Internal Medicine
DX: M79.674 Pain in right toe(s) (principal); Z98.890 Other specified postprocedural states
CPT/HCPCS: 73630